=== PATIENT | female | born 1940 | race Caucasian/White ===

== ENCOUNTER 2017-10-24 16:16 | Outpatient (CLI) | payer MEDICARE, MEDICAID | END 2017-10-24 16:17 | disposition critical access hospital (66) | LOC: EMS 16:16 | PROVIDERS: ATTEND Surgery | DX: M54.2 Cervicalgia (principal); R51 Headache; R42 Dizziness and giddiness | CPT/HCPCS: A0425; A0427 ==

== ENCOUNTER 2017-10-24 16:34 | Inpatient (IN) | payer MEDICARE, MEDICAID ==
--- NOTE | 2017-10-24 17:03 | CT Preliminary Report ---
Exam: CT HEAD W/O STROKE PROTOCOL IMPRESSION: Normal head CT. [facility] The call report notification system was initiated by Dr. Leatha Silva at 16:59 hrs on 10/24/17. The above findings were discussed with Dr Lakhani by Dr. Leatha Silva at 17:02 hrs on 10/24/17. SITE ID: [id number]
[2017-10-24 17:13] LABS: BASOPHILS # (AUTO) 0.1 10^3/uL (0.0-0.1); BASOPHILS % (AUTO) 0.5 %; EOSINOPHILS # (AUTO) 0.1 10^3/uL (0.0-0.7); EOSINOPHILS % (AUTO) 0.8 %; HGB - HEMOGLOBIN 10.8 g/dL (12.0-16.0); LYMPHOCYTES # (AUTO) 1.5 10^3/uL (1.5-3.5); LYMPHOCYTES % (AUTO) 13.6 %; MEAN CORPUSCULAR HEMOGLOBIN 29.8 pg (27.0-31.0); MEAN CORPUSCULAR HGB CONC 32.2 g/dL (32.0-36.0); MEAN CORPUSCULAR VOLUME 92.7 fL (81.0-99.0); MEAN PLATELET VOLUME 7.1 fL (7.9-10.8); MONOCYTES # (AUTO) 0.8 10^3/uL (0.0-1.0); NEUTROPHILS # (AUTO) 8.7 10^3/uL (1.5-6.6); NEUTROPHILS % (AUTO) 78.1 %; PLT - PLATELET COUNT 284 10^3/uL (130-450); RED BLOOD COUNT 3.61 10^6/uL (4.20-5.40); RED CELL DISTRIBUTION WIDTH 14.2 % (12.0-15.0); WHITE BLOOD COUNT 11.2 x10^3/uL (4.8-10.8)
[2017-10-24 17:22] LABS: PT - PROTHROMBIN TIME 11.1 secs (9.9-12.6)
[2017-10-24 17:27] LABS: ALBUMIN 3.8 g/dL (3.2-5.5); ALBUMIN/GLOBULIN RATIO 1.3 (1.0-2.2); BILIRUBIN,TOTAL 0.2 mg/dL (0.2-1.0); CALCIUM 9.3 mg/dL (8.5-10.3); TOTAL PROTEIN 6.7 g/dL (6.7-8.2)
--- NOTE | 2017-10-24 17:29 | CT Report ---
EXAM: CT HEAD EXAM DATE: 10/24/2017 04:54 PM. CLINICAL HISTORY: History of prior stroke without residual deficit. Patient presents with right-sided weakness and left neck pain at 1300 today. COMPARISON: None. TECHNIQUE: Multiaxial CT images were obtained from the foramen magnum to the vertex. Reformats: Coron al. IV contrast: None. In accordance with CT protocol optimization, one or more of the following dose reduction techniques w ere utilized for this exam: automated exposure control, adjustment of mA and/or KV based on patient s ize, or use of iterative reconstructive technique. FINDINGS: Parenchyma: No intraparenchymal hemorrhage. No evidence of mass, midline shift, or CT findings of inf arction. Seymour-white differentiation is distinct. Extraaxial Spaces: Normal for age. No subdural or epidural collections identified. Ventricles: Normal in size and position. Sinuses and Orbits: Imaged paranasal sinuses, orbits, and mastoids show no significant abnormality. Bones: No evidence of fracture or calvarial defect. Other: None. IMPRESSION: Normal head CT. [facility] The call report notification system was initiated by Dr. Leatha Silva at 16:59 hrs on 10/24/17. The above findings were discussed with Dr Lakhani by Dr. Leatha Silva at 17:02 hrs on 10/24/17. Referring Provider Line: [phone] SITE ID: [id number]
[2017-10-24] MEDS ORDERED: IOPAMIDOL-300 100 ML VIAL ONE (17:32)
--- NOTE | 2017-10-24 17:48 | ED Physician Documentation ---
PD HPI FOCAL NEURO - Stated complaint Stated Complaint: POSS STROKE - Chief complaint Chief Complaint: Neuro - History obtained from History obtained from: Patient, Family - History of Present Illness Timing - onset: Enter time (1300), Today Timing - duration: Hours Timing - details: Abrupt onset, Still present Severity of deficit: Moderate Weakness: Hand, Leg, Foot, Right Associated symptoms: Neck pain Contributing factors: negative: Anticoagulated Baseline status: positive: A&OX3, ambulatory, indep, Cane Similar symptoms before: Has not had sx before Recently seen: Not recently seen - Additional information Additional information: 77 y/o female was at home this afternoon when she developed acute neck pain in the left side and felt that she could see the artery in her neck distended on the left side and shortly after she developed weakness on the right side. She is having some trouble with walking and the initially her speech was dysarthric according to family. The patient was initially reluctant to call 911 but she was able to call and was transported to the hospital. Review of Systems Constitutional: denies: Fever Eyes: denies: Decreased vision Ears: denies: Ear pain Nose: denies: Congestion Throat: denies: Sore throat Cardiac: denies: Chest pain / pressure, Palpitations Respiratory: denies: Dyspnea, Cough GI: denies: Abdominal Pain, Nausea, Vomiting : denies: Dysuria, Frequency Skin: denies: Rash Musculoskeletal: denies: Neck pain, Back pain, Extremity pain Neurologic: reports: Focal weakness, Difficulty speaking. denies: Generalized weakness, Numbness PD PAST MEDICAL HISTORY - Past Medical History Past Medical History: Yes Cardiovascular: Hypertension, [place] Respiratory: COPD Neuro: CVA Endocrine/Autoimmune: Type 2 diabetes - Past Surgical History Past Surgical History: Yes General: Cholecystectomy, Appendectomy, Bowel surgery Ortho: Hip replacement /UNIT AIDE: Hysterectomy - Present Medications Home Medications: Ambulatory Orders Medication Instructions Recorded Confirmed Alprazolam [Xanax] 0.25 mg PO HS 09/18/13 09/18/13 Aspirin [Aspir 81] 81 mg PO DAILY 09/18/13 09/18/13 Dexlansoprazole [Dexilant] 60 mg PO 09/18/13 09/18/13 HYDROcod/ACETAM 5/325 [Vicodin 1 - 2 ea PO Q6H PRN 09/18/13 09/18/13 5/325] Ibuprofen [Advil] 400 mg PO DAILY 09/18/13 09/18/13 Lisinopril [Zestril] 10 mg PO BID 09/18/13 09/18/13 Metformin HCl [Glumetza] 500 mg PO BID 09/18/13 09/18/13 - Allergies Allergies/Adverse Reactions: Allergies Allergy/AdvReac Type Severity Reaction Status Date / Time Penicillins Allergy Intermediate Rash Verified 10/24/17 17:18 diazepam [From Valium] AdvReac Intermediate "run up Verified 10/24/17 17:18 and down the melara" - Social History Does the pt smoke?: Yes Smoking Status: Current every day smoker Does the pt drink ETOH?: No Does the pt have substance abuse?: No PD ED PE NORMAL - Vitals Vital signs reviewed: Yes (normal ) - General General: Alert and oriented X 3, No acute distress, Well developed/nourished - HEENT HEENT: Atraumatic, PERRL, EOMI - Neck Neck: Supple, no meningeal sign, No bony TTP - Cardiac Cardiac: RRR, No murmur - Respiratory Respiratory: No respiratory distress, Clear bilaterally - Abdomen Abdomen: Soft, Non tender - Back Back: No CVA TTP, No spinal TTP - Derm Derm: Normal color, Warm and dry, No rash - Extremities Extremities: No deformity, No edema - Neuro Neuro: Alert and oriented X 3, No sensory deficit, Normal speech, Other (see stroke scale) Eye Opening: Spontaneous Motor: Obeys Commands Verbal: Oriented GCS Score: 15 - Psych Psych: Normal mood, Normal affect NIHSS - Level of Consciousness Level of consciousness: (0) Alert, Keenly responsive LOC Questions: (0) Answers both Q's correct LOC Commands: (0) Performs both correctly - Gaze Best Gaze: (0) Normal - Visual Visual: (1) Partial hemianopia - Facial Palsy Facial Palsy: (0) Normal, symmetrical movement - Motor Arms (both separate) Motor Arm (right): (1) Drift Motor Arm (left): (0) No drift - Motor Legs (both separate) Motor Leg (right): (2) Some effort against gravity Motor Leg (left): (0) No drift - Limb Ataxia Limb Ataxia: (1) Present in 1 limb - Sensory Sensory: (0) Normal - Best Language Best Language: (0) No aphasia - Dysarthria Dysarthria: (0) Normal - Extinction and Inattention (formally neg Extinction and inattention: (0) No abnormality - Total Score/Results Total Score/Result: 5 Results - Vitals Vitals: Vital Signs - 24 hr 10/24/17 10/24/17 16:32 18:31 Temperature 36.8 C 36.8 C Heart Rate 70 69 Respiratory 18 15 Rate Blood Pressure 121/66 130/65 O2 Saturation 96 Oxygen O2 Source Room air - EKG (time done) 1722 Rate: Rate (enter#) (68) Rhythm: NSR Compare to prior EKG: Changed from prior EKG (SPT 09-18-13 the rate has decreased) Computer interpretation: Agree with computer - Labs Labs: Laboratory Tests 10/24/17 10/24/17 10/24/17 17:03 17:03 17:03 WBC 11.2 H RBC 3.61 L Hgb 10.8 L Hct 33.5 L MCV 92.7 MCH 29.8 MCHC 32.2 RDW 14.2 Plt Count 284 MPV 7.1 L Neut # 8.7 H Lymph # 1.5 [place] # 0.8 Eos # 0.1 Baso # 0.1 Absolute Nucleated RBC 0.00 Nucleated RBC % 0.0 PT 11.1 INR 1.0 Sodium 135 Potassium 3.6 Chloride 106 Carbon Dioxide 19 L Anion Gap 10.0 BUN 42 H Creatinine 2.0 H Estimated GFR (MDRD) 24 L Glucose 121 H Calcium 9.3 Total Bilirubin 0.2 AST 13 ALT 10 Alkaline Phosphatase 97 Troponin I Total Protein 6.7 Albumin 3.8 Globulin 2.9 Albumin/Globulin Ratio 1.3 Lipase 32 10/24/17 17:03 WBC RBC Hgb Hct MCV MCH MCHC RDW Plt Count MPV Neut # Lymph # [place] # Eos # Baso # Absolute Nucleated RBC Nucleated RBC % PT INR Sodium Potassium Chloride Carbon Dioxide Anion Gap BUN Creatinine Estimated GFR (MDRD) Glucose Calcium Total Bilirubin AST ALT Alkaline Phosphatase Troponin I < 0.04 Total Protein Albumin Globulin Albumin/Globulin Ratio Lipase - Rads (name of study) CT neck angiogram Radiology: Prelim report reviewed (Impression: CTA neck 1. Vascular calcifications of the carotid bulbs with no significant high-grade stenosis seen.), EMP read indepedently, See rad report CT head without Radiology: Prelim report reviewed (Impression: Normal head CT.), EMP read indepedently, See rad report CT head angiogram Radiology: Prelim report reviewed (Impression: 1. No large vessel occlusion. 2. There is an infrarenal medially projecting outpouching arising from the supra clinoid right ICA measuring 1.3 x 1.9 mm (series 4, image 110). Finding may represent infundibulum or aneurysm. 3 No other findings to suggest additional definitive aneurysm.), EMP read indepedently, See rad report PD MEDICAL DECISION MAKING - ED course Complexity details: reviewed old records, reviewed results, re-evaluated patient , considered differential, d/w patient, d/w family ED course: 77-year-old female with stroke symptoms involving the left leg, and hand beginning about 1 PM today has had some improvement in her symptoms since being here in the emergency department. Stroke evaluation including CT of the head and CT angiogram of the head and neck are all without specific findings with the exception of the small aneurysm. The aneurysm is reviewed with Dr. Koenig at [facility] neuro[facility]iences and he recommends conservative treatment with the size location and age of the patient. I talked to Dr. Contreras Amin for admission of the patient to the hospital here for poststroke treatment. Departure - Departure Disposition: 66 [facility] DC/Xfer Clinical Impression: Cerebrovascular accident (CVA) Qualifiers: CVA mechanism: unspecified Qualified Code(s): I63.9 - Cerebral infarction, unspecified Condition: Stable
[2017-10-24] MEDS ORDERED: IOPAMIDOL-300 100 ML VIAL IVP ONE ×2 (18:03→19:42)
[2017-10-24] MEDS ORDERED: ACETAMINOPHEN 325 MG TABLET PO STA (18:23)
--- NOTE | 2017-10-24 18:45 | CT Report ---
EXAM: CT ANGIOGRAM HEAD AND NECK. CT SCAN HEAD WITH CONTRAST. EXAM DATE:10/24/2017 05:58 PM. CLINICAL HISTORY:77-year-old with history of prior stroke without residual deficit presenting with ri ght-sided weakness and neck pain COMPARISON:CT head 10/24/2017 at 1651 hrs.. TECHNIQUE: Routine axial helical CTA imaging was performed from the aortic arch through the [place] of [place]. Routine axial CT imaging of the head was performed prior to and following contrast administr ation. Reconstructions: Routine multiplanar 3D MIP reconstructions. IV contrast: 70 cc Isovue-370. NASCET Criteria are used for stenosis measurements. In accordance with CT protocol optimization, one or more of the following dose reduction techniques w ere utilized for this exam: automated exposure control, adjustment of mA and/or KV based on patient s ize, or use of iterative reconstructive technique. CT ANGIOGRAM HEAD AND NECK: After scattered calcifications of the aortic arch. Normal three-vessel takeoff. RIGHT: Common Carotid Artery: Patent without significant stenosis. Carotid Bulb: There is moderate atherosclerotic plaque at the bifurcation and siphon. Stenosis at the bifurcation by NASCET criteria: No significant stenosis. Internal Carotid Artery: There is tortuosity of the cervical ICA. No evidence of dissection. Vascular calcifications the cavernous ICA segments. There is a inferomedially projecting outpouching arising from the supraclinoid right ICA measuring 1.3 x 1.9 mm (series 4, image 110). External Carotid Artery: Unremarkable. Vertebral Artery: Patent without significant stenosis. No evidence of dissection. Anterior Cerebral Artery: Patent without significant stenosis, aneurysm, or vascular malformation. Middle Cerebral Artery: Patent without significant stenosis, aneurysm, or vascular malformation. Posterior Cerebral Artery: Patent without significant stenosis, aneurysm, or vascular malformation. Posterior Communicating Artery: Not definitively seen. No aneurysm. LEFT: Common Carotid Artery: Patent without significant stenosis. Carotid Bulb: There is mild to moderate atherosclerotic plaque at the bifurcation and siphon. Stenosi s at the bifurcation by NASCET criteria: No significant stenosis. Internal Carotid Artery: There is tortuosity of the cervical ICA. No evidence of dissection. Vascular calcifications the cavernous ICA segments. No evidence of aneurysm along the intracranial ICA. External Carotid Artery: Unremarkable. Vertebral Artery: Patent without significant stenosis. No evidence of dissection. Anterior Cerebral Artery: Atretic left A1 segment with normal-appearing left A2 and distal left PHAN b ranches secondary to flow through the anterior communicating artery. Middle Cerebral Artery: Patent without significant stenosis, aneurysm, or vascular malformation. Posterior Cerebral Artery: Patent without significant stenosis, aneurysm, or vascular malformation. Posterior Communicating Artery: Patent. No aneurysm. CENTRAL: Anterior Communicating Artery: Patent. No aneurysm. Basilar Artery: Patent without significant stenosis. No aneurysm. DURAL VENOUS SINUSES AND MAJOR CENTRAL VEINS: Patent. OTHER: The visualized pharynx and larynx appear normal. Major salivary glands appear normal. Right thyroid l obe punctate calcification measuring up to 3 mm (series 2, image 205). No cervical lymphadenopathy or necrotic lymph nodes seen. Soft tissues of the neck appear normal. Right middle lobe triangular shaped pulmonary nodule measuring up to 4 mm (series 2, image 35). Findi ng may be infectious or inflammatory in nature. No acute fracture or traumatic subluxation of the cervical spine. Multilevel degenerative changes. No suspicious osseous lesion. POST-CONTRAST HEAD: Parenchyma: No acute parenchymal hemorrhage, mass, or midline shift. Mild to moderate bilateral areas of white matter hypoattenuation appear chronic. No convincing CT evidence of acute infarct. No abnor mal postcontrast enhancement. Extra-axial Spaces: Normal. No extra-axial fluid collections or hemorrhage. No abnormal enhancement. Ventricles: The ventricles appear age appropriate. No abnormal enhancement. Orbits and Sinuses: Orbits are normal. Paranasal sinuses and mastoid air cells are clear. Extracranial Soft Tissues and Bones: Extracranial soft tissues are unremarkable. No fractures. Other: Vascular calcifications the cavernous ICA segments. IMPRESSION: CT HEAD 1. No acute infarct, hemorrhage, mass, hydrocephalus, or abnormal postcontrast enhancement. CTA NECK 1. Vascular calcifications of the carotid bulbs with no significant high-grade stenosis seen. CTA HEAD 1. No large vessel occlusion. 2. There is a inferomedially projecting outpouching arising from the supraclinoid right ICA measuring 1.3 x 1.9 mm (series 4, image 110). Finding may represent infundibulum or aneurysm. 3. No other findings to suggest additional definitive aneurysm. [facility] Referring Provider Line: [phone] SITE ID: [id number]
[2017-10-24] MEDS ORDERED: PROCHLORPERAZINE 10 MG/2 ML VIAL IVP PRN (19:38)
[2017-10-24] MEDS ORDERED: PROMETHAZINE 25 MG/1 ML VIAL IM PRN (19:38)
[2017-10-24] MEDS ORDERED: ONDANSETRON 4 MG/2 ML VIAL IVP PRN (19:38)
[2017-10-24] MEDS ORDERED: oxyCODONE 5 MG TABLET PO PRN (19:38)
[2017-10-24 20:29] LABS: % IRON SATURATION 9 % (20-50); IRON 33 ug/dL (28-170); TOTAL IRON BINDING CAPACITY 368 ug/dL (250-450); TRANSFERRIN 263 mg/dL (192-382)
[2017-10-24 20:36] LABS: FERRITIN 20.6 ng/mL (11.0-306.8)
[2017-10-24 20:39] LABS: FOLATE 8.77 ng/mL (5.90 - >24.8)
--- NOTE | 2017-10-24 21:23 | XRAY Report ---
EXAM: CHEST RADIOGRAPHY EXAM DATE: 10/24/2017 08:17 PM. CLINICAL HISTORY: Weakness. Leukocytosis. COMPARISON: 09/18/2013. TECHNIQUE: 1 view. FINDINGS: Lungs/Pleura: Mild right base scarring, otherwise no focal opacities evident. No pleural effusion. No pneumothorax. Mediastinum: Within exam limitations, the cardiomediastinal contour is normal. Other: No bony abnormalities noted. IMPRESSION: Mild right base scarring, otherwise unremarkable single view chest. [facility] Referring Provider Line: [phone] SITE ID: [id number]
--- NOTE | 2017-10-24 21:44 | HISTORY & PHYSICAL EXAMINATION ---
Chief Complaint - Chief Complaint Chief Complaint: Right sided weakness History of Present Illness - Admitted From Admitted From:: Emergency department - History Obtained From Records Reviewed: Yes History obtained from: Patient Exam Limitations: None - History of Present Illness HPI Comment/Other: Patient is a very pleasant 77-year-old female with a past medical history significant for CVA, hypertension, diabetes not currently on any medications, coronary artery disease status post stent, hyperlipidemia, colon cancer status post colon resection and history of hip fracture status post repair who presents to the emergency department with a chief complaint of left-sided weakness. The patient states that her symptoms started around 1 PM this afternoon. She states that she lives with her daughter and her daughter just bought a new house so they were cleaning her old house. She states that initially she began having pain in the left side of her neck which has been ongoing for the last few weeks. She states that she complained to her daughter and then sat down on a chair. While she was sitting down on the chair she states that she felt lightheaded and believes she may have passed out. She states that she was not out for very long time but was woken by her daughter. She then returned to her daughter's new home and try to rest. Then later in the afternoon she again experienced pain in her left neck and then noticed she could not lift her right foot. She states that she tried to lift her right foot off the ground but could not get it up. She states that she also tried to lift a Dr. Pepper off the table with her right hand and states that it fell to the floor as she could not keep it held in her hand. She also states that when her granddaughter came over to look at her that she told her that she had a slight left facial droop. The patient also states that she had tingling in her right hand and finally her family called 911 and the patient was brought to the emergency department by ambulance. The patient states that she continues to feel weak on the right side and has headache. She also continues to have the left-sided neck pain. The patient denies any fevers, chills, runny nose, sore throat, nasal congestion , difficulty swallowing, chest pain, shortness of air, cough, repetitions, orthopnea, PND, increased lower extremity swelling, abdominal pain, nausea, vomiting, diarrhea, constipation, urinary urgency, urinary frequency, dysuria, hematuria, polyuria, polydipsia, joint swelling, joint pain, muscle aches, back pain, neck stiffness, recent unintentional weight loss, changes in her appetite , skin changes, skin rash, hair loss, night sweats. On presentation to the emergency department the patient was afebrile and vital signs were within normal limits. The patient's lab work revealed a mild leukocytosis, a mild anemia, a creatinine of 2.0 from a baseline of 1.2 with a mild acidosis. The patient's lactic acid was negative her troponin was negative. The patient continued to have right sided arm and leg weakness. The patient's NIH stroke scale score was 5 according to the emergency room physician. The patient underwent a CT of her head which was normal, CT angiogram of her head and neck which showed no large vessel occlusion however there was a inferomedially projecting outpouching arising from the supraclinoid right ICA measuring 1.3 x 1.9 mm which could represent an aneurysm. The emergency room physician spoke with Dr. Koenig at [facility] who recommended conservative management and recommended the patient be placed in observation for MRI, neuro checks and an echocardiogram. 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 Living arrangement: At home Living Situation: With family Social History Notes: The patient is originally from near the [facility]. She has been living on [facility] for the last 10 years. Her daughter is a respiratory therapist at [employer] and she moved to be closer to her daughter. The patient had 3 daughters 1 of whom has in an unfortunate car accident and the other one has severe congestive heart failure. The patient has been twice and is now . She smoked 1 pack a day for 53 years quit in 2017. She denies any alcohol or drug use. - POLST POLST Status: DNR Meds/Allgy - Home Medications Home Medications: Ambulatory Orders Medication Instructions Recorded Confirmed Alprazolam [Xanax] 0.25 mg PO HS 09/18/13 09/18/13 Aspirin [Aspir 81] 81 mg PO DAILY 09/18/13 09/18/13 Dexlansoprazole [Dexilant] 60 mg PO 09/18/13 09/18/13 HYDROcod/ACETAM 5/325 [Vicodin 1 - 2 ea PO Q6H PRN 09/18/13 09/18/13 5/325] Ibuprofen [Advil] 400 mg PO DAILY 09/18/13 09/18/13 Lisinopril [Zestril] 10 mg PO BID 09/18/13 09/18/13 Metformin HCl [Glumetza] 500 mg PO BID 09/18/13 09/18/13 - Allergies Allergies/Adverse Reactions: Allergies Allergy/AdvReac Type Severity Reaction Status Date / Time Penicillins Allergy Intermediate Rash Verified 10/24/17 17:18 diazepam [From Valium] AdvReac Intermediate "run up Verified 10/24/17 17:18 and down the melara" Review of Systems - Other Findings Other Findings: A comprehensive review of systems was performed the pertinent positives and negatives are stated above in the HPI and the remainder of the review of systems is negative. Exam - Vital Signs Reviewed Vital Signs: Yes Vital Signs: Vital Signs x48h Temp Pulse Pulse Resp BP BP Pulse Ox 10/24/17 20:44 36.6 C 65 20 147/70 H 96 10/24/17 19:45 75 16 140/89 H 96 - Physical Exam General Appearance: positive: No acute distress, Alert Eyes Bilateral: positive: Normal inspection, PERRL, EOMI, No lid inflammation, Conjunctivae nml, No scleral icterus ENT: positive: ENT inspection nml, Pharynx nml, No signs of dehydration. negative: Purulent nasal drainage, Pharyngeal erythema, Oral lesions Neck: positive: Nml inspection, Thyroid nml, No JVD, Trachea midline. negative : Thyromegaly, Lymphadenopathy (R), Lymphadenopathy (L), Stiff neck, Carotid bruit, Tracheal deviation Respiratory: positive: Chest non-tender, No respiratory distress, Breath sounds nml. negative: Wheezes, Rales, Rhonchi Cardiovascular: positive: Regular rate & rhythm, No murmur, No gallop Peripheral Pulses: positive: 2+ Abdomen: positive: Non-tender, No organomegaly, Nml bowel sounds, No distention. negative: Guarding, Rebound, Hepatomegaly Back: positive: Nml inspection. negative: CVA tenderness (R), CVA tenderness (L ) Skin: positive: Color nml, No rash, Warm, Dry. negative: Cyanosis, Diaphoresis , Pallor Extremities: positive: Non-tender, Full ROM, Nml appearance, No pedal edema Neurologic/Psychiatric: positive: Oriented x3, CN's nml (2-12), Sensation nml, Mood/affect nml, Weakness (Right upper extremity 4/5 and right lower extremity 4 /5), Facial droop (Slight left facial droop) Conclusion/Plan - Problem List (1) Right sided weakness Conclusion/Plan: Patient presents with sudden onset of right sided weakness initially with the right leg and then also in the right arm. Patient has persistent right-sided weakness on examination in the emergency department as well as on the medical [place]. There is also some slight left facial droop. This is quite concerning for a cerebrovascular accident. The patient's CT head and CT angiogram were negative for an acute infarct or thrombus. The patient does have risk factors of a previous stroke, hypertension, hyperlipidemia, diabetes and age. 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 The emergency room physician did speak with the neurologist manager environmental affairs at [facility] who recommended conservative management for this finding. The patient will be managed with blood pressure control, aspirin and Lipitor. (3) ROSEMARY (acute kidney injury) Conclusion/Plan: On presentation the patient's creatinine was elevated to 2.0 from a baseline of 1.2. The patient had no significant electrolyte abnormalities she was slightly acidotic. The patient did appear to be dry on examination. Given her elevated BUN appears likely to be prerenal azotemia. Plan: Patient will be given IV fluids We will monitor creatinine Avoid nephrotoxic agents Renal ultrasound Hold lisinopril (4) Diabetes Conclusion/Plan: The patient has a history of diabetes. The patient states that she was previously on medication for diabetes but this was stopped once she lost weight. The patient however still appears to be on metformin and her medication list. At this time we will hold metformin and place patient on a diabetic diet. We will check a hemoglobin A1c if it is elevated we will consider starting the patient on sliding scale insulin. Qualifiers: Diabetes mellitus type: type 2 Diabetes mellitus care home insulin use: without rat exterminator use Diabetes mellitus complication status: with kidney complications Diabetes mellitus complication detail: with chronic kidney disease Chronic kidney disease stage: stage 3 (moderate) Qualified Code(s): E11.22 - Type 2 diabetes mellitus with diabetic chronic kidney disease; N18.3 - Chronic kidney disease, stage 3 (moderate); N18.3 - Chronic kidney disease, stage 3 (moderate) (5) Hypertension Conclusion/Plan: Patient has history of hypertension and is on lisinopril at home. We will hold the patient's lisinopril and allow for permissive hypertension. Qualifiers: Hypertension type: essential hypertension Qualified Code(s): I10 - Essential (primary) hypertension (6) Hyperlipidemia Conclusion/Plan: Patient has history of hyperlipidemia and does not appear to be on a lipid lowering agent at home. Given her presentation with likely CVA the patient will be started on Lipitor 80 mg and we will check her lipid profile. Qualifiers: Hyperlipidemia type: unspecified Qualified Code(s): E78.5 - Hyperlipidemia , unspecified - Lab Results Lab results reviewed: Yes Fish Bones: 10/24/17 17:03 10/24/17 17:03 Other Lab Results: Laboratory Results WBC 6.4 x10^3/uL (4.8-10.8) 10/25/17 04:41 RBC 3.29 10^6/uL (4.20-5.40) L 10/25/17 04:41 Hgb 9.8 g/dL (12.0-16.0) L 10/25/17 04:41 Hct 30.4 % (37.0-47.0) L 10/25/17 04:41 MCV 92.6 fL (81.0-99.0) 10/25/17 04:41 MCH 29.9 pg (27.0-31.0) 10/25/17 04:41 MCHC 32.3 g/dL (32.0-36.0) 10/25/17 04:41 RDW 14.6 % (12.0-15.0) 10/25/17 04:41 Plt Count 248 10^3/uL (130-450) 10/25/17 04:41 MPV 7.5 fL (7.9-10.8) L 10/25/17 04:41 Neut # 3.9 10^3/uL (1.5-6.6) 10/25/17 04:41 Lymph # 1.8 10^3/uL (1.5-3.5) 10/25/17 04:41 Colbert # 0.5 10^3/uL (0.0-1.0) 10/25/17 04:41 Eos # 0.2 10^3/uL (0.0-0.7) 10/25/17 04:41 Baso # 0.0 10^3/uL (0.0-0.1) 10/25/17 04:41 Absolute Nucleated RBC 0.00 x10^3/uL 10/25/17 04:41 Nucleated RBC % 0.0 /100WBC 10/25/17 04:41 PT 11.1 secs (9.9-12.6) 10/24/17 17:03 INR 1.0 (0.8-1.2) 10/24/17 17:03 Sodium 135 mmol/L (135-145) 10/24/17 17:03 Potassium 3.6 mmol/L (3.5-5.0) 10/24/17 17:03 Chloride 106 mmol/L (101-111) 10/24/17 17:03 Carbon Dioxide 19 mmol/L (21-32) L 10/24/17 17:03 Anion Gap 10.0 (6-13) 10/24/17 17:03 BUN 42 mg/dL (6-20) H 10/24/17 17:03 Creatinine 2.0 mg/dL (0.4-1.0) H 10/24/17 17:03 Estimated GFR (MDRD) 24 (>89) L 10/24/17 17:03 Glucose 121 mg/dL (70-100) H 10/24/17 17:03 Lactic Acid 0.5 mmol/L (0.5-2.2) 10/24/17 20:01 Calcium 9.3 mg/dL (8.5-10.3) 10/24/17 17:03 Iron 33 ug/dL (28-170) 10/24/17 17:03 TIBC 368 ug/dL (250-450) 10/24/17 17:03 % Saturation 9 % (20-50) L 10/24/17 17:03 Transferrin 263 mg/dL (192-382) 10/24/17 17:03 Ferritin 20.6 ng/mL (11.0-306.8) 10/24/17 17:03 Total Bilirubin 0.2 mg/dL (0.2-1.0) 10/24/17 17:03 AST 13 IU/L (10-42) 10/24/17 17:03 ALT 10 IU/L (10-60) 10/24/17 17:03 Alkaline Phosphatase 97 IU/L (42-121) 10/24/17 17:03 Troponin I < 0.04 ng/mL (<0.49) 10/24/17 17:03 Total Protein 6.7 g/dL (6.7-8.2) 10/24/17 17:03 Albumin 3.8 g/dL (3.2-5.5) 10/24/17 17:03 Globulin 2.9 g/dL (2.1-4.2) 10/24/17 17:03 Albumin/Globulin Ratio 1.3 (1.0-2.2) 10/24/17 17:03 Lipase 32 U/L (22-51) 10/24/17 17:03 Vitamin B12 310 pg/mL (180-914) 10/24/17 17:03 Folate 8.77 ng/mL (5.90 - >24.8) 10/24/17 17:03 - Diagnostic Imaging Results Diagnostic Imaging Results: positive: Final report reviewed Diagnostic Imaging Results Comments: EXAM: [id number] CT/HEADSP ([id number]) EXAM: CT HEAD EXAM DATE: 10/24/2017 04:54 PM. CLINICAL HISTORY: History of prior stroke without residual deficit. Patient presents with right- sided weakness and left neck pain at 1300 today. COMPARISON: None. TECHNIQUE: Multiaxial CT images were obtained from the foramen magnum to the vertex. Reformats: Coronal. IV contrast: None. In accordance with CT protocol optimization, one or more of the following dose reduction techniques were utilized for this exam: automated exposure control, adjustment of mA and/or KV based on patient size, or use of iterative reconstructive technique. FINDINGS: Parenchyma: No intraparenchymal hemorrhage. No evidence of mass, midline shift, or CT findings of infarction. Seymour-white differentiation is distinct. Extraaxial Spaces: Normal for age. No subdural or epidural collections identified. Ventricles: Normal in size and position. Sinuses and Orbits: Imaged paranasal sinuses, orbits, and mastoids show no significant abnormality. Bones: No evidence of fracture or calvarial defect. Other: None. IMPRESSION: Normal head CT. EXAM: [id number] CT/NECKANG ([id number]) EXAM: CT ANGIOGRAM HEAD AND NECK. CT SCAN HEAD WITH CONTRAST. EXAM DATE:10/24/2017 05:58 PM. CLINICAL HISTORY:77-year-old with history of prior stroke without residual deficit presenting with right-sided weakness and neck pain COMPARISON:CT head 10/24/2017 at 1651 hrs.. TECHNIQUE: Routine axial helical CTA imaging was performed from the aortic arch through the Andreafski of Alfaro. Routine axial CT imaging of the head was performed prior to and following contrast administration. Reconstructions: Routine multiplanar 3D MIP reconstructions. IV contrast: 70 cc Isovue-370. NASCET Criteria are used for stenosis measurements. In accordance with CT protocol optimization, one or more of the following dose reduction techniques were utilized for this exam: automated exposure control, adjustment of mA and/or KV based on patient size, or use of iterative reconstructive technique. CT ANGIOGRAM HEAD AND NECK: After scattered calcifications of the aortic arch. Normal three-vessel takeoff. RIGHT: Common Carotid Artery: Patent without significant stenosis. Carotid Bulb: There is moderate atherosclerotic plaque at the bifurcation and siphon. Stenosis at the bifurcation by NASCET criteria: No significant stenosis. Internal Carotid Artery: There is tortuosity of the cervical ICA. No evidence of dissection. Vascular calcifications the cavernous ICA segments. There is a inferomedially projecting outpouching arising from the supraclinoid right ICA measuring 1.3 x 1.9 mm ( series 4, image 110). External Carotid Artery: Unremarkable. Vertebral Artery: Patent without significant stenosis. No evidence of dissection. Anterior Cerebral Artery: Patent without significant stenosis, aneurysm, or vascular malformation. Middle Cerebral Artery: Patent without significant stenosis, aneurysm, or vascular malformation. Posterior Cerebral Artery: Patent without significant stenosis, aneurysm, or vascular malformation. Posterior Communicating Artery: Not definitively seen. No aneurysm. LEFT: Common Carotid Artery: Patent without significant stenosis. Carotid Bulb: There is mild to moderate atherosclerotic plaque at the bifurcation and siphon. Stenosis at the bifurcation by NASCET criteria: No significant stenosis. Internal Carotid Artery: There is tortuosity of the cervical ICA. No evidence of dissection. Vascular calcifications the cavernous ICA segments. No evidence of aneurysm along the intracranial ICA. External Carotid Artery: Unremarkable. Vertebral Artery: Patent without significant stenosis. No evidence of dissection. Anterior Cerebral Artery: Atretic left A1 segment with normal-appearing left A2 and distal left PHAN branches secondary to flow through the anterior communicating artery. Middle Cerebral Artery: Patent without significant stenosis, aneurysm, or vascular malformation. Posterior Cerebral Artery: Patent without significant stenosis, aneurysm, or vascular malformation. Posterior Communicating Artery: Patent. No aneurysm. CENTRAL: Anterior Communicating Artery: Patent. No aneurysm. Basilar Artery: Patent without significant stenosis. No aneurysm. DURAL VENOUS SINUSES AND MAJOR CENTRAL VEINS: Patent. OTHER: The visualized pharynx and larynx appear normal. Major salivary glands appear normal. Right thyroid lobe punctate calcification measuring up to 3 mm (series 2, image 205). No cervical lymphadenopathy or necrotic lymph nodes seen. Soft tissues of the neck appear normal. Right middle lobe triangular shaped pulmonary nodule measuring up to 4 mm ( series 2, image 35). Finding may be infectious or inflammatory in nature. No acute fracture or traumatic subluxation of the cervical spine. Multilevel degenerative changes. No suspicious osseous lesion. POST-CONTRAST HEAD: Parenchyma: No acute parenchymal hemorrhage, mass, or midline shift. Mild to moderate bilateral areas of white matter hypoattenuation appear chronic. No convincing CT evidence of acute infarct. No abnormal postcontrast enhancement. Extra-axial Spaces: Normal. No extra-axial fluid collections or hemorrhage. No abnormal enhancement. Ventricles: The ventricles appear age appropriate. No abnormal enhancement. Orbits and Sinuses: Orbits are normal. Paranasal sinuses and mastoid air cells are clear. Extracranial Soft Tissues and Bones: Extracranial soft tissues are unremarkable. No fractures. Other: Vascular calcifications the cavernous ICA segments. IMPRESSION: CT HEAD 1. No acute infarct, hemorrhage, mass, hydrocephalus, or abnormal postcontrast enhancement. CTA NECK 1. Vascular calcifications of the carotid bulbs with no significant high-grade stenosis seen. CTA HEAD 1. No large vessel occlusion. 2. There is a inferomedially projecting outpouching arising from the supraclinoid right ICA measuring 1.3 x 1.9 mm (series 4, image 110). Finding may represent infundibulum or aneurysm. 3. No other findings to suggest additional definitive aneurysm. EXAM: [id number] CT/HEADANG ([id number]) EXAM: CT ANGIOGRAM HEAD AND NECK. CT SCAN HEAD WITH CONTRAST. EXAM DATE:10/24/2017 05:58 PM. CLINICAL HISTORY:77-year-old with history of prior stroke without residual deficit presenting with right-sided weakness and neck pain COMPARISON:CT head 10/24/2017 at 1651 hrs.. TECHNIQUE: Routine axial helical CTA imaging was performed from the aortic arch through the Andreafski of [place]faro. Routine axial CT imaging of the head was performed prior to and following contrast administration. Reconstructions: Routine multiplanar 3D MIP reconstructions. IV contrast: 70 cc Isovue-370. NASCET Criteria are used for stenosis measurements. In accordance with CT protocol optimization, one or more of the following dose reduction techniques were utilized for this exam: automated exposure control, adjustment of mA and/or KV based on patient size, or use of iterative reconstructive technique. CT ANGIOGRAM HEAD AND NECK: After scattered calcifications of the aortic arch. Normal three-vessel takeoff. RIGHT: Common Carotid Artery: Patent without significant stenosis. Carotid Bulb: There is moderate atherosclerotic plaque at the bifurcation and siphon. Stenosis at the bifurcation by NASCET criteria: No significant stenosis. Internal Carotid Artery: There is tortuosity of the cervical ICA. No evidence of dissection. Vascular calcifications the cavernous ICA segments. There is a inferomedially projecting outpouching arising from the supraclinoid right ICA measuring 1.3 x 1.9 mm ( series 4, image 110). External Carotid Artery: Unremarkable. Vertebral Artery: Patent without significant stenosis. No evidence of dissection. Anterior Cerebral Artery: Patent without significant stenosis, aneurysm, or vascular malformation. Middle Cerebral Artery: Patent without significant stenosis, aneurysm, or vascular malformation. Posterior Cerebral Artery: Patent without significant stenosis, aneurysm, or vascular malformation. Posterior Communicating Artery: Not definitively seen. No aneurysm. LEFT: Common Carotid Artery: Patent without significant stenosis. Carotid Bulb: There is mild to moderate atherosclerotic plaque at the bifurcation and siphon. Stenosis at the bifurcation by NASCET criteria: No significant stenosis. Internal Carotid Artery: There is tortuosity of the cervical ICA. No evidence of dissection. Vascular calcifications the cavernous ICA segments. No evidence of aneurysm along the intracranial ICA. External Carotid Artery: Unremarkable. Vertebral Artery: Patent without significant stenosis. No evidence of dissection. Anterior Cerebral Artery: Atretic left A1 segment with normal-appearing left A2 and distal left PHAN branches secondary to flow through the anterior communicating artery. Middle Cerebral Artery: Patent without significant stenosis, aneurysm, or vascular malformation. Posterior Cerebral Artery: Patent without significant stenosis, aneurysm, or vascular malformation. Posterior Communicating Artery: Patent. No aneurysm. CENTRAL: Anterior Communicating Artery: Patent. No aneurysm. Basilar Artery: Patent without significant stenosis. No aneurysm. DURAL VENOUS SINUSES AND MAJOR CENTRAL VEINS: Patent. OTHER: The visualized pharynx and larynx appear normal. Major salivary glands appear normal. Right thyroid lobe punctate calcification measuring up to 3 mm (series 2, image 205). No cervical lymphadenopathy or necrotic lymph nodes seen. Soft tissues of the neck appear normal. Right middle lobe triangular shaped pulmonary nodule measuring up to 4 mm ( series 2, image 35). Finding may be infectious or inflammatory in nature. No acute fracture or traumatic subluxation of the cervical spine. Multilevel degenerative changes. No suspicious osseous lesion. POST-CONTRAST HEAD: Parenchyma: No acute parenchymal hemorrhage, mass, or midline shift. Mild to moderate bilateral areas of white matter hypoattenuation appear chronic. No convincing CT evidence of acute infarct. No abnormal postcontrast enhancement. Extra-axial Spaces: Normal. No extra-axial fluid collections or hemorrhage. No abnormal enhancement. Ventricles: The ventricles appear age appropriate. No abnormal enhancement. Orbits and Sinuses: Orbits are normal. Paranasal sinuses and mastoid air cells are clear. Extracranial Soft Tissues and Bones: Extracranial soft tissues are unremarkable. No fractures. Other: Vascular calcifications the cavernous ICA segments. IMPRESSION: CT HEAD 1. No acute infarct, hemorrhage, mass, hydrocephalus, or abnormal postcontrast enhancement. CTA NECK 1. Vascular calcifications of the carotid bulbs with no significant high-grade stenosis seen. CTA HEAD 1. No large vessel occlusion. 2. There is a inferomedially projecting outpouching arising from the supraclinoid right ICA measuring 1.3 x 1.9 mm (series 4, image 110). Finding may represent infundibulum or aneurysm. 3. No other findings to suggest additional definitive aneurysm. EXAM: [id number] [id number] ([id number]) EXAM: CHEST RADIOGRAPHY EXAM DATE: 10/24/2017 08:17 PM. CLINICAL HISTORY: Weakness. Leukocytosis. COMPARISON: 09/18/2013. TECHNIQUE: 1 view. FINDINGS: Lungs/Pleura: Mild right base scarring, otherwise no focal opacities evident. No pleural effusion. No pneumothorax. Mediastinum: Within exam limitations, the cardiomediastinal contour is normal. Other: No bony abnormalities noted. IMPRESSION: Mild right base scarring, otherwise unremarkable single view chest. - EKG Results EKG Interpreted Independently: Yes EKG Findings: Normal sinus rhythm with no ST changes. Core Measures - Anticipated LOS I expect patient to be DC'd or transferred within 96 hours.: Yes - DVT/VTE - Prophylaxis VTE/DVT Device ordered at admit?: Yes
[2017-10-24] MEDS: SODIUM CHLORIDE FLUSH 0.9% 10 ML SYRINGE IVP SCH (21:51)
[2017-10-24] MEDS: SODIUM CHLORIDE 0.9% 1,000 ML IV SCH (21:51)
[2017-10-24] MEDS: ATORVASTATIN 40 MG TABLET PO SCH (21:52)
[2017-10-24] MEDS: ALPRAZolam 0.25 MG TABLET PO SCH (21:52)
[2017-10-24] MEDS: ACETAMINOPHEN 325 MG TABLET PO PRN (21:52)
[2017-10-24] MEDS: INSULIN ASPART 300 UNIT/3 ML PEN SUBQ SCH (21:54)
[2017-10-24] MEDS ORDERED: CYCLOBENZAPRINE 10 MG TABLET PO PRN (22:30)
[2017-10-24] MEDS ORDERED: HALOPERIDOL 5 MG/ML VIAL IVP PRN (22:32)
[2017-10-24] MEDS: MORPHINE 2 MG/ML SYRINGE IVP PRN (22:44)
[2017-10-25] MEDS: MORPHINE 2 MG/ML SYRINGE IVP PRN ×4 (04:51→22:14)
[2017-10-25 05:13] LABS: BASOPHILS % (AUTO) 0.4 %; EOSINOPHILS # (AUTO) 0.2 10^3/uL (0.0-0.7); HGB - HEMOGLOBIN 9.8 g/dL (12.0-16.0); LYMPHOCYTES # (AUTO) 1.8 10^3/uL (1.5-3.5); LYMPHOCYTES % (AUTO) 27.7 %; MEAN CORPUSCULAR HEMOGLOBIN 29.9 pg (27.0-31.0); MEAN CORPUSCULAR HGB CONC 32.3 g/dL (32.0-36.0); MEAN CORPUSCULAR VOLUME 92.6 fL (81.0-99.0); MEAN PLATELET VOLUME 7.5 fL (7.9-10.8); MONOCYTES # (AUTO) 0.5 10^3/uL (0.0-1.0); MONOCYTES % (AUTO) 7.9 %; NEUTROPHILS # (AUTO) 3.9 10^3/uL (1.5-6.6); PLT - PLATELET COUNT 248 10^3/uL (130-450); RED BLOOD COUNT 3.29 10^6/uL (4.20-5.40); RED CELL DISTRIBUTION WIDTH 14.6 % (12.0-15.0); WHITE BLOOD COUNT 6.4 x10^3/uL (4.8-10.8)
[2017-10-25 05:17] LABS: INR 0.9 (0.8-1.2); PT - PROTHROMBIN TIME 10.6 secs (9.9-12.6)
[2017-10-25 05:22] LABS: ALBUMIN 3.1 g/dL (3.2-5.5); ALBUMIN/GLOBULIN RATIO 1.3 (1.0-2.2); ALKALINE PHOSPHATASE 80 IU/L (42-121); ALT ALANINE AMINOTRANSFERASE < 10 IU/L (10-60); AST ASPARTATE AMINOTRANSFERASE 11 IU/L (10-42); BILIRUBIN,TOTAL 0.3 mg/dL (0.2-1.0); BUN - BLOOD UREA NITROGEN 35 mg/dL (6-20); CALCIUM 8.6 mg/dL (8.5-10.3); CARBON DIOXIDE - CO2 20 mmol/L (21-32); CHLORIDE 109 mmol/L (101-111); CREATININE 1.4 mg/dL (0.4-1.0); GFR - MDRD 37 (>89); GLUCOSE 78 mg/dL (70-100); SODIUM 137 mmol/L (135-145); TOTAL PROTEIN 5.5 g/dL (6.7-8.2)
[2017-10-25 05:27] LABS: HB2 TOTAL 10.8 g/dL; HEMOGLOBIN A1C 0.38 g/dL; HEMOGLOBIN A1C % 5.4 % (4.6-6.2)
[2017-10-25 05:30] LABS: CHOL/HDL RATIO 3.9 (<4.4); CHOLESTEROL 114 mg/dL; HDL CHOLESTEROL 29 mg/dL; LDL CHOLESTEROL,CALCULATED 56 mg/dL; LDL/HDL RATIO 1.9 (<4.4); VLDL CHOLESTEROL 29 mg/dL
[2017-10-25 06:19] LABS: BILIRUBIN,URINE NEGATIVE (NEGATIVE); GLUCOSE, URINE (UA) NEGATIVE (NEGATIVE); KETONES,URINE (UA) NEGATIVE (NEGATIVE); LEUKOCYTE ESTERASE, URINE NEGATIVE (NEGATIVE); NITRITE,URINE NEGATIVE (NEGATIVE); OCCULT BLOOD,URINE NEGATIVE (NEGATIVE); PH,URINE 5.5 PH (5.0-7.5); PROTEIN,URINE NEGATIVE (NEGATIVE); UROBILINOGEN,URINE 0.2 (NORMAL) E.U./dL (NORMAL)
[2017-10-25 06:21] LABS: CLARITY,URINE CLEAR (CLEAR)
[2017-10-25 06:25] LABS: CREATININE,URINE 104.3 mg/dL; POTASSIUM,URINE 27.8 mmol/L
[2017-10-25] MEDS: INSULIN ASPART 300 UNIT/3 ML PEN SUBQ SCH ×4 (07:40→20:16)
[2017-10-25] MEDS: SODIUM CHLORIDE 0.9% 1,000 ML IV SCH ×2 (07:44→20:12)
[2017-10-25] MEDS: ACETAMINOPHEN 325 MG TABLET PO PRN ×2 (07:45→22:14)
[2017-10-25] MEDS: SODIUM CHLORIDE FLUSH 0.9% 10 ML SYRINGE IVP SCH ×2 (09:50→15:59)
[2017-10-25] MEDS: ASPIRIN EC 81 MG TABLET PO SCH (09:50)
[2017-10-25] MEDS: FAMOTIDINE 20 MG TABLET PO SCH (09:50)
[2017-10-25] MEDS: POLYETHYLENE GLYCOL 3350 17 GM PACKET PO SCH (09:50)
[2017-10-25] MEDS ORDERED: LORazepam 2 MG/ML VIAL IVP SCH (11:00)
[2017-10-25] MEDS ORDERED: METOCLOPRAMIDE 10 MG TABLET PO PRN (12:48)
[2017-10-25] MEDS ORDERED: HYDROcod/ACETAM 10 MG/325 MG TABLET PO PRN (12:48)
--- NOTE | 2017-10-25 13:51 | Ultrasound Report ---
RENAL ULTRASOUND: 10/25/2017 CLINICAL INDICATION: Renal failure. TECHNIQUE: Real-time scanning was performed with sales representative trainee static images obtained. FINDINGS The right kidney measures 9.7 x 5.6 x 4.2 cm, and the left kidney measures 8.5 x 4.8 x 4.4 cm. No hydronephrosis, focal renal lesion, or perinephric collection is seen. Prevoid, the bladder measures 10.0 x 9.6 x 8.3 cm, yielding a prevoid volume of 426 mL. The bladder wall appears normal. No postvoid residual was present. IMPRESSION: NORMAL RENAL ULTRASOUND. TD: 10/25/2017 12:02
--- NOTE | 2017-10-25 13:58 | MRI Report ---
EXAM: MRI BRAIN WITHOUT CONTRAST EXAM DATE: 10/25/2017 12:41 PM. CLINICAL HISTORY: Left leg weakness. History of colon cancer with previous resection. COMPARISON: CT scan and CT angiogram of the head 10/24/2017. TECHNIQUE: Multiplanar, multisequence T1-weighted and fluid-sensitive MR sequences of the brain were performed. Sequences optimized for routine evaluation. Other: None. IV Contrast: None. FINDINGS: (Study is limited by motion artifact.) Brain Volume: Normal for age. Parenchyma/Dura: No mass, acute infarct or hemorrhage. Moderate confluent periventricular with patchy deep and subcortical white matter T2 and FLAIR bright signal is seen throughout the cerebral hemisph eres. Mild patchy involvement of the brainstem is noted. No cortical signal abnormality. Ventricles/Cisterns: No hydrocephalus. No abnormal extra-axial fluid collection or hemorrhage. Orbits: Symmetric and unremarkable. Sella Turcica: The pituitary gland, cavernous sinuses, suprasellar cistern and optic chiasm are unrem arkable. IAC: Symmetric and unremarkable. Vasculature: Normal signal flow void is seen in the major arterial structures at the skull base. Sinuses: No acute appearing sinus disease. Bones: No focal pathologic appearing marrow signal changes. Other: None. IMPRESSION: (Study is limited by patient motion artifact.) 1. No acute intracranial abnormality. No acute infarct, mass, or hemorrhage. 2. Moderate white matter T2/FLAIR bright signal in the cerebral hemispheres and to a lesser extent br ainstem. Findings are nonspecific but typically secondary to small vessel ischemic change. [facility] Referring Provider Line: [phone] SITE ID: [id number]
--- NOTE | 2017-10-25 15:15 | PROVIDER PROGRESS NOTE ---
Assessment/Plan - Problem List (1) Cerebrovascular accident (CVA) Qualifiers: CVA mechanism: unspecified Qualified Code(s): I63.9 - Cerebral infarction, unspecified Assessment/Plan: Although the patient's CT of the head, brain MRI and CT angiogram were negative for any acute infarction or thrombus, the patient still has right-sided weakness. Her strength has improved from this morning from 2-3 of 5 to 3-4/5. We will continue to monitor and will possibly repeat repeat the MRI of the brain tomorrow. It is however greater than 24 hours since the onset of her symptoms and since they have not complete resolved I will call this a CVA. (2) ROSEMARY (acute kidney injury) Assessment/Plan: The patient's creatinine on admission was 2.0, today, less than 24 hours later, it is 1.4. Continue present care. (3) Diabetes Qualifiers: Diabetes mellitus type: type 2 Diabetes mellitus group home insulin use: without group home use Diabetes mellitus complication status: with kidney complications Diabetes mellitus complication detail: with chronic kidney disease Chronic kidney disease stage: stage 3 (moderate) Qualified Code(s): E11.22 - Type 2 diabetes mellitus with diabetic chronic kidney disease; N18.3 - Chronic kidney disease, stage 3 (moderate); N18.3 - Chronic kidney disease, stage 3 (moderate) Assessment/Plan: The patient is not on any at the hypoglycemic medications at home. We will cover her with an insulin sliding scale while she is admitted to the hospital. (4) Hyperlipidemia Qualifiers: Hyperlipidemia type: unspecified Qualified Code(s): E78.5 - Hyperlipidemia , unspecified (5) Hypertension Qualifiers: Hypertension type: essential hypertension Qualified Code(s): I10 - Essential (primary) hypertension Assessment/Plan: The patient's blood pressure is labile, going from 112/56 to 111/94 just a couple of hours later. We will continue the patient on her home medication regimen. - Current Meds Current Meds: Current Medications Generic Name Dose Route Start Last Admin Trade Name Freq PRN Reason Stop Dose Admin Acetaminophen 650 mg 10/24/17 19:38 10/25/17 07:45 Tylenol PO 650 mg Q4HR PRN Administration Pain 1 to 4 Alprazolam 0.25 mg 10/24/17 21:00 10/24/17 21:52 Xanax PO 0.25 mg HS ANA Administration Aspirin 81 mg 10/25/17 09:00 10/25/17 09:50 Ecotrin PO 81 mg DAILY ANA Administration Atorvastatin Calcium 80 mg 10/24/17 21:00 10/24/17 21:52 Lipitor PO 80 mg QPM ANA Administration Cyclobenzaprine HCl 10 mg 10/24/17 22:30 10/24/17 22:45 Flexeril PO 10 mg TID PRN Administration Spasms Famotidine 20 mg 10/25/17 09:00 10/25/17 09:50 Pepcid PO 20 mg DAILY ANA Administration Haloperidol 1 mg 10/24/17 22:32 10/24/17 22:44 Haldol Inj IVP 10/26/17 12:00 1 mg ONCE PRN Administration Before MRI Sodium Chloride 1,000 mls @ 100 mls/hr 10/24/17 20:00 10/25/17 13:00 Normal Saline 0.9% IV 100 mls/hr .Q10H ANA Infusion Insulin Aspart 1 - 5 unit 10/24/17 21:00 10/25/17 12:45 Novolog SUBQ Not Given 0800,1200,1700,2100 [facility] Protocol Morphine Sulfate 2 mg 10/24/17 22:30 10/25/17 04:51 Morphine IVP 2 mg Q2H PRN Administration PAIN Polyethylene Glycol 17 gm 10/25/17 09:00 10/25/17 09:50 Miralax PO Not Given DAILY [facility] Sodium Chloride 10 ml 10/25/17 01:00 10/25/17 09:50 Normal Saline Flush 0.9% IVP Not Given 0100,0900,1700 [facility] - Lab Result Fish Bone Diagrams: 10/25/17 04:41 10/25/17 04:41 - Diagnostic Imaging Results Diagnostic Imaging Results: Final report reviewed Diagnostic Imaging Results Comments: EXAM: MRI BRAIN WITHOUT CONTRAST EXAM DATE: 10/25/2017 12:41 PM. CLINICAL HISTORY: Left leg weakness. History of colon cancer with previous resection. COMPARISON: CT scan and CT angiogram of the head 10/24/2017. TECHNIQUE: Multiplanar, multisequence T1-weighted and fluid-sensitive MR sequences of the brain were performed. Sequences optimized for routine evaluation. Other: None. IV Contrast: None. FINDINGS: (Study is limited by motion artifact.) Brain Volume: Normal for age. Parenchyma/Dura: No mass, acute infarct or hemorrhage. Moderate confluent periventricular with patchy deep and subcortical white matter T2 and FLAIR bright signal is seen throughout the cerebral hemispheres. Mild patchy involvement of the brainstem is noted. No cortical signal abnormality. Ventricles/Cisterns: No hydrocephalus. No abnormal extra-axial fluid collection or hemorrhage. Orbits: Symmetric and unremarkable. Sella Turcica: The pituitary gland, cavernous sinuses, suprasellar cistern and optic chiasm are unremarkable. IAC: Symmetric and unremarkable. Vasculature: Normal signal flow void is seen in the major arterial structures at the skull base. Sinuses: No acute appearing sinus disease. Bones: No focal pathologic appearing marrow signal changes. Other: None. IMPRESSION: (Study is limited by patient motion artifact.) 1. No acute intracranial abnormality. No acute infarct, mass, or hemorrhage. 2. Moderate white matter T2/FLAIR bright signal in the cerebral hemispheres and to a lesser extent brainstem. Findings are nonspecific but typically secondary to small vessel ischemic change. EXAM: CT HEAD EXAM DATE: 10/24/2017 04:54 PM. CLINICAL HISTORY: History of prior stroke without residual deficit. Patient presents with right- sided weakness and left neck pain at 1300 today. COMPARISON: None. TECHNIQUE: Multiaxial CT images were obtained from the foramen magnum to the vertex. Reformats: Coronal. IV contrast: None. In accordance with CT protocol optimization, one or more of the following dose reduction techniques were utilized for this exam: automated exposure control, adjustment of mA and/or KV based on patient size, or use of iterative reconstructive technique. FINDINGS: Parenchyma: No intraparenchymal hemorrhage. No evidence of mass, midline shift, or CT findings of infarction. Seymour-white differentiation is distinct. Extraaxial Spaces: Normal for age. No subdural or epidural collections identified. Ventricles: Normal in size and position. Sinuses and Orbits: Imaged paranasal sinuses, orbits, and mastoids show no significant abnormality. Bones: No evidence of fracture or calvarial defect. Other: None. IMPRESSION: Normal head CT. EXAM: CT ANGIOGRAM HEAD AND NECK. CT SCAN HEAD WITH CONTRAST. EXAM DATE:10/24/2017 05:58 PM. CLINICAL HISTORY:77-year-old with history of prior stroke without residual deficit presenting with right-sided weakness and neck pain COMPARISON:CT head 10/24/2017 at 1651 hrs.. TECHNIQUE: Routine axial helical CTA imaging was performed from the aortic arch through the [place] of [place]. Routine axial CT imaging of the head was performed prior to and following contrast administration. Reconstructions: Routine multiplanar 3D MIP reconstructions. IV contrast: 70 cc Isovue-370. NASCET Criteria are used for stenosis measurements. In accordance with CT protocol optimization, one or more of the following dose reduction techniques were utilized for this exam: automated exposure control, adjustment of mA and/or KV based on patient size, or use of iterative reconstructive technique. CT ANGIOGRAM HEAD AND NECK: After scattered calcifications of the aortic arch. Normal three-vessel takeoff. RIGHT: Common Carotid Artery: Patent without significant stenosis. Carotid Bulb: There is moderate atherosclerotic plaque at the bifurcation and siphon. Stenosis at the bifurcation by NASCET criteria: No significant stenosis. Internal Carotid Artery: There is tortuosity of the cervical ICA. No evidence of dissection. Vascular calcifications the cavernous ICA segments. There is a inferomedially projecting outpouching arising from the supraclinoid right ICA measuring 1.3 x 1.9 mm ( series 4, image 110). External Carotid Artery: Unremarkable. Vertebral Artery: Patent without significant stenosis. No evidence of dissection. Anterior Cerebral Artery: Patent without significant stenosis, aneurysm, or vascular malformation. Middle Cerebral Artery: Patent without significant stenosis, aneurysm, or vascular malformation. Posterior Cerebral Artery: Patent without significant stenosis, aneurysm, or vascular malformation. Posterior Communicating Artery: Not definitively seen. No aneurysm. LEFT: Common Carotid Artery: Patent without significant stenosis. Carotid Bulb: There is mild to moderate atherosclerotic plaque at the bifurcation and siphon. Stenosis at the bifurcation by NASCET criteria: No significant stenosis. Internal Carotid Artery: There is tortuosity of the cervical ICA. No evidence of dissection. Vascular calcifications the cavernous ICA segments. No evidence of aneurysm along the intracranial ICA. External Carotid Artery: Unremarkable. Vertebral Artery: Patent without significant stenosis. No evidence of dissection. Anterior Cerebral Artery: Atretic left A1 segment with normal-appearing left A2 and distal left PHAN branches secondary to flow through the anterior communicating artery. Middle Cerebral Artery: Patent without significant stenosis, aneurysm, or vascular malformation. Posterior Cerebral Artery: Patent without significant stenosis, aneurysm, or vascular malformation. Posterior Communicating Artery: Patent. No aneurysm. CENTRAL: Anterior Communicating Artery: Patent. No aneurysm. Basilar Artery: Patent without significant stenosis. No aneurysm. DURAL VENOUS SINUSES AND MAJOR CENTRAL VEINS: Patent. OTHER: The visualized pharynx and larynx appear normal. Major salivary glands appear normal. Right thyroid lobe punctate calcification measuring up to 3 mm (series 2, image 205). No cervical lymphadenopathy or necrotic lymph nodes seen. Soft tissues of the neck appear normal. Right middle lobe triangular shaped pulmonary nodule measuring up to 4 mm ( series 2, image 35). Finding may be infectious or inflammatory in nature. No acute fracture or traumatic subluxation of the cervical spine. Multilevel degenerative changes. No suspicious osseous lesion. POST-CONTRAST HEAD: Parenchyma: No acute parenchymal hemorrhage, mass, or midline shift. Mild to moderate bilateral areas of white matter hypoattenuation appear chronic. No convincing CT evidence of acute infarct. No abnormal postcontrast enhancement. Extra-axial Spaces: Normal. No extra-axial fluid collections or hemorrhage. No abnormal enhancement. Ventricles: The ventricles appear age appropriate. No abnormal enhancement. Orbits and Sinuses: Orbits are normal. Paranasal sinuses and mastoid air cells are clear. Extracranial Soft Tissues and Bones: Extracranial soft tissues are unremarkable. No fractures. Other: Vascular calcifications the cavernous ICA segments. IMPRESSION: CT HEAD 1. No acute infarct, hemorrhage, mass, hydrocephalus, or abnormal postcontrast enhancement. CTA NECK 1. Vascular calcifications of the carotid bulbs with no significant high-grade stenosis seen. CTA HEAD 1. No large vessel occlusion. 2. There is a inferomedially projecting outpouching arising from the supraclinoid right ICA measuring 1.3 x 1.9 mm (series 4, image 110). Finding may represent infundibulum or aneurysm. 3. No other findings to suggest additional definitive aneurysm. - Additional Planning My Orders: My Active Orders 10/25/17 12:48 Metoclopramide [Reglan] 10 mg PO ACHS PRN 10/25/17 16:00 Pantoprazole [Protonix] 40 mg PO BIDAC 10/25/17 21:00 Lisinopril [Zestril] 20 mg PO BID 10/26/17 09:00 Escitalopram [Lexapro] 20 mg PO DAILY Metoprolol Succinate [Toprol Xl] 100 mg PO DAILY amLODIPine [Norvasc] 5 mg PO DAILY Subjective - Subjective Patient Reports: Other (The patient's only complaint is nervousness regarding her upcoming MRI. I have ordered her exam. She continues to have the right- sided weakness but this is showing some improvement.) Objective Vital Signs: Vital Signs - 24 hr 10/24/17 10/24/17 10/25/17 19:45 20:44 00:48 Temperature 36.6 C 36.6 C Heart Rate 75 Heart Rate [ 65 61 Brachial] Respiratory 16 20 18 Rate Blood Pressure 140/89 H Blood Pressure 147/70 H 98/47 L [Right Brachial artery] O2 Saturation 96 96 96 10/25/17 10/25/17 10/25/17 05:08 08:13 12:05 Temperature 36.7 C 36.5 C 36.5 C Heart Rate Heart Rate [ 64 65 72 Brachial] Respiratory 18 17 18 Rate Blood Pressure Blood Pressure 108/55 L 112/56 L 111/94 H [Right Brachial artery] O2 Saturation 94 95 98 10/25/17 10/25/17 10/25/17 12:15 12:30 13:02 Temperature Heart Rate Heart Rate [ 71 70 71 Brachial] Respiratory 17 16 17 Rate Blood Pressure Blood Pressure [Right Brachial artery] O2 Saturation 98 97 97 Oxygen O2 Source Room air I&O (Last 24 Hrs): Intake and Output Totals x24h 10/23/17 10/24/17 10/25/17 23:59 23:59 23:59 Intake Total 200 1725.000 Output Total 275 Balance 200 1450.000 General: Alert, Oriented x3, Cooperative HEENT: Atraumatic, PERRLA, EOMI Neck: Supple, No JVD, No thyromegaly Lymphatic: no adenopathy Neuro: Alert, CN 2-12 Grossly Intact, Oriented Times 3 Cardiovascular: Regular rate, Normal S1, Normal S2 Respiratory: Chest non-tender, No respiratory distress, Breath sounds nml Abdomen: Normal bowel sounds, Soft, No tenderness, No hepatospenomegaly Genitourinary: No Bleeding, No Discharge, No Tenderness Rectal: Control Positive Extremities: No clubbing, No cyanosis, No edema Skin: No rashes - Results Results: Laboratory Results WBC 6.4 x10^3/uL (4.8-10.8) 10/25/17 04:41 RBC 3.29 10^6/uL (4.20-5.40) L 10/25/17 04:41 Hgb 9.8 g/dL (12.0-16.0) L 10/25/17 04:41 Hct 30.4 % (37.0-47.0) L 10/25/17 04:41 MCV 92.6 fL (81.0-99.0) 10/25/17 04:41 MCH 29.9 pg (27.0-31.0) 10/25/17 04:41 MCHC 32.3 g/dL (32.0-36.0) 10/25/17 04:41 RDW 14.6 % (12.0-15.0) 10/25/17 04:41 Plt Count 248 10^3/uL (130-450) 10/25/17 04:41 MPV 7.5 fL (7.9-10.8) L 10/25/17 04:41 Neut # 3.9 10^3/uL (1.5-6.6) 10/25/17 04:41 Lymph # 1.8 10^3/uL (1.5-3.5) 10/25/17 04:41 Pettis # 0.5 10^3/uL (0.0-1.0) 10/25/17 04:41 Eos # 0.2 10^3/uL (0.0-0.7) 10/25/17 04:41 Baso # 0.0 10^3/uL (0.0-0.1) 10/25/17 04:41 Absolute Nucleated RBC 0.00 x10^3/uL 10/25/17 04:41 Nucleated RBC % 0.0 /100WBC 10/25/17 04:41 PT 10.6 secs (9.9-12.6) 10/25/17 04:41 INR 0.9 (0.8-1.2) 10/25/17 04:41 Sodium 137 mmol/L (135-145) 10/25/17 04:41 Potassium 3.3 mmol/L (3.5-5.0) L 10/25/17 04:41 Chloride 109 mmol/L (101-111) 10/25/17 04:41 Carbon Dioxide 20 mmol/L (21-32) L 10/25/17 04:41 Anion Gap 8.0 (6-13) 10/25/17 04:41 BUN 35 mg/dL (6-20) H 10/25/17 04:41 Creatinine 1.4 mg/dL (0.4-1.0) H 10/25/17 04:41 Estimated GFR (MDRD) 37 (>89) L 10/25/17 04:41 Glucose 78 mg/dL (70-100) 10/25/17 04:41 Glycated Hemoglobin 5.4 % (4.6-6.2) 10/25/17 04:41 Estim Average Glucose 108 (70-100) H 10/25/17 04:41 Lactic Acid 0.5 mmol/L (0.5-2.2) 10/24/17 20:01 Calcium 8.6 mg/dL (8.5-10.3) 10/25/17 04:41 Iron 33 ug/dL (28-170) 10/24/17 17:03 TIBC 368 ug/dL (250-450) 10/24/17 17:03 % Saturation 9 % (20-50) L 10/24/17 17:03 Transferrin 263 mg/dL (192-382) 10/24/17 17:03 Ferritin 20.6 ng/mL (11.0-306.8) 10/24/17 17:03 Total Bilirubin 0.3 mg/dL (0.2-1.0) 10/25/17 04:41 AST 11 IU/L (10-42) 10/25/17 04:41 ALT < 10 IU/L (10-60) L 10/25/17 04:41 Alkaline Phosphatase 80 IU/L (42-121) 10/25/17 04:41 Troponin I < 0.04 ng/mL (<0.49) 10/24/17 17:03 Total Protein 5.5 g/dL (6.7-8.2) L 10/25/17 04:41 Albumin 3.1 g/dL (3.2-5.5) L 10/25/17 04:41 Globulin 2.4 g/dL (2.1-4.2) 10/25/17 04:41 Albumin/Globulin Ratio 1.3 (1.0-2.2) 10/25/17 04:41 Triglycerides 146 mg/dL (-149) 10/25/17 05:08 Cholesterol 114 mg/dL (-199) 10/25/17 05:08 LDL Cholesterol, Calc 56 mg/dL (-129) 10/25/17 05:08 VLDL Cholesterol 29 mg/dL 10/25/17 05:08 HDL Cholesterol 29 mg/dL (60-) L 10/25/17 05:08 LDL/HDL Ratio 1.9 (<4.4) 10/25/17 05:08 Cholesterol/HDL Ratio 3.9 (<4.4) 10/25/17 05:08 Lipase 32 U/L (22-51) 10/24/17 17:03 Vitamin B12 310 pg/mL (180-914) 10/24/17 17:03 Folate 8.77 ng/mL (5.90 - >24.8) 10/24/17 17:03 Urine Color YELLOW 10/24/17 06:15 Urine Clarity CLEAR (CLEAR) 10/24/17 06:15 Urine pH 5.5 PH (5.0-7.5) 10/24/17 06:15 Ur Specific Theresa 1.015 (1.002-1.030) 10/24/17 06:15 Urine Protein NEGATIVE mg/dL (NEGATIVE) 10/24/17 06:15 Urine Glucose (UA) NEGATIVE mg/dL (NEGATIVE) 10/24/17 06:15 Urine Ketones NEGATIVE mg/dL (NEGATIVE) 10/24/17 06:15 Urine Occult Blood NEGATIVE (NEGATIVE) 10/24/17 06:15 Urine Nitrite NEGATIVE (NEGATIVE) 10/24/17 06:15 Urine Bilirubin NEGATIVE (NEGATIVE) 10/24/17 06:15 Urine Urobilinogen 0.2 (NORMAL) E.U./dL (NORMAL) 10/24/17 06:15 Ur Leukocyte Esterase NEGATIVE (NEGATIVE) 10/24/17 06:15 Ur Microscopic Review NOT INDICATED 10/24/17 06:15 Urine Culture Comments NOT INDICATED 10/24/17 06:15 Urine Creatinine 104.3 mg/dL 10/24/17 06:15 Urine Sodium 54.0 mmol/L 10/24/17 06:15 Urine Potassium 27.8 mmol/L 10/24/17 06:15
[2017-10-25] MEDS: PANTOPRAZOLE 40 MG TABLET PO SCH (15:59)
[2017-10-25] MEDS: SODIUM CHLORIDE FLUSH 0.9% 10 ML SYRINGE IVP PRN (19:11)
[2017-10-25] MEDS: ATORVASTATIN 40 MG TABLET PO SCH (20:12)
[2017-10-25] MEDS: LISINOPRIL 20 MG TABLET PO SCH (20:12)
[2017-10-25] MEDS: ALPRAZolam 0.25 MG TABLET PO SCH (20:12)
[2017-10-25] MEDS: oxyCODONE 5 MG TABLET PO PRN (22:14)
[2017-10-26] MEDS: SODIUM CHLORIDE FLUSH 0.9% 10 ML SYRINGE IVP SCH ×2 (00:15→07:43)
[2017-10-26] MEDS: MORPHINE 2 MG/ML SYRINGE IVP PRN ×4 (00:15→12:04)
[2017-10-26] MEDS: oxyCODONE 5 MG TABLET PO PRN ×2 (02:15→10:44)
[2017-10-26] MEDS: SODIUM CHLORIDE FLUSH 0.9% 10 ML SYRINGE IVP PRN ×3 (03:36→12:05)
[2017-10-26] MEDS: ACETAMINOPHEN 325 MG TABLET PO PRN ×2 (03:36→10:44)
[2017-10-26 05:04] LABS: BASOPHILS % (AUTO) 0.3 %; EOSINOPHILS # (AUTO) 0.1 10^3/uL (0.0-0.7); EOSINOPHILS % (AUTO) 2.2 %; HGB - HEMOGLOBIN 9.5 g/dL (12.0-16.0); LYMPHOCYTES # (AUTO) 0.7 10^3/uL (1.5-3.5); LYMPHOCYTES % (AUTO) 11.5 %; MEAN PLATELET VOLUME 7.3 fL (7.9-10.8); MONOCYTES # (AUTO) 0.4 10^3/uL (0.0-1.0); NEUTROPHILS # (AUTO) 5.1 10^3/uL (1.5-6.6); PLT - PLATELET COUNT 239 10^3/uL (130-450); RED BLOOD COUNT 3.16 10^6/uL (4.20-5.40); RED CELL DISTRIBUTION WIDTH 14.3 % (12.0-15.0); WHITE BLOOD COUNT 6.4 x10^3/uL (4.8-10.8)
[2017-10-26 05:12] LABS: ALBUMIN 3.1 g/dL (3.2-5.5); ALBUMIN/GLOBULIN RATIO 1.3 (1.0-2.2); ALKALINE PHOSPHATASE 77 IU/L (42-121); ALT ALANINE AMINOTRANSFERASE < 10 IU/L (10-60); AST ASPARTATE AMINOTRANSFERASE 13 IU/L (10-42); BILIRUBIN,TOTAL 0.2 mg/dL (0.2-1.0); BUN - BLOOD UREA NITROGEN 24 mg/dL (6-20); CALCIUM 8.6 mg/dL (8.5-10.3); CARBON DIOXIDE - CO2 21 mmol/L (21-32); CHLORIDE 112 mmol/L (101-111); CREATININE 0.9 mg/dL (0.4-1.0); GFR - MDRD 61 (>89); GLUCOSE 90 mg/dL (70-100); SODIUM 139 mmol/L (135-145); TOTAL PROTEIN 5.5 g/dL (6.7-8.2)
[2017-10-26] MEDS: SODIUM CHLORIDE 0.9% 1,000 ML IV SCH (05:50)
[2017-10-26] MEDS: PANTOPRAZOLE 40 MG TABLET PO SCH (06:30)
[2017-10-26] MEDS: INSULIN ASPART 300 UNIT/3 ML PEN SUBQ SCH (07:42)
[2017-10-26] MEDS ORDERED: METOPROLOL SUCCINATE 50 MG TABLET PO SCH (09:00)
[2017-10-26] MEDS ORDERED: amLODIPine 5 MG TABLET PO SCH (09:00)
[2017-10-26] MEDS ORDERED: ESCITALOPRAM 10 MG TABLET PO SCH (09:00)
[2017-10-26] MEDS: LISINOPRIL 20 MG TABLET PO SCH (09:31)
[2017-10-26] MEDS: FAMOTIDINE 20 MG TABLET PO SCH (09:32)
[2017-10-26] MEDS: ASPIRIN EC 81 MG TABLET PO SCH (09:32)
[2017-10-26] MEDS: POLYETHYLENE GLYCOL 3350 17 GM PACKET PO SCH (09:34)
--- NOTE | 2017-10-26 10:59 | Discharge Plan ---
Discharge Plan Disposition: 01 Home, Self Care Condition: Stable Diet: Cardiac Activity Restrictions: Activity as Tolerated Shower Restrictions: No Driving Restrictions: No Weight Bearing: Partial Weight Follow-Up Care: Home Health - PT No Smoking: If you smoke, Please STOP! Call for help. Follow-up with: Daniella Melton MD [Primary Care Provider] -
[2017-10-26 13:09] VITALS: BP 126/59
--- NOTE | 2017-10-26 17:47 | DISCHARGE SUMMARY ---
Discharge Summary Admit Date: 10/24/17 Discharge Date: 10/26/17 Discharging Provider: Clare Tyson DO Primary Care Provider: Daniella Melton Code Status: Do Not Attempt Resuscitation Condition at Discharge: Stable Discharge Disposition: 01 Home, Self Care - DIAGNOSES Admission Diagnoses: 1. Right-sided weakness 2. Aneurysm of right internal carotid artery 3. Acute kidney injury 4. Diabetes 5. Hypertension 6. Hyperlipidemia Discharge Diagnoses with Status of Each Condition: 1. Right-sided weakness- Still present, almost [address] of the brain, CTA of the head and neck, and brain MRI have failed to show any acute injury. The patient will follow up with her primary care physician and with a neurologist on discharge. 2. Aneurysm of right internal carotid artery- This was an incidental finding during the imaging studies. It does not appear to be dangerous and the neurologist from [facility] suggested it could be treated medically. 3. Acute kidney injury- Resolved, the patient's creatinine today is 0.9 4. Diabetes- Well-managed. The patient will resume her home anti- Hyperglycemic medication regimen. 5. Hypertension - Well-managed, continue present care. 6. Hyperlipidemia- Patient has history of hyperlipidemia and does not appear to be on a lipid lowering agent at home. Given her presentation with likely CVA the patient will be started on Lipitor 80 mg and we will check her lipid profile. - HPI History of Present Illness: From Dr. Amin's history and physical: Patient is a very pleasant 77-year-old female with a past medical history significant for CVA, hypertension, diabetes not currently on any medications, coronary artery disease status post stent, hyperlipidemia, colon cancer status post colon resection and history of hip fracture status post repair who presents to the emergency department with a chief complaint of left-sided weakness. The patient states that her symptoms started around 1 PM this afternoon. She states that she lives with her daughter and her daughter just bought a new house so they were cleaning her old house. She states that initially she began having pain in the left side of her neck which has been ongoing for the last few weeks. She states that she complained to her daughter and then sat down on a chair. While she was sitting down on the chair she states that she felt lightheaded and believes she may have passed out. She states that she was not out for very long time but was woken by her daughter. She then returned to her daughter's new home and try to rest. Then later in the afternoon she again experienced pain in her left neck and then noticed she could not lift her right foot. She states that she tried to lift her right foot off the ground but could not get it up. She states that she also tried to lift a Dr. Pepper off the table with her right hand and states that it fell to the floor as she could not keep it held in her hand. She also states that when her granddaughter came over to look at her that she told her that she had a slight left facial droop. The patient also states that she had tingling in her right hand and finally her family called 911 and the patient was brought to the emergency department by ambulance. The patient states that she continues to feel weak on the right side and has headache. She also continues to have the left-sided neck pain. The patient denies any fevers, chills, runny nose, sore throat, nasal congestion , difficulty swallowing, chest pain, shortness of air, cough, repetitions, orthopnea, PND, increased lower extremity swelling, abdominal pain, nausea, vomiting, diarrhea, constipation, urinary urgency, urinary frequency, dysuria, hematuria, polyuria, polydipsia, joint swelling, joint pain, muscle aches, back pain, neck stiffness, recent unintentional weight loss, changes in her appetite , skin changes, skin rash, hair loss, night sweats. On presentation to the emergency department the patient was afebrile and vital signs were within normal limits. The patient's lab work revealed a mild leukocytosis, a mild anemia, a creatinine of 2.0 from a baseline of 1.2 with a mild acidosis. The patient's lactic acid was negative her troponin was negative. The patient continued to have right sided arm and leg weakness. The patient's NIH stroke scale score was 5 according to the emergency room physician. The patient underwent a CT of her head which was normal, CT angiogram of her head and neck which showed no large vessel occlusion however there was a inferomedially projecting outpouching arising from the supraclinoid right ICA measuring 1.3 x 1.9 mm which could represent an aneurysm. The emergency room physician spoke with Dr. Koenig at [facility] who recommended conservative management and recommended the patient be placed in observation for MRI, neuro checks and an echocardiogram. - HOSPITAL COURSE Hospital Course: Patient was admitted to hospital and CT of her brain and CT angiogram were performed which were negative for any type of acute embolic/ischemic event. The following morning an MRI of her brain was done which again failed to show any type of acute event. Patient continued to have right-sided weakness however evaluation from physical therapy found her able to use a walker without any difficulty and as she has typically used a cane to ambulate this is not a significant decline. She is discharged home with instructions to follow-up with primary care physician and neurology in 1 week. - ALLERGIES Allergies/Adverse Reactions: Allergies Allergy/AdvReac Type Severity Reaction Status Date / Time Penicillins Allergy Intermediate Rash Verified 10/24/17 17:18 diazepam [From Valium] AdvReac Intermediate "run up Verified 10/24/17 17:18 and down the melara" - MEDICATIONS Home Medications: Ambulatory Orders Medication Instructions Recorded Confirmed Alprazolam [Xanax] 0.25 mg PO TID PRN 09/18/13 10/25/17 Dexlansoprazole [Dexilant] 60 mg PO QDAC 09/18/13 10/25/17 Escitalopram Oxalate [Lexapro] 20 mg PO DAILY 10/25/17 10/25/17 HYDROcodone/ACET 10/325 [[place] 10 1 tab PO Q6H PRN 10/25/17 10/25/17 mg/325 mg] Lisinopril 20 mg PO BID 10/25/17 10/25/17 Metoclopramide [Reglan] 10 mg PO ACHS PRN 10/25/17 10/25/17 Metoprolol Succinate [Toprol Xl] 100 mg PO DAILY 10/25/17 10/25/17 amLODIPine [Norvasc] 5 mg PO DAILY 10/25/17 10/25/17 Atorvastatin [Lipitor] 80 mg PO QPM tablet 10/26/17 Cyclobenzaprine [Flexeril] 10 mg PO TID PRN tablet 10/26/17 Famotidine [Pepcid] 20 mg PO DAILY tablet 10/26/17 Insulin Aspart [NovoLOG] 1 - 5 unit SUBQ 10/26/17 0800,1200,1700,2100 pen Polyethylene Glycol 3350 [Miralax] 17 gm PO DAILY packet 10/26/17 - PHYSICAL EXAM AT DISCHARGE General Appearance: positive: No acute distress, Alert Eyes Bilateral: positive: Normal inspection, PERRL, EOMI, No lid inflammation, Conjunctivae nml, No scleral icterus ENT: positive: ENT inspection nml, Pharynx nml, No signs of dehydration Neck: positive: Nml inspection, Thyroid nml, No JVD, Trachea midline. negative : Thyromegaly Respiratory: positive: Chest non-tender, No respiratory distress, Breath sounds nml. negative: Wheezes, Rales, Rhonchi Cardiovascular: positive: Regular rate & rhythm, No murmur, No gallop Peripheral Pulses: positive: 1+ Abdomen: positive: Non-tender, No organomegaly, Nml bowel sounds, No distention. negative: Guarding, Rebound Back: positive: Nml inspection. negative: CVA tenderness (R), CVA tenderness (L ) Skin: positive: Color nml, No rash, Warm, Dry. negative: Cyanosis Extremities: positive: Nml appearance, No pedal edema. negative: Non-tender, Joint swelling Neurologic/Psychiatric: positive: Oriented x3, CN's nml (2-12), Sensation nml, Mood/affect nml. negative: Motor nml (RUE strength 3-4/5, RLE strength 4-5/5) - LABS Result Diagrams: 10/26/17 04:45 10/26/17 04:45 - DIAGNOSTIC IMAGING Diagnostic Imaging Results: Final report reviewed Diagnostic Imaging Results Comments: EXAM: MRI BRAIN WITHOUT CONTRAST EXAM DATE: 10/25/2017 12:41 PM. CLINICAL HISTORY: Left leg weakness. History of colon cancer with previous resection. COMPARISON: CT scan and CT angiogram of the head 10/24/2017. TECHNIQUE: Multiplanar, multisequence T1-weighted and fluid-sensitive MR sequences of the brain were performed. Sequences optimized for routine evaluation. Other: None. IV Contrast: None. FINDINGS: (Study is limited by motion artifact.) Brain Volume: Normal for age. Parenchyma/Dura: No mass, acute infarct or hemorrhage. Moderate confluent periventricular with patchy deep and subcortical white matter T2 and FLAIR bright signal is seen throughout the cerebral hemispheres. Mild patchy involvement of the brainstem is noted. No cortical signal abnormality. Ventricles/Cisterns: No hydrocephalus. No abnormal extra-axial fluid collection or hemorrhage. Orbits: Symmetric and unremarkable. S[place]: The pituitary gland, cavernous sinuses, suprasellar cistern and optic chiasm are unremarkable. IAC: Symmetric and unremarkable. Vasculature: Normal signal flow void is seen in the major arterial structures at the skull base. Sinuses: No acute appearing sinus disease. Bones: No focal pathologic appearing marrow signal changes. Other: None. IMPRESSION: (Study is limited by patient motion artifact.) 1. No acute intracranial abnormality. No acute infarct, mass, or hemorrhage. 2. Moderate white matter T2/FLAIR bright signal in the cerebral hemispheres and to a lesser extent brainstem. Findings are nonspecific but typically secondary to small vessel ischemic change. EXAM: CT HEAD EXAM DATE: 10/24/2017 04:54 PM. CLINICAL HISTORY: History of prior stroke without residual deficit. Patient presents with right- sided weakness and left neck pain at 1300 today. COMPARISON: None. TECHNIQUE: Multiaxial CT images were obtained from the foramen magnum to the vertex. Reformats: Coronal. IV contrast: None. In accordance with CT protocol optimization, one or more of the following dose reduction techniques were utilized for this exam: automated exposure control, adjustment of mA and/or KV based on patient size, or use of iterative reconstructive technique. FINDINGS: Parenchyma: No intraparenchymal hemorrhage. No evidence of mass, midline shift, or CT findings of infarction. Seymour-white differentiation is distinct. Extraaxial Spaces: Normal for age. No subdural or epidural collections identified. Ventricles: Normal in size and position. Sinuses and Orbits: Imaged paranasal sinuses, orbits, and mastoids show no significant abnormality. Bones: No evidence of fracture or calvarial defect. Other: None. IMPRESSION: Normal head CT. EXAM: CT ANGIOGRAM HEAD AND NECK. CT SCAN HEAD WITH CONTRAST. EXAM DATE:10/24/2017 05:58 PM. CLINICAL HISTORY:77-year-old with history of prior stroke without residual deficit presenting with right-sided weakness and neck pain COMPARISON:CT head 10/24/2017 at 1651 hrs.. TECHNIQUE: Routine axial helical CTA imaging was performed from the aortic arch through the [place] of [place]. Routine axial CT imaging of the head was performed prior to and following contrast administration. Reconstructions: Routine multiplanar 3D MIP reconstructions. IV contrast: 70 cc Isovue-370. NASCET Criteria are used for stenosis measurements. In accordance with CT protocol optimization, one or more of the following dose reduction techniques were utilized for this exam: automated exposure control, adjustment of mA and/or KV based on patient size, or use of iterative reconstructive technique. CT ANGIOGRAM HEAD AND NECK: After scattered calcifications of the aortic arch. Normal three-vessel takeoff. RIGHT: Common Carotid Artery: Patent without significant stenosis. Carotid Bulb: There is moderate atherosclerotic plaque at the bifurcation and siphon. Stenosis at the bifurcation by NASCET criteria: No significant stenosis. Internal Carotid Artery: There is tortuosity of the cervical ICA. No evidence of dissection. Vascular calcifications the cavernous ICA segments. There is a inferomedially projecting outpouching arising from the supraclinoid right ICA measuring 1.3 x 1.9 mm ( series 4, image 110). External Carotid Artery: Unremarkable. Vertebral Artery: Patent without significant stenosis. No evidence of dissection. Anterior Cerebral Artery: Patent without significant stenosis, aneurysm, or vascular malformation. Middle Cerebral Artery: Patent without significant stenosis, aneurysm, or vascular malformation. Posterior Cerebral Artery: Patent without significant stenosis, aneurysm, or vascular malformation. Posterior Communicating Artery: Not definitively seen. No aneurysm. LEFT: Common Carotid Artery: Patent without significant stenosis. Carotid Bulb: There is mild to moderate atherosclerotic plaque at the bifurcation and siphon. Stenosis at the bifurcation by NASCET criteria: No significant stenosis. Internal Carotid Artery: There is tortuosity of the cervical ICA. No evidence of dissection. Vascular calcifications the cavernous ICA segments. No evidence of aneurysm along the intracranial ICA. External Carotid Artery: Unremarkable. Vertebral Artery: Patent without significant stenosis. No evidence of dissection. Anterior Cerebral Artery: Atretic left A1 segment with normal-appearing left A2 and distal left PHAN branches secondary to flow through the anterior communicating artery. Middle Cerebral Artery: Patent without significant stenosis, aneurysm, or vascular malformation. Posterior Cerebral Artery: Patent without significant stenosis, aneurysm, or vascular malformation. Posterior Communicating Artery: Patent. No aneurysm. CENTRAL: Anterior Communicating Artery: Patent. No aneurysm. Basilar Artery: Patent without significant stenosis. No aneurysm. DURAL VENOUS SINUSES AND MAJOR CENTRAL VEINS: Patent. OTHER: The visualized pharynx and larynx appear normal. Major salivary glands appear normal. Right thyroid lobe punctate calcification measuring up to 3 mm (series 2, image 205). No cervical lymphadenopathy or necrotic lymph nodes seen. Soft tissues of the neck appear normal. Right middle lobe triangular shaped pulmonary nodule measuring up to 4 mm ( series 2, image 35). Finding may be infectious or inflammatory in nature. No acute fracture or traumatic subluxation of the cervical spine. Multilevel degenerative changes. No suspicious osseous lesion. POST-CONTRAST HEAD: Parenchyma: No acute parenchymal hemorrhage, mass, or midline shift. Mild to moderate bilateral areas of white matter hypoattenuation appear chronic. No convincing CT evidence of acute infarct. No abnormal postcontrast enhancement. Extra-axial Spaces: Normal. No extra-axial fluid collections or hemorrhage. No abnormal enhancement. Ventricles: The ventricles appear age appropriate. No abnormal enhancement. Orbits and Sinuses: Orbits are normal. Paranasal sinuses and mastoid air cells are clear. Extracranial Soft Tissues and Bones: Extracranial soft tissues are unremarkable. No fractures. Other: Vascular calcifications the cavernous ICA segments. IMPRESSION: CT HEAD 1. No acute infarct, hemorrhage, mass, hydrocephalus, or abnormal postcontrast enhancement. CTA NECK 1. Vascular calcifications of the carotid bulbs with no significant high-grade stenosis seen. CTA HEAD 1. No large vessel occlusion. 2. There is a inferomedially projecting outpouching arising from the supraclinoid right ICA measuring 1.3 x 1.9 mm (series 4, image 110). Finding may represent infundibulum or aneurysm. 3. No other findings to suggest additional definitive aneurysm. - FOLLOW UP Follow Up: The patient will follow up with her primary care provider and urology next week. - TIME SPENT Time Spent in Discharge (Minutes): 35
== END 2017-10-26 14:39 | disposition home health service (06) | DRG 65 ==
LOC: EDBD → EDUNIT# → ED 16:34 → OBS 19:41 → OBSVTOIN 10-25 16:13 → MS3 10-25 18:45
PROVIDERS: ADMIT Internal Medicine; ATTEND Hospitalist
DX: I63.9 Cerebral infarction, unspecified (principal); G81.91 Hemiplegia, unspecified affecting right dominant side; H53.47 Heteronymous bilateral field defects; N17.9 Acute kidney failure, unspecified; E87.2 Acidosis; R29.810 Facial weakness; R29.705 NIHSS score 5; I67.1 Cerebral aneurysm, nonruptured; E11.22 Type 2 diabetes mellitus with diabetic chronic kidney disease; N18.3 Chronic kidney disease, stage 3 (moderate); I10 Essential (primary) hypertension; J44.9 Chronic obstructive pulmonary disease, unspecified; I25.2 Old myocardial infarction; E78.5 Hyperlipidemia, unspecified; E11.9 Type 2 diabetes mellitus without complications; I25.10 Atherosclerotic heart disease of native coronary artery without angina pectoris; Z79.82 Long term (current) use of aspirin; Z66 Do not resuscitate; Z87.891 Personal history of nicotine dependence; Z95.5 Presence of coronary angioplasty implant and graft; Z86.73 Personal history of transient ischemic attack (TIA), and cerebral infarction without residual deficits; Z85.038 Personal history of other malignant neoplasm of large intestine; Z90.49 Acquired absence of other specified parts of digestive tract
CPT/HCPCS: 36415; 70450; 70496; 70498; 70551; 71045; 76770; 80053; 80061; 81001; 81003; 82570; 82607; 82728; 82746; 83036; 83540; 83605; 83690; 83721; 84133; 84156; 84300; 84466; 84484; 85025; 85610; 87086; 93005; 93306; 96361; 96374; 96375; 96376; 99284; 99285

== ENCOUNTER 2018-01-26 14:28 | Outpatient (CLI) | payer MEDICARE, MEDICAID | END 2018-01-26 14:29 | disposition critical access hospital (66) | LOC: EMS 14:28 | PROVIDERS: ATTEND Surgery | DX: R51 Headache (principal); R53.1 Weakness; R47.81 Slurred speech | CPT/HCPCS: A0425; A0429; A0999 ==

== ENCOUNTER 2018-01-26 14:48 | Inpatient (IN) | payer MEDICARE, MEDICAID ==
[2018-01-26] MEDS ORDERED: SODIUM CHLORIDE 0.9% 1,000 ML IV ONE (15:57)
--- NOTE | 2018-01-26 16:03 | ED Physician Documentation ---
History of Present Illness - Stated complaint Stated Complaint: POSS STROKE - History obtained from History obtained from: Patient - History of Present Illness Timing: Today - Additonal information Additional information: 77-year-old female is had a recent CVA about 3 months ago has developed some fatigue low-grade fever and cough. She was up late last night and slept in this morning and when her grandson went to wake her up she had a difficult time pulling the bed covers off with her right arm and she had slurring of her speech. Her symptoms now have resolved. She continues to have some weakness in the right side which is similar to what she has had previously with her CVA. She states she has not seen her primary care doctor in follow-up since her admission here 3 months ago. Her cough has been present for some time and her cough is worse over the past week. Review of Systems Constitutional: reports: Fever, Myalgias, Fatigue Eyes: denies: Decreased vision Ears: denies: Ear pain Nose: denies: Rhinorrhea / runny nose, Congestion Throat: denies: Sore throat Cardiac: denies: Chest pain / pressure, Palpitations Respiratory: reports: Dyspnea, Cough GI: denies: Abdominal Pain, Nausea, Vomiting : denies: Dysuria, Frequency Skin: denies: Rash Musculoskeletal: denies: Neck pain, Back pain, Extremity pain Neurologic: reports: Focal weakness, Numbness, Difficulty speaking, Headache, Head injury. denies: Generalized weakness, Confused, LOC Psychiatric: denies: Depressed PD PAST MEDICAL HISTORY - Past Medical History Cardiovascular: Hypertension, High cholesterol, Coronary artery disease, [place] Respiratory: COPD Endocrine/Autoimmune: Type 2 diabetes GI: GERD, Chronic diarrhea, Other (Colon cancer status post resection) : Incontinence HEENT: None Psych: Depression Musculoskeletal: Rheumatoid arthritis, Osteoporosis Derm: None - Past Surgical History Past Surgical History: Yes General: Cholecystectomy, Appendectomy, Bowel surgery Ortho: Hip replacement /RESAW FEEDER: Hysterectomy Cardiovascular: Coronary stent - Present Medications Home Medications: Ambulatory Orders Medication Instructions Recorded Confirmed Alprazolam [Xanax] 0.25 mg PO TID PRN 09/18/13 10/25/17 Dexlansoprazole [Dexilant] 60 mg PO QDAC 09/18/13 10/25/17 Escitalopram Oxalate [Lexapro] 20 mg PO DAILY 10/25/17 10/25/17 HYDROcodone/ACET 10/325 [[place] 10 1 tab PO Q6H PRN 10/25/17 10/25/17 mg/325 mg] Lisinopril 20 mg PO BID 10/25/17 10/25/17 Metoclopramide [Reglan] 10 mg PO ACHS PRN 10/25/17 10/25/17 Metoprolol Succinate [Toprol Xl] 100 mg PO DAILY 10/25/17 10/25/17 amLODIPine [Norvasc] 5 mg PO DAILY 10/25/17 10/25/17 Atorvastatin [Lipitor] 80 mg PO QPM tablet 10/26/17 Cyclobenzaprine [Flexeril] 10 mg PO TID PRN tablet 10/26/17 Famotidine [Pepcid] 20 mg PO DAILY tablet 10/26/17 Insulin Aspart [NovoLOG] 1 - 5 unit SUBQ 10/26/17 0800,1200,1700,2100 pen Polyethylene Glycol 3350 [Miralax] 17 gm PO DAILY packet 10/26/17 - Allergies Allergies/Adverse Reactions: Allergies Allergy/AdvReac Type Severity Reaction Status Date / Time Penicillins Allergy Intermediate Rash Verified 10/24/17 17:18 diazepam [From Valium] AdvReac Intermediate "run up Verified 10/24/17 17:18 and down the melara" - Social History Does the pt smoke?: Yes Smoking Status: Former smoker Does the pt drink ETOH?: No Does the pt have substance abuse?: No - POLST POLST Status: DNR PD ED PE NORMAL - Vitals Vital signs reviewed: Yes - General General: Alert and oriented X 3, No acute distress, Well developed/nourished - HEENT HEENT: Atraumatic, PERRL, EOMI - Neck Neck: Supple, no meningeal sign, No bony TTP - Cardiac Cardiac: RRR, No murmur - Respiratory Respiratory: No respiratory distress, Other (rhonchi in the right base) - Abdomen Abdomen: Soft, Non tender - Back Back: No CVA TTP, No spinal TTP - Derm Derm: Normal color, Warm and dry, No rash - Extremities Extremities: No deformity, No edema - Neuro Neuro: Alert and oriented X 3, cardiac exercise specialist 2-12 intact, No sensory deficit, Normal speech, Other (There is weakness to the right fur finisher . ) Eye Opening: Spontaneous Motor: Obeys Commands Verbal: Oriented GCS Score: 15 - Psych Psych: Normal mood, Normal affect Results - Vitals Vitals: Oxygen O2 Source Room air - EKG (time done) 1639 Rate: Rate (enter#) (78) Rhythm: LAE Ischemia: Normal ST segments Compare to prior EKG: Unchanged from prior EKG (10-25-17) Computer interpretation: Agree with computer - Labs Labs: Laboratory Tests 01/26/18 01/26/18 01/26/18 16:08 16:08 16:08 WBC 13.6 H RBC 3.30 L Hgb 10.2 L Hct 30.6 L MCV 92.5 MCH 30.9 MCHC 33.4 RDW 14.6 Plt Count 286 MPV 7.3 L Neut # (Auto) 12.3 H Lymph # (Auto) 0.5 L [place] # (Auto) 0.7 Eos # (Auto) 0.0 Baso # (Auto) 0.1 Absolute Nucleated RBC 0.00 Nucleated RBC % 0.0 Sodium 136 Potassium 3.8 Chloride 108 Carbon Dioxide 19 L Anion Gap 9.0 BUN 26 H Creatinine 1.4 H Estimated GFR (MDRD) 37 L Glucose 88 Lactic Acid Calcium 8.7 Total Bilirubin 0.4 AST 16 ALT 14 Alkaline Phosphatase 102 Troponin I < 0.04 Total Protein 5.6 L Albumin 2.8 L Globulin 2.8 Albumin/Globulin Ratio 1.0 Lipase 16 L 01/26/18 16:08 WBC RBC Hgb Hct MCV MCH MCHC RDW Plt Count MPV Neut # (Auto) Lymph # (Auto) [place] # (Auto) Eos # (Auto) Baso # (Auto) Absolute Nucleated RBC Nucleated RBC % Sodium Potassium Chloride Carbon Dioxide Anion Gap BUN Creatinine Estimated GFR (MDRD) Glucose Lactic Acid 0.7 Calcium Total Bilirubin AST ALT Alkaline Phosphatase Troponin I Total Protein Albumin Globulin Albumin/Globulin Ratio Lipase - Rads (name of study) 2 veiw chest Radiology: Prelim report reviewed (Impression: Opacities throughout the right lung suspicious for pneumonia.), EMP read indepedently, See rad report CT head without Radiology: Prelim report reviewed (Impression: No acute intracranial abnormality.), EMP read indepedently, See rad report Procedures - IVC sono (time) 1550 Bedside IVC sono: IVC measures (cm) (0.93), IVC collapsed c insp (cm) (complete) , Dehydration (est 2 liter deficit) PD MEDICAL DECISION MAKING - ED course Complexity details: reviewed old records, reviewed results, re-evaluated patient , considered differential, d/w patient, d/w family ED course: 77-year-old female with weakness and dizziness as well as cough and fever has not increasing her stroke symptoms today seem improved on arrival to the emergency department. She is found to be significantly dehydrated on interrogation of the inferior vena cava and saline is begun. She has rhonchi in the right base of her lung. Looks like pneumonia on CXR and she is administered IV rocephin as well . - Sepsis Event Vital Signs: Oxygen O2 Source Room air Departure - Departure Disposition: 66 [facility] DC/Xfer Clinical Impression: Right sided weakness, Dehydration Pneumonia Qualifiers: Pneumonia type: due to unspecified organism Laterality: right Lung location: lower lobe of lung Qualified Code(s): J18.1 - Lobar pneumonia, unspecified organism
[2018-01-26 16:12] LABS: EOSINOPHILS % (AUTO) 0.1 %; LYMPHOCYTES # (AUTO) 0.5 10^3/uL (1.5-3.5); MONOCYTES # (AUTO) 0.7 10^3/uL (0.0-1.0); WHITE BLOOD COUNT 13.6 x10^3/uL (4.8-10.8)
[2018-01-26 16:19] LABS: BASOPHILS # (AUTO) 0.1 10^3/uL (0.0-0.1); BASOPHILS % (AUTO) 0.4 %; HGB - HEMOGLOBIN 10.2 g/dL (12.0-16.0); LYMPHOCYTES % (AUTO) 3.6 %; MEAN CORPUSCULAR HEMOGLOBIN 30.9 pg (27.0-31.0); MEAN CORPUSCULAR HGB CONC 33.4 g/dL (32.0-36.0); MEAN CORPUSCULAR VOLUME 92.5 fL (81.0-99.0); MEAN PLATELET VOLUME 7.3 fL (7.9-10.8); MONOCYTES % (AUTO) 5.4 %; NEUTROPHILS # (AUTO) 12.3 10^3/uL (1.5-6.6); NEUTROPHILS % (AUTO) 90.5 %; PLT - PLATELET COUNT 286 10^3/uL (130-450); RED CELL DISTRIBUTION WIDTH 14.6 % (12.0-15.0)
[2018-01-26] MEDS ORDERED: cefTRIAXone 1 GM in SODIUM CHLORIDE 0.9% MINIBAG 100 ML IV STA (16:22)
[2018-01-26 16:26] LABS: ALBUMIN 2.8 g/dL (3.2-5.5); BILIRUBIN,TOTAL 0.4 mg/dL (0.2-1.0); CALCIUM 8.7 mg/dL (8.5-10.3); CREATININE 1.4 mg/dL (0.4-1.0); TOTAL PROTEIN 5.6 g/dL (6.7-8.2)
--- NOTE | 2018-01-26 16:33 | XRAY Report ---
Procedure Date: 01/26/2018 Accession Number: [id number] / [id number] Procedure: XR - Chest 2 View X-Ray CPT Code: 88533 FULL RESULT: EXAM: CHEST RADIOGRAPHY EXAM DATE: 01/26/2018 04:25 PM. CLINICAL HISTORY: None provided, right lung rhonchi. COMPARISON: None. TECHNIQUE: 2 views. FINDINGS: Lungs/Pleura: Patchy opacities throughout the right upper and lower lobes. Left lung is clear. There may be a trace right pleural effusion. No left pleural effusion. No pneumothorax. Normal volumes. Mediastinum: Prominent cardiomediastinal silhouette. Other: None. IMPRESSION: Opacities throughout the right lung suspicious for pneumonia. RADIA
--- NOTE | 2018-01-26 16:40 | CT Report ---
Procedure Date: 01/26/2018 Accession Number: [id number] / [id number] Procedure: CT - Head W/O CPT Code: FULL RESULT: EXAM: CT HEAD EXAM DATE: 01/26/2018 04:15 PM. CLINICAL HISTORY: Right sided weakness head injury headache. COMPARISON: 10/24/2017. TECHNIQUE: Multiaxial CT images were obtained from the foramen magnum to the vertex. Reformats: Coronal. IV contrast: None. In accordance with CT protocol optimization, one or more of the following dose reduction techniques were utilized for this exam: automated exposure control, adjustment of mA and/or KV based on patient size, or use of iterative reconstructive technique. FINDINGS: Parenchyma: No intraparenchymal hemorrhage. No evidence of mass, midline shift, or CT findings of infarction. Seymour-white differentiation is distinct. Extraaxial Spaces: Normal for age. No subdural or epidural collections identified. Ventricles: Normal in size and position. Sinuses and Orbits: Imaged paranasal sinuses, orbits, and mastoids show no significant abnormality. Bones: No evidence of fracture or calvarial defect. Other: None. IMPRESSION: No acute intracranial abnormality. RADIA
[2018-01-26] MEDS ORDERED: ONDANSETRON 4 MG/2 ML VIAL IVP STA (16:49)
[2018-01-26] MEDS ORDERED: HYDROmorphone 1 MG/ML CARPUJECT IVP STA (16:49)
[2018-01-26] MEDS ORDERED: ONDANSETRON 4 MG/2 ML VIAL IVP PRN (17:59)
[2018-01-26] MEDS ORDERED: SODIUM CHLORIDE FLUSH 0.9% 10 ML SYRINGE IVP PRN (17:59)
[2018-01-26] MEDS ORDERED: ACETAMINOPHEN 325 MG TABLET PO PRN (17:59)
[2018-01-26] MEDS ORDERED: cefTRIAXone 1 GM in SODIUM CHLORIDE 0.9% MINIBAG 100 ML IV SCH (18:00)
--- NOTE | 2018-01-26 18:12 | HISTORY & PHYSICAL EXAMINATION ---
Chief Complaint - Chief Complaint Chief Complaint: cough, and weakness History of Present Illness - Admitted From Admitted From:: ER - History Obtained From History obtained from: pt - History of Present Illness HPI Comment/Other: Ms. Pérez is a 77-year-old female with a past medical history significant for CVA, aneurysm of right internal carotid artery, hypertension, diabetes not currently on any medications, coronary artery disease status post stent, hyperlipidemia, colon cancer status post colon resection and history of hip fracture status post repair who presents to the emergency department with a chief complaint of fatigue low-grade fever and cough. Pt has many complaints. She state she had a difficult time pulling off her bed covers in the last night with her right arm. she continue to have slow and slurring speech since she has stroke 3 months ago. She report she had difficult to walk straightly and had balance issue, but she can not clarify what time she started to have. She continues to have some weakness in the right side which was similar to what she has had previously with her CVA on three months. Per Dr. Tyson's discharge summary, CT of the brain, CTA of the head and neck, and brain MRI have failed to show any acute injury. Today CT of head could not reveals acute findings. Pt also report she has bee cough for couple of months, and she took Lisinopril as her BP medication. But she report her cough became worse over the past week. She also report she had low degree fever for couple of days in the pas week. She also report she did not see her primary care doctor in follow-up since she was discharged from [facility] 3 months ago. CXR reveals opacities throughout the right lung suspicious for pneumonia. Pt has elevated WBC at 13.6. History - Past Medical History Cardiovascular: reports: Hypertension, High cholesterol, Coronary artery disease , [place] Respiratory: reports: COPD Neuro: reports: CVA, TIA Endocrine/Autoimmune: reports: Type 2 diabetes GI: reports: GERD, Chronic diarrhea, Other (Colon cancer status post resection) : reports: Incontinence HEENT: reports: None Psych: reports: Depression Musculoskeletal: reports: Rheumatoid arthritis, Osteoporosis Derm: reports: None - Past Surgical History General: reports: Cholecystectomy, Appendectomy, Bowel surgery Ortho: reports: Hip replacement /SETTER OFF: reports: Hysterectomy Cardiovascular: reports: Coronary stent - Family & Social History Family History: Mother: , Diabetes, Type 2, Father: , Cancer ( Father had stomach cancer and 2 brothers had mesothelioma), Brother: CAD, Cancer Family History Comment/Other: pt is living with her grandson in [place]. 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 Her Mother had a brain aneurysm. Her two brother was from cancer , one sister from stroke. She had 3 children. Living arrangement: At home Living Situation: With family Social History Notes: The patient is originally from near the [facility]. She has been living on [facility] for the last 10 years. Her daughter is a respiratory therapist at [employer] and she moved to be closer to her daughter. The patient had 3 daughters 1 of whom has in an unfortunate car accident and the other one has severe congestive heart failure. The patient has been twice and is now . She smoked 1 pack a day for 53 years quit in 2017. She denies any alcohol or drug use. - Substance History Use: Uses substance without health or social issues: NONE Abuse: Recurrent use of substance despite neg consequences: NONE - POLST Patient has POLST: No POLST Status: Full Code Meds/Allgy - Home Medications Home Medications: Ambulatory Orders Medication Instructions Recorded Confirmed Alprazolam [Xanax] 0.25 mg PO BID 09/18/13 01/26/18 Dexlansoprazole [Dexilant] 60 mg PO QDAC 09/18/13 01/26/18 HYDROcodone/ACET 10/325 [[place] 10 1 tab PO Q6H PRN 10/25/17 01/26/18 mg/325 mg] Lisinopril 20 mg PO BID 10/25/17 01/26/18 Metoclopramide [Reglan] 10 mg PO ACHS PRN 10/25/17 01/26/18 Metoprolol Succinate [Toprol Xl] 100 mg PO DAILY 10/25/17 01/26/18 amLODIPine [Norvasc] 5 mg PO DAILY 10/25/17 01/26/18 Atorvastatin [Lipitor] 80 mg PO QPM tablet 10/26/17 01/26/18 Cyanocobalamin (Vitamin B-12) 1,000 mcg IM Q3D 01/26/18 01/26/18 [Cyanocobalamin Injection] Hydralazine HCl 25 mg PO TID 01/26/18 01/26/18 Ibuprofen 200 mg PO Q6H PRN 01/26/18 01/26/18 Oxymetazoline HCl [Nasal [place]] 1 spray MOHINI PRN PRN 01/26/18 01/26/18 diphenhydrAMINE HCl 25 mg PO Q6H PRN 01/26/18 01/26/18 [Diphenhydramine HCl] - Allergies Allergies/Adverse Reactions: Allergies Allergy/AdvReac Type Severity Reaction Status Date / Time Penicillins Allergy Intermediate Rash Verified 01/26/18 17:15 diazepam [From Valium] AdvReac Intermediate "run up Verified 01/26/18 17:15 and down the melara" Review of Systems - Constitutional Constitutional: reports: Fever, Weakness. denies: Fatigue, Chills, Malaise, Poor appetite, Diaphoresis, Night sweats - Eyes Eyes: denies: Pain, Irritation, Amaurosis, Blurred vision, Spots in vision, Field loss, Vision loss, Dipolpia - Ears, Nose & Throat Ears, Nose & Throat: denies: Ear pain, Hearing loss, Hearing aids, Vertigo, Nasal pain, Nasal discharge, Nosebleeds, Nasal obstruction, Postnasal drainage, Sore throat, Mouth lesions, Bleeding gums, Dental decay - Cardiovascular Cariovascular: denies: Irregular heart rate, Palpitations, Chest pain, Edema, Lightheadedness, Syncope, Exertional dyspnea, Decr. exercise tolerance - Respiratory Respiratory: reports: Cough, Sputum production, SOB with exertion. denies: Wheezing, Snoring, Hemoptysis, Orthopnea, SOB at rest - Gastrointestinal Gastrointestinal: denies: Abdominal pain, Abdominal distention, Constipation, Diarrhea, Change in bowel habits, Rectal bleeding, Black stools, Bloody stools, Nausea, Vomiting, Bile emesis, Selvin blood emesis, Coffee grounds emesis, Reflux /heartburn, Bloating, Poor appetite - Genitourinary Genitourinary: denies: Dysuria, Frequency, Urgency, Hematuria, Incontinence, Flank pain, Nocturia, Urethral discharge - Musculoskeletal Musculoskeletal: denies: Muscle pain, Back pain, Muscle aches, Stiffness, Limited range of motion, Muscle weakness, Gout - Integumentary Integumentary: denies: Rash, Pruritis, Lesions, Dryness, Lumps, Acne, Pigment changes, Nail changes - Neurological Neurological: reports: Pre-existing deficit, Abnormal gait. denies: General weakness, Focal weakness, Headache, Dizziness, Numbness, Memory problems, Seizures, Incoordination, Slurred speech - Psychiatric Psychiatric: denies: Depression, Anxiety, Suicidal, Delusions, Hallucinations, Homicidal - Endocrine Endocrine: denies: Polyuria, Polydypsia, Polyphagia, Intolerance to cold - Hematologic/Lymphatic Hematologic/Lymphatic: denies: Anemia, Bruising, Petechiae, Blood clots, Lymphadenopathy, Bleeding tendencies Exam - Vital Signs Reviewed Vital Signs: Yes Vital Signs: Vital Signs x48h Temp Pulse Resp BP Pulse Ox 01/26/18 17:05 77 14 104/59 L 8 L 01/26/18 16:50 36.5 C 80 18 136/70 H 92 - Physical Exam General Appearance: positive: No acute distress, Alert. negative: Lethargic Eyes Bilateral: positive: Normal inspection, PERRL, No lid inflammation, Conjunctivae nml ENT: positive: ENT inspection nml, Pharynx nml, No signs of dehydration. negative: Purulent nasal drainage, Pharyngeal erythema, Oral lesions Neck: positive: Nml inspection, Thyroid nml, No JVD, Trachea midline. negative : Thyromegaly, Lymphadenopathy (R), Lymphadenopathy (L), Stiff neck, Carotid bruit, Swelling/bruising, Tracheal deviation Respiratory: positive: Chest non-tender, No respiratory distress. negative: Wheezes, Rales, Rhonchi Cardiovascular: positive: Regular rate & rhythm, No murmur, No gallop. negative : Irregularly irregular, Extrasystoles, Tachycardia, Bradycardia, JVD present, Systolic murmur, Diastolic murmur Peripheral Pulses: positive: 2+ Abdomen: positive: Non-tender, No organomegaly, Nml bowel sounds, No distention. negative: Tenderness, Guarding, Rebound Back: positive: Nml inspection. negative: CVA tenderness (R), CVA tenderness (L ) Skin: positive: Color nml, No rash, Warm, Dry. negative: Cyanosis, Diaphoresis , Pallor Extremities: positive: Non-tender, Full ROM, Nml appearance. negative: Calf tenderness, Joint swelling, Shine's sign/cords Neurologic/Psychiatric: positive: Oriented x3, Sensation nml, Mood/affect nml, Weakness. negative: Motor nml, Sensory loss, Facial droop, Slurred/abnml speech , Depressed mood/affect Conclusion/Plan - Problem List (1) Pneumonia Conclusion/Plan: pt report fever at home, cough, CXR indicate pneumonia, and elevated WBC. Pt report she had aspiration problem, and hx of aspiration pneumonia. treatment for aspiration pneumonia Rocephin Flagyl sputum culture, follow up blood culture, follow up (2) Right sided weakness Conclusion/Plan: pt has hx of right side weakness on October,, but interestly, MRI at that time did not indicate pt has acute stroke. No blood thinner in pt's home medication list, also at the same time pt has right Carotid aneurysm. It seems her right side weakness from her previous. PT/OT evaluation and treatment fall precaution, continue to support (3) Aneurysm of right internal carotid artery Conclusion/Plan: CTA from 10/2017 reveals right Aneurysm of right internal carotid artery BP control closely monitor (4) Acute kidney injury Conclusion/Plan: creatinine is 1.4 from previous 1. it seems pt has some dehydration hydration with IVF of NS lab monitor (5) HTN (hypertension) Conclusion/Plan: BP is stable, continue home BP meds vital monitor (6) DVT prophylaxis Conclusion/Plan: SCD and Lovenox (7) Full code status Conclusion/Plan: pt request full code - Lab Results Fish Bones: 01/27/18 05:25 01/27/18 05:25 Core Measures - Anticipated LOS I expect patient to be DC'd or transferred within 96 hours.: Yes - DVT/VTE - Prophylaxis VTE/DVT Device ordered at admit?: Yes VTE/DVT Prophylaxis med ordered at admit?: Yes
[2018-01-26 18:34] LABS: HB2 TOTAL 10.9 g/dL; HEMOGLOBIN A1C 0.38 g/dL; HEMOGLOBIN A1C % 5.3 % (4.6-6.2)
[2018-01-26] MEDS ORDERED: AZITHROMYCIN INJ 500 MG in SODIUM CHLORIDE 0.9% 250 ML IV SCH (19:00)
[2018-01-26] MEDS: SODIUM CHLORIDE 0.9% 1,000 ML IV SCH (19:03)
[2018-01-26] MEDS: CYANOCOBALAMIN 1,000 MCG/ML VIAL IM SCH (19:51)
[2018-01-26] MEDS: ALPRAZolam 0.25 MG TABLET PO SCH (21:31)
[2018-01-26] MEDS: hydrALAZINE 25 MG TABLET PO SCH (21:31)
[2018-01-26] MEDS: ATORVASTATIN 40 MG TABLET PO SCH (21:31)
[2018-01-26] MEDS: INSULIN ASPART 300 UNIT/3 ML PEN SUBQ SCH (21:34)
[2018-01-26] MEDS: HYDROcod/ACETAM 10 MG/325 MG TABLET PO PRN (22:44)
[2018-01-27 04:11] LABS: BILIRUBIN,URINE NEGATIVE (NEGATIVE); GLUCOSE, URINE (UA) NEGATIVE (NEGATIVE); KETONES,URINE (UA) NEGATIVE (NEGATIVE); LEUKOCYTE ESTERASE, URINE NEGATIVE (NEGATIVE); NITRITE,URINE NEGATIVE (NEGATIVE); OCCULT BLOOD,URINE NEGATIVE (NEGATIVE); PROTEIN,URINE NEGATIVE (NEGATIVE); UROBILINOGEN,URINE 0.2 (NORMAL) E.U./dL (NORMAL)
[2018-01-27 04:12] LABS: CLARITY,URINE CLEAR (CLEAR)
[2018-01-27] MEDS: SODIUM CHLORIDE 0.9% 1,000 ML IV SCH ×2 (04:20→17:14)
[2018-01-27 05:40] LABS: BASOPHILS % (AUTO) 0.2 %; EOSINOPHILS # (AUTO) 0.2 10^3/uL (0.0-0.7); EOSINOPHILS % (AUTO) 1.5 %; HGB - HEMOGLOBIN 8.9 g/dL (12.0-16.0); LYMPHOCYTES # (AUTO) 1.2 10^3/uL (1.5-3.5); LYMPHOCYTES % (AUTO) 8.4 %; MEAN CORPUSCULAR HEMOGLOBIN 29.7 pg (27.0-31.0); MEAN CORPUSCULAR HGB CONC 31.5 g/dL (32.0-36.0); MEAN CORPUSCULAR VOLUME 94.1 fL (81.0-99.0); MEAN PLATELET VOLUME 7.3 fL (7.9-10.8); MONOCYTES # (AUTO) 0.9 10^3/uL (0.0-1.0); MONOCYTES % (AUTO) 6.3 %; NEUTROPHILS # (AUTO) 12.2 10^3/uL (1.5-6.6); NEUTROPHILS % (AUTO) 83.6 %; PLT - PLATELET COUNT 267 10^3/uL (130-450); RED BLOOD COUNT 2.99 10^6/uL (4.20-5.40); RED CELL DISTRIBUTION WIDTH 14.6 % (12.0-15.0); WHITE BLOOD COUNT 14.6 x10^3/uL (4.8-10.8)
[2018-01-27 05:51] LABS: ALBUMIN 2.2 g/dL (3.2-5.5); ALBUMIN/GLOBULIN RATIO 0.8 (1.0-2.2); BILIRUBIN,TOTAL 0.4 mg/dL (0.2-1.0); CALCIUM 8.3 mg/dL (8.5-10.3); MAGNESIUM 1.4 mg/dL (1.7-2.8); TOTAL PROTEIN 4.8 g/dL (6.7-8.2)
[2018-01-27] MEDS: SODIUM CHLORIDE FLUSH 0.9% 10 ML SYRINGE IVP SCH ×3 (06:33→17:14)
[2018-01-27] MEDS: hydrALAZINE 25 MG TABLET PO SCH ×3 (06:49→21:37)
[2018-01-27] MEDS: HYDROcod/ACETAM 10 MG/325 MG TABLET PO PRN ×3 (06:53→21:37)
[2018-01-27] MEDS ORDERED: MAGNESIUM SULFATE 1 GM in SODIUM CHLORIDE 0.9% 50 ML IV ONE ×2 (07:38→08:00)
[2018-01-27] MEDS: INSULIN ASPART 300 UNIT/3 ML PEN SUBQ SCH ×4 (08:26→21:36)
[2018-01-27] MEDS ORDERED: cefTRIAXone 1 GM VIAL IVP SCH ×2 (09:00→10:39)
[2018-01-27] MEDS: amLODIPine 5 MG TABLET PO SCH (09:11)
[2018-01-27] MEDS: METOPROLOL SUCCINATE 50 MG TABLET PO SCH (09:11)
[2018-01-27] MEDS: FAMOTIDINE 20 MG TABLET PO SCH (09:11)
[2018-01-27] MEDS: ALPRAZolam 0.25 MG TABLET PO SCH ×2 (09:11→21:37)
[2018-01-27] MEDS: POLYETHYLENE GLYCOL 3350 17 GM PACKET PO SCH (09:13)
[2018-01-27] MEDS: ENOXAPARIN 40 MG/0.4 ML SYRINGE SUBQ SCH (09:13)
[2018-01-27] MEDS: metroNIDAZOLE 500 MG/100 ML 250 MG/50 ML BAG IV SCH ×2 (11:28→19:33)
[2018-01-27] MEDS: cefTRIAXone 1 GM in SODIUM CHLORIDE 0.9% MINIBAG 100 ML IV SCH (12:49)
[2018-01-27 15:32] LABS: % IRON SATURATION 3 % (20-50); IRON 7 ug/dL (28-170); TOTAL IRON BINDING CAPACITY 237 ug/dL (250-450); TRANSFERRIN 169 mg/dL (192-382)
[2018-01-27 15:41] LABS: MEAN RETIC VALUE 104.1; RED BLOOD COUNT 3.15 10^6/uL (4.20-5.40)
[2018-01-27 15:49] LABS: FERRITIN 55.9 ng/mL (11.0-306.8)
[2018-01-27] MEDS ORDERED: cefTRIAXone 1 GM in SODIUM CHLORIDE 0.9% MINIBAG 100 ML IV SCH (17:00)
[2018-01-27] MEDS ORDERED: HYDROmorphone 0.5 MG/0.5 ML SYRINGE IVP SCH (17:00)
--- NOTE | 2018-01-27 17:32 | PROVIDER PROGRESS NOTE ---
Subjective - Prog Note Date Prog Note Date: 01/27/18 - Subjective Pt reports feeling: Improved Subjective: pt report she has hx of aspiration pneumonia, and inpt in [facility] for the problem. consult with [facility] for evaluation and treatment. Pt felt better breath, and reduced cough as well. no fever, chill, CP. Current Medications - Current Medications Current Medications: Active Medications Acetaminophen (Tylenol) 650 mg PO Q4HR PRN PRN Reason: Pain 1 to 4 Last Admin: 01/26/18 21:38 Dose: 650 mg Hydrocodone Bitart/Acetaminophen ([place] 10 Mg/325 Mg) 1 tab PO Q4H PRN PRN Reason: PAIN Alprazolam (Xanax) 0.25 mg PO BID [facility] Last Admin: 01/27/18 09:11 Dose: 0.25 mg Amlodipine Besylate (Norvasc) 5 mg PO DAILY [facility] Last Admin: 01/27/18 09:11 Dose: 5 mg Atorvastatin Calcium (Lipitor) 80 mg PO QPM [facility] Last Admin: 01/26/18 21:31 Dose: 80 mg Cyanocobalamin (Vitamin B-12) 1,000 mcg IM Q3D [facility] Last Admin: 01/26/18 19:51 Dose: 1,000 mcg Enoxaparin Sodium (Lovenox) 40 mg SUBQ DAILY [facility] Last Admin: 01/27/18 09:13 Dose: 40 mg Famotidine (Pepcid) 20 mg PO DAILY [facility] Last Admin: 01/27/18 09:11 Dose: 20 mg Hydralazine HCl (Apresoline) 25 mg PO TID [facility] Last Admin: 01/27/18 14:03 Dose: 25 mg Hydromorphone HCl (Dilaudid Inj Syringe) 0.5 mg IVP ONCE [facility] Stop: 01/27/18 18:00 Last Admin: 01/27/18 17:14 Dose: 0.5 mg Sodium Chloride (Normal Saline 0.9%) 1,000 mls @ 85 mls/hr IV .[id number] [facility] Last Admin: 01/27/18 17:14 Dose: 85 mls/hr Metronidazole (Flagyl 500 Mg/100 Ml) 250 mg in 50 mls @ 100 mls/hr IV Q8H [facility] Last Infusion: 01/27/18 12:28 Dose: Infused Ceftriaxone Sodium 1 gm/ (Sodium Chloride) 100 mls @ 200 mls/hr IV Q24H [facility] Last Infusion: 01/27/18 13:23 Dose: Infused Insulin Aspart (Novolog) 1 - 5 unit SUBQ 0800,1200,1700,2100 [facility] PRN Reason: Protocol Last Admin: 01/27/18 16:39 Dose: Not Given Lisinopril (Zestril) 20 mg PO BID [facility] Metoprolol Succinate (Toprol Xl) 100 mg PO DAILY [facility] Last Admin: 01/27/18 09:11 Dose: 100 mg Ondansetron HCl (Zofran Inj) 4 mg IVP Q6HR PRN PRN Reason: Nausea / Vomiting Oxymetazoline HCl (Afrin) 1 sprays MOHINI Q12H PRN PRN Reason: CONGESTION Polyethylene Glycol (Miralax) 17 gm PO DAILY [facility] Last Admin: 01/27/18 09:13 Dose: Not Given Sodium Chloride (Normal Saline Flush 0.9%) 10 ml IVP PRN PRN PRN Reason: NEEDED PER PROVIDER ORDERS Sodium Chloride (Normal Saline Flush 0.9%) 10 ml IVP 0100,0900,1700 [facility] Last Admin: 01/27/18 17:14 Dose: 10 ml Alprazolam [Xanax] 0.25 mg PO BID 09/18/13 Dexlansoprazole [Dexilant] 60 mg PO QDAC 09/18/13 HYDROcodone/ACET 10/325 [[place] 10 mg/325 mg] 1 tab PO Q6H PRN 10/25/17 Lisinopril 20 mg PO BID 10/25/17 Metoclopramide [Reglan] 10 mg PO ACHS PRN 10/25/17 Metoprolol Succinate [Toprol Xl] 100 mg PO DAILY 10/25/17 amLODIPine [Norvasc] 5 mg PO DAILY 10/25/17 Cyanocobalamin (Vitamin B-12) [Cyanocobalamin Injection] 1,000 mcg IM Q3D Hydralazine HCl 25 mg PO TID 01/26/18 Ibuprofen 200 mg PO Q6H PRN 01/26/18 Oxymetazoline HCl [Nasal Elfrida] 1 spray MOHINI PRN PRN 01/26/18 diphenhydrAMINE HCl [Diphenhydramine HCl] 25 mg PO Q6H PRN 01/26/18 Objective - Vital Signs/Intake & Output Reviewed Vital Signs: Yes Vital Signs: Vital Signs x48h Temp Pulse Pulse Resp BP BP Pulse Ox 01/27/18 15:39 37.4 C 83 20 155/71 H 95 01/27/18 14:30 86 135/68 H 01/27/18 12:42 37.1 C 80 20 148/69 H 97 Intake & Output: Intake & Output 01/24/18 01/25/18 01/26/18 01/27/18 23:59 23:59 23:59 23:59 Intake Total 9174.327 7452.5 Output Total 400 2525 Balance 614.167 555.5 - Objective General Appearance: positive: No acute distress, Alert. negative: Lethargic Eyes Bilateral: positive: Normal inspection, PERRL, No lid inflammation, Conjunctivae nml ENT: positive: ENT inspection nml, Pharynx nml, No signs of dehydration. negative: Purulent nasal drainage, Pharyngeal erythema, Oral lesions Neck: positive: Nml inspection, Thyroid nml, No JVD, Trachea midline. negative : Thyromegaly, Lymphadenopathy (R), Lymphadenopathy (L), Stiff neck, Carotid bruit, Swelling/bruising, Tracheal deviation Respiratory: positive: Chest non-tender, No respiratory distress. negative: Wheezes, Rales, Rhonchi Cardiovascular: positive: Regular rate & rhythm, No murmur, No gallop. negative : Irregularly irregular, Extrasystoles, Tachycardia, Bradycardia, JVD present, Systolic murmur, Diastolic murmur Peripheral Pulses: 2+ Radial (R), 2+ Radial (L), 2+ Dorsalis pedis (R), 2+ Dorsalis pedis (L) Abdomen: positive: Non-tender, No organomegaly, Nml bowel sounds, No distention. negative: Tenderness, Guarding, Rebound Back: positive: Nml inspection. negative: CVA tenderness (R), CVA tenderness (L ) Skin: positive: Color nml, No rash, Warm, Dry. negative: Cyanosis, Diaphoresis , Pallor Extremities: positive: Non-tender, Nml appearance. negative: Calf tenderness, Joint swelling, Shine's sign/cords Neurologic/Psychiatric: positive: Oriented x3, Sensation nml. negative: Weakness, Sensory loss, Facial droop, Slurred/abnml speech, Depressed mood/ affect - Lab Results Fish Bones: 01/27/18 05:25 01/27/18 05:25 Other Labs: Lab Results x24hrs 01/27/18 01/27/18 01/27/18 Range/Units 16:30 15:07 15:07 WBC (4.8-10.8) x10^3/uL RBC (4.20-5.40) 10^6/uL Hgb (12.0-16.0) g/dL Hct (37.0-47.0) % MCV (81.0-99.0) fL MCH (27.0-31.0) pg MCHC (32.0-36.0) g/dL RDW (12.0-15.0) % Plt Count (130-450) 10^3/uL MPV (7.9-10.8) fL Reticulocyte % (Auto) (0.5-2.3) % Neut # (Auto) (1.5-6.6) 10^3/uL Lymph # (Auto) (1.5-3.5) 10^3/uL Frio # (Auto) (0.0-1.0) 10^3/uL Eos # (Auto) (0.0-0.7) 10^3/uL Baso # (Auto) (0.0-0.1) 10^3/uL Absolute Nucleated RBC x10^3/uL Nucleated RBC % /100WBC Absolute Retic (0.020-0.110) 10^6/uL Sodium (135-145) mmol/L Potassium (3.5-5.0) mmol/L Chloride (101-111) mmol/L Carbon Dioxide (21-32) mmol/L Anion Gap (6-13) BUN (6-20) mg/dL Creatinine (0.4-1.0) mg/dL Estimated GFR (MDRD) (>89) Glucose (70-100) mg/dL POC Whole Bld Glucose 108 H (70 - 100) mg/dL Calcium (8.5-10.3) mg/dL Magnesium (1.7-2.8) mg/dL Iron (28-170) ug/dL TIBC (250-450) ug/dL % Saturation (20-50) % Transferrin (192-382) mg/dL Ferritin 55.9 (11.0-306.8) ng/mL Total Bilirubin (0.2-1.0) mg/dL AST (10-42) IU/L ALT (10-60) IU/L Alkaline Phosphatase (42-121) IU/L Lactate Dehydrogenase 97 (91-225) IU/L Total Protein (6.7-8.2) g/dL Albumin (3.2-5.5) g/dL Globulin (2.1-4.2) g/dL Albumin/Globulin Ratio (1.0-2.2) Vitamin B12 5379 H (180-914) pg/mL Urine Color Urine Clarity (CLEAR) Urine pH (5.0-7.5) PH Ur Specific [place] (1.002-1.030) Urine Protein (NEGATIVE) mg/dL Urine Glucose (UA) (NEGATIVE) mg/dL Urine Ketones (NEGATIVE) mg/dL Urine Occult Blood (NEGATIVE) Urine Nitrite (NEGATIVE) Urine Bilirubin (NEGATIVE) Urine Urobilinogen (NORMAL) E.U./dL Ur Leukocyte Esterase (NEGATIVE) Ur Microscopic Review Urine Culture Comments 01/27/18 01/27/18 01/27/18 Range/Units 15:07 15:07 11:08 WBC (4.8-10.8) x10^3/uL RBC 3.15 L (4.20-5.40) 10^6/uL Hgb (12.0-16.0) g/dL Hct (37.0-47.0) % MCV (81.0-99.0) fL MCH (27.0-31.0) pg MCHC (32.0-36.0) g/dL RDW (12.0-15.0) % Plt Count (130-450) 10^3/uL MPV (7.9-10.8) fL Reticulocyte % (Auto) 0.97 (0.5-2.3) % Neut # (Auto) (1.5-6.6) 10^3/uL Lymph # (Auto) (1.5-3.5) 10^3/uL Frio # (Auto) (0.0-1.0) 10^3/uL Eos # (Auto) (0.0-0.7) 10^3/uL Baso # (Auto) (0.0-0.1) 10^3/uL Absolute Nucleated RBC x10^3/uL Nucleated RBC % /100WBC Absolute Retic 0.031 (0.020-0.110) 10^6/uL Sodium (135-145) mmol/L Potassium (3.5-5.0) mmol/L Chloride (101-111) mmol/L Carbon Dioxide (21-32) mmol/L Anion Gap (6-13) BUN (6-20) mg/dL Creatinine (0.4-1.0) mg/dL Estimated GFR (MDRD) (>89) Glucose (70-100) mg/dL POC Whole Bld Glucose 103 H (70 - 100) mg/dL Calcium (8.5-10.3) mg/dL Magnesium (1.7-2.8) mg/dL Iron 7 L (28-170) ug/dL TIBC 237 L (250-450) ug/dL % Saturation 3 L (20-50) % Transferrin 169 L (192-382) mg/dL Ferritin (11.0-306.8) ng/mL Total Bilirubin (0.2-1.0) mg/dL AST (10-42) IU/L ALT (10-60) IU/L Alkaline Phosphatase (42-121) IU/L Lactate Dehydrogenase (91-225) IU/L Total Protein (6.7-8.2) g/dL Albumin (3.2-5.5) g/dL Globulin (2.1-4.2) g/dL Albumin/Globulin Ratio (1.0-2.2) Vitamin B12 (180-914) pg/mL Urine Color Urine Clarity (CLEAR) Urine pH (5.0-7.5) PH Ur Specific [place] (1.002-1.030) Urine Protein (NEGATIVE) mg/dL Urine Glucose (UA) (NEGATIVE) mg/dL Urine Ketones (NEGATIVE) mg/dL Urine Occult Blood (NEGATIVE) Urine Nitrite (NEGATIVE) Urine Bilirubin (NEGATIVE) Urine Urobilinogen (NORMAL) E.U./dL Ur Leukocyte Esterase (NEGATIVE) Ur Microscopic Review Urine Culture Comments 01/27/18 01/27/18 01/27/18 Range/Units 07:17 05:25 05:25 WBC 14.6 H (4.8-10.8) x10^3/uL RBC 2.99 L (4.20-5.40) 10^6/uL Hgb 8.9 L (12.0-16.0) g/dL Hct 28.2 L (37.0-47.0) % MCV 94.1 (81.0-99.0) fL MCH 29.7 (27.0-31.0) pg MCHC 31.5 L (32.0-36.0) g/dL RDW 14.6 (12.0-15.0) % Plt Count 267 (130-450) 10^3/uL MPV 7.3 L (7.9-10.8) fL Reticulocyte % (Auto) (0.5-2.3) % Neut # (Auto) 12.2 H (1.5-6.6) 10^3/uL Lymph # (Auto) 1.2 L (1.5-3.5) 10^3/uL Frio # (Auto) 0.9 (0.0-1.0) 10^3/uL Eos # (Auto) 0.2 (0.0-0.7) 10^3/uL Baso # (Auto) 0.0 (0.0-0.1) 10^3/uL Absolute Nucleated RBC 0.00 x10^3/uL Nucleated RBC % 0.0 /100WBC Absolute Retic (0.020-0.110) 10^6/uL Sodium 137 (135-145) mmol/L Potassium 3.7 (3.5-5.0) mmol/L Chloride 114 H (101-111) mmol/L Carbon Dioxide 19 L (21-32) mmol/L Anion Gap 4.0 L (6-13) BUN 28 H (6-20) mg/dL Creatinine 1.0 (0.4-1.0) mg/dL Estimated GFR (MDRD) 54 L (>89) Glucose 79 (70-100) mg/dL POC Whole Bld Glucose 76 (70 - 100) mg/dL Calcium 8.3 L (8.5-10.3) mg/dL Magnesium 1.4 L (1.7-2.8) mg/dL Iron (28-170) ug/dL TIBC (250-450) ug/dL % Saturation (20-50) % Transferrin (192-382) mg/dL Ferritin (11.0-306.8) ng/mL Total Bilirubin 0.4 (0.2-1.0) mg/dL AST 12 (10-42) IU/L ALT 11 (10-60) IU/L Alkaline Phosphatase 88 (42-121) IU/L Lactate Dehydrogenase (91-225) IU/L Total Protein 4.8 L (6.7-8.2) g/dL Albumin 2.2 L (3.2-5.5) g/dL Globulin 2.6 (2.1-4.2) g/dL Albumin/Globulin Ratio 0.8 L (1.0-2.2) Vitamin B12 (180-914) pg/mL Urine Color Urine Clarity (CLEAR) Urine pH (5.0-7.5) PH Ur Specific [place] (1.002-1.030) Urine Protein (NEGATIVE) mg/dL Urine Glucose (UA) (NEGATIVE) mg/dL Urine Ketones (NEGATIVE) mg/dL Urine Occult Blood (NEGATIVE) Urine Nitrite (NEGATIVE) Urine Bilirubin (NEGATIVE) Urine Urobilinogen (NORMAL) E.U./dL Ur Leukocyte Esterase (NEGATIVE) Ur Microscopic Review Urine Culture Comments 01/27/18 01/26/18 Range/Units 04:00 20:34 WBC (4.8-10.8) x10^3/uL RBC (4.20-5.40) 10^6/uL Hgb (12.0-16.0) g/dL Hct (37.0-47.0) % MCV (81.0-99.0) fL MCH (27.0-31.0) pg MCHC (32.0-36.0) g/dL RDW (12.0-15.0) % Plt Count (130-450) 10^3/uL MPV (7.9-10.8) fL Reticulocyte % (Auto) (0.5-2.3) % Neut # (Auto) (1.5-6.6) 10^3/uL Lymph # (Auto) (1.5-3.5) 10^3/uL Frio # (Auto) (0.0-1.0) 10^3/uL Eos # (Auto) (0.0-0.7) 10^3/uL Baso # (Auto) (0.0-0.1) 10^3/uL Absolute Nucleated RBC x10^3/uL Nucleated RBC % /100WBC Absolute Retic (0.020-0.110) 10^6/uL Sodium (135-145) mmol/L Potassium (3.5-5.0) mmol/L Chloride (101-111) mmol/L Carbon Dioxide (21-32) mmol/L Anion Gap (6-13) BUN (6-20) mg/dL Creatinine (0.4-1.0) mg/dL Estimated GFR (MDRD) (>89) Glucose (70-100) mg/dL POC Whole Bld Glucose 121 H (70 - 100) mg/dL Calcium (8.5-10.3) mg/dL Magnesium (1.7-2.8) mg/dL Iron (28-170) ug/dL TIBC (250-450) ug/dL % Saturation (20-50) % Transferrin (192-382) mg/dL Ferritin (11.0-306.8) ng/mL Total Bilirubin (0.2-1.0) mg/dL AST (10-42) IU/L ALT (10-60) IU/L Alkaline Phosphatase (42-121) IU/L Lactate Dehydrogenase (91-225) IU/L Total Protein (6.7-8.2) g/dL Albumin (3.2-5.5) g/dL Globulin (2.1-4.2) g/dL Albumin/Globulin Ratio (1.0-2.2) Vitamin B12 (180-914) pg/mL Urine Color YELLOW Urine Clarity CLEAR (CLEAR) Urine pH 6.0 (5.0-7.5) PH Ur Specific [place] <=1.005 (1.002-1.030) Urine Protein NEGATIVE (NEGATIVE) mg/dL Urine Glucose (UA) NEGATIVE (NEGATIVE) mg/dL Urine Ketones NEGATIVE (NEGATIVE) mg/dL Urine Occult Blood NEGATIVE (NEGATIVE) Urine Nitrite NEGATIVE (NEGATIVE) Urine Bilirubin NEGATIVE (NEGATIVE) Urine Urobilinogen 0.2 (NORMAL) (NORMAL) E.U./dL Ur Leukocyte Esterase NEGATIVE (NEGATIVE) Ur Microscopic Review NOT INDICATED Urine Culture Comments NOT INDICATED ABX Reporting Has patient been on IV antibiotics over the past 48 hours?: Yes Assessment/Plan - Problem List (1) Pneumonia Impression: (1) Pneumonia Conclusion/Plan: 01/27 95% sats on room air, pt feel breath is better. but WBC is slight up pt seems aspiration pneumonia, switch to Rocephin and Flagyl. pt report fever at home, cough, CXR indicate pneumonia, and elevated WBC. Pt report she had aspiration problem, and hx of aspiration pneumonia. treatment for aspiration pneumonia Rocephin Flagyl sputum culture, follow up blood culture, follow up (2) Right sided weakness Conclusion/Plan: 01/27, continue PT/OT pt has hx of right side weakness on October,, but interestly, MRI at that time did not indicate pt has acute stroke. No blood thinner in pt's home medication list, also at the same time pt has right Carotid aneurysm. It seems her right side weakness from her previous. 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 it seems pt has some dehydration hydration with IVF of NS lab monitor (5) HTN (hypertension) Conclusion/Plan: BP is stable, continue home BP meds vital monitor
[2018-01-27] MEDS: ATORVASTATIN 40 MG TABLET PO SCH (21:37)
[2018-01-27] MEDS: LISINOPRIL 20 MG TABLET PO SCH (21:37)
[2018-01-27] MEDS: OXYMETAZOLINE NASAL SPRAY NAS PRN (22:49)
[2018-01-28] MEDS: SODIUM CHLORIDE FLUSH 0.9% 10 ML SYRINGE IVP SCH ×3 (01:09→19:13)
[2018-01-28] MEDS: HYDROcod/ACETAM 10 MG/325 MG TABLET PO PRN ×3 (01:52→16:06)
[2018-01-28] MEDS ORDERED: diphenhydrAMINE 25 MG CAPSULE PO PRN (01:56)
[2018-01-28] MEDS: metroNIDAZOLE 500 MG/100 ML 250 MG/50 ML BAG IV SCH ×3 (03:00→19:15)
[2018-01-28 05:28] LABS: LYMPHOCYTES # (AUTO) 1.1 10^3/uL (1.5-3.5); MONOCYTES # (AUTO) 0.7 10^3/uL (0.0-1.0)
[2018-01-28 05:43] LABS: ALBUMIN 2.3 g/dL (3.2-5.5); ALKALINE PHOSPHATASE 86 IU/L (42-121); ALT ALANINE AMINOTRANSFERASE < 10 IU/L (10-60); AST ASPARTATE AMINOTRANSFERASE 10 IU/L (10-42); BASOPHILS % (AUTO) 0.2 %; BILIRUBIN,TOTAL 0.3 mg/dL (0.2-1.0); BUN - BLOOD UREA NITROGEN 16 mg/dL (6-20); CALCIUM 8.7 mg/dL (8.5-10.3); CARBON DIOXIDE - CO2 21 mmol/L (21-32); CHLORIDE 113 mmol/L (101-111); CREATININE 0.9 mg/dL (0.4-1.0); EOSINOPHILS # (AUTO) 0.2 10^3/uL (0.0-0.7); EOSINOPHILS % (AUTO) 1.4 %; GFR - MDRD 61 (>89); GLUCOSE 134 mg/dL (70-100); HGB - HEMOGLOBIN 8.3 g/dL (12.0-16.0); LYMPHOCYTES % (AUTO) 9.4 %; MEAN CORPUSCULAR HEMOGLOBIN 29.6 pg (27.0-31.0); MEAN CORPUSCULAR HGB CONC 32.3 g/dL (32.0-36.0); MEAN CORPUSCULAR VOLUME 91.8 fL (81.0-99.0); MEAN PLATELET VOLUME 7.5 fL (7.9-10.8); MONOCYTES % (AUTO) 6.1 %; NEUTROPHILS # (AUTO) 9.3 10^3/uL (1.5-6.6); NEUTROPHILS % (AUTO) 82.9 %; PLT - PLATELET COUNT 299 10^3/uL (130-450); RED CELL DISTRIBUTION WIDTH 14.7 % (12.0-15.0); SODIUM 139 mmol/L (135-145); TOTAL PROTEIN 4.7 g/dL (6.7-8.2); WHITE BLOOD COUNT 11.2 x10^3/uL (4.8-10.8)
[2018-01-28] MEDS: IPRATROPIUM/ALBUTEROL 3 ML NEB INH PRN (05:53)
[2018-01-28] MEDS: SODIUM CHLORIDE 0.9% 1,000 ML IV SCH (06:00)
[2018-01-28] MEDS: hydrALAZINE 25 MG TABLET PO SCH ×3 (06:00→21:00)
[2018-01-28] MEDS ORDERED: FERRIC GLUCONATE 62.5 MG/5 ML VIAL IVP ONE (07:45)
[2018-01-28] MEDS ORDERED: FERRIC GLUCONATE 125 MG in SODIUM CHLORIDE 0.9% 100ML 100 ML IV ONE (09:00)
[2018-01-28] MEDS: FAMOTIDINE 20 MG TABLET PO SCH (09:24)
[2018-01-28] MEDS: METOPROLOL SUCCINATE 50 MG TABLET PO SCH (09:24)
[2018-01-28] MEDS: ALPRAZolam 0.25 MG TABLET PO SCH ×2 (09:24→21:00)
[2018-01-28] MEDS: guaiFENesin 600 MG TABLET PO SCH ×2 (09:24→21:00)
[2018-01-28] MEDS: LISINOPRIL 20 MG TABLET PO SCH (09:25)
[2018-01-28] MEDS: amLODIPine 5 MG TABLET PO SCH (09:25)
[2018-01-28] MEDS: POLYETHYLENE GLYCOL 3350 17 GM PACKET PO SCH (09:26)
[2018-01-28] MEDS: ENOXAPARIN 40 MG/0.4 ML SYRINGE SUBQ SCH (09:29)
[2018-01-28] MEDS: OXYMETAZOLINE NASAL SPRAY NAS PRN (10:30)
[2018-01-28] MEDS ORDERED: HYDROmorphone 2 MG/ML VIAL IVP SCH (11:00)
[2018-01-28] MEDS: cefTRIAXone 1 GM in SODIUM CHLORIDE 0.9% MINIBAG 100 ML IV SCH (12:31)
--- NOTE | 2018-01-28 13:39 | PROVIDER PROGRESS NOTE ---
Subjective - Subjective Pt reports feeling: Improved Subjective: pt report she feel breath better but still has some cough. No fever, chill, chest pain. Current Medications - Current Medications Current Medications: Active Medications Acetaminophen (Tylenol) 650 mg PO Q4HR PRN PRN Reason: Pain 1 to 4 Last Admin: 01/26/18 21:38 Dose: 650 mg Hydrocodone Bitart/Acetaminophen ([place] 10 Mg/325 Mg) 1 tab PO Q4H PRN PRN Reason: PAIN Last Admin: 01/28/18 09:24 Dose: 1 tab Albuterol/Ipratropium (Duoneb) 3 ml INH Q4HR PRN PRN Reason: Wheezing Last Admin: 01/28/18 05:53 Dose: 3 ml Alprazolam (Xanax) 0.25 mg PO BID [facility] Last Admin: 01/28/18 09:24 Dose: 0.25 mg Amlodipine Besylate (Norvasc) 5 mg PO DAILY [facility] Last Admin: 01/28/18 09:25 Dose: 5 mg Atorvastatin Calcium (Lipitor) 80 mg PO QPM ANA Last Admin: 01/27/18 21:37 Dose: 80 mg Cyanocobalamin (Vitamin B-12) 1,000 mcg IM Q3D [facility] Last Admin: 01/26/18 19:51 Dose: 1,000 mcg Diphenhydramine HCl (Benadryl) 25 mg PO Q6HR PRN PRN Reason: Allergy Symptoms Last Admin: 01/28/18 03:00 Dose: 25 mg Enoxaparin Sodium (Lovenox) 40 mg SUBQ DAILY [facility] Last Admin: 01/28/18 09:29 Dose: 40 mg Famotidine (Pepcid) 20 mg PO DAILY ANA Last Admin: 01/28/18 09:24 Dose: 20 mg Guaifenesin (Mucinex) 600 mg PO BID [facility] Last Admin: 01/28/18 09:24 Dose: 600 mg Hydralazine HCl (Apresoline) 25 mg PO TID ANA Last Admin: 01/28/18 06:00 Dose: 25 mg Metronidazole (Flagyl 500 Mg/100 Ml) 250 mg in 50 mls @ 100 mls/hr IV Q8H [facility] Last Infusion: 01/28/18 12:30 Dose: Infused Ceftriaxone Sodium 1 gm/ (Sodium Chloride) 100 mls @ 200 mls/hr IV Q24H [facility] Last Admin: 01/28/18 12:31 Dose: 200 mls/hr Lisinopril (Zestril) 20 mg PO BID [facility] Last Admin: 01/28/18 09:25 Dose: 20 mg Metoprolol Succinate (Toprol Xl) 100 mg PO DAILY [facility] Last Admin: 01/28/18 09:24 Dose: 100 mg Ondansetron HCl (Zofran Inj) 4 mg IVP Q6HR PRN PRN Reason: Nausea / Vomiting Oxymetazoline HCl (Afrin) 1 sprays MOHINI Q12H PRN PRN Reason: CONGESTION Last Admin: 01/28/18 10:30 Dose: 1 spr Polyethylene Glycol (Miralax) 17 gm PO DAILY [facility] Last Admin: 01/28/18 09:26 Dose: Not Given Sodium Chloride (Normal Saline Flush 0.9%) 10 ml IVP PRN PRN PRN Reason: NEEDED PER PROVIDER ORDERS Sodium Chloride (Normal Saline Flush 0.9%) 10 ml IVP 0100,0900,1700 [facility] Last Admin: 01/28/18 11:09 Dose: 10 ml Alprazolam [Xanax] 0.25 mg PO BID 09/18/13 Dexlansoprazole [Dexilant] 60 mg PO QDAC 09/18/13 HYDROcodone/ACET 10/325 [[place] 10 mg/325 mg] 1 tab PO Q6H PRN 10/25/17 Lisinopril 20 mg PO BID 10/25/17 Metoclopramide [Reglan] 10 mg PO ACHS PRN 10/25/17 Metoprolol Succinate [Toprol Xl] 100 mg PO DAILY 10/25/17 amLODIPine [Norvasc] 5 mg PO DAILY 10/25/17 Cyanocobalamin (Vitamin B-12) [Cyanocobalamin Injection] 1,000 mcg IM Q3D Hydralazine HCl 25 mg PO TID 01/26/18 Ibuprofen 200 mg PO Q6H PRN 01/26/18 Oxymetazoline HCl [Nasal [place]] 1 spray MOHINI PRN PRN 01/26/18 diphenhydrAMINE HCl [Diphenhydramine HCl] 25 mg PO Q6H PRN 01/26/18 Objective - Vital Signs/Intake & Output Reviewed Vital Signs: Yes Vital Signs: Vital Signs x48h Temp Pulse Pulse Resp BP Pulse Ox 01/28/18 09:17 37.3 C 01/28/18 08:00 37.5 C 83 18 145/58 H 96 01/28/18 05:55 73 12 Intake & Output: Intake & Output 01/25/18 01/26/18 01/27/18 01/28/18 23:59 23:59 23:59 23:59 Intake Total 1454.556 8155.5 2180.000 Output Total 400 3225 1800 Balance 614.167 205.5 380 - Objective General Appearance: positive: No acute distress, Alert. negative: Lethargic Eyes Bilateral: positive: Normal inspection, PERRL, No lid inflammation, Conjunctivae nml ENT: positive: ENT inspection nml, Pharynx nml, No signs of dehydration. negative: Purulent nasal drainage, Pharyngeal erythema, Oral lesions Neck: positive: Nml inspection, Thyroid nml, No JVD, Trachea midline. negative : Thyromegaly, Lymphadenopathy (R), Lymphadenopathy (L), Stiff neck, Carotid bruit, Swelling/bruising, Tracheal deviation Respiratory: positive: Chest non-tender, No respiratory distress, Wheezes, Rales , Other (reduced lung sound bilaterally) Cardiovascular: positive: Regular rate & rhythm, No murmur, No gallop. negative : Irregularly irregular, Extrasystoles, Tachycardia, Bradycardia, JVD present, Systolic murmur, Diastolic murmur Peripheral Pulses: 2+ Radial (R), 2+ Radial (L), 2+ Dorsalis pedis (R), 2+ Dorsalis pedis (L) Abdomen: positive: Non-tender, No organomegaly, Nml bowel sounds, No distention. negative: Tenderness, Guarding, Rebound Back: positive: Nml inspection. negative: CVA tenderness (R), CVA tenderness (L ) Skin: positive: Color nml, No rash, Warm, Dry. negative: Cyanosis, Diaphoresis , Pallor Extremities: positive: Non-tender, Full ROM, Nml appearance. negative: Calf tenderness, Joint swelling, Shine's sign/cords Neurologic/Psychiatric: positive: Oriented x3, Motor nml, Sensation nml, Mood/ affect nml. negative: Weakness, Sensory loss, Facial droop, Slurred/abnml speech, Depressed mood/affect - Lab Results Fish Bones: 01/28/18 05:15 01/28/18 05:15 Other Labs: Lab Results x24hrs 01/28/18 01/28/18 01/28/18 Range/Units 07:46 05:15 05:15 WBC 11.2 H (4.8-10.8) x10^3/uL RBC 2.80 L (4.20-5.40) 10^6/uL Hgb 8.3 L (12.0-16.0) g/dL Hct 25.7 L (37.0-47.0) % MCV 91.8 (81.0-99.0) fL MCH 29.6 (27.0-31.0) pg MCHC 32.3 (32.0-36.0) g/dL RDW 14.7 (12.0-15.0) % Plt Count 299 (130-450) 10^3/uL MPV 7.5 L (7.9-10.8) fL Reticulocyte % (Auto) (0.5-2.3) % Neut # (Auto) 9.3 H (1.5-6.6) 10^3/uL Lymph # (Auto) 1.1 L (1.5-3.5) 10^3/uL [place] # (Auto) 0.7 (0.0-1.0) 10^3/uL Eos # (Auto) 0.2 (0.0-0.7) 10^3/uL Baso # (Auto) 0.0 (0.0-0.1) 10^3/uL Absolute Nucleated RBC 0.00 x10^3/uL Nucleated RBC % 0.0 /100WBC Absolute Retic (0.020-0.110) 10^6/uL Sodium 139 (135-145) mmol/L Potassium 4.0 (3.5-5.0) mmol/L Chloride 113 H (101-111) mmol/L Carbon Dioxide 21 (21-32) mmol/L Anion Gap 5.0 L (6-13) BUN 16 (6-20) mg/dL Creatinine 0.9 (0.4-1.0) mg/dL Estimated GFR (MDRD) 61 L (>89) Glucose 134 H (70-100) mg/dL POC Whole Bld Glucose 126 H (70 - 100) mg/dL Calcium 8.7 (8.5-10.3) mg/dL Iron (28-170) ug/dL TIBC (250-450) ug/dL % Saturation (20-50) % Transferrin (192-382) mg/dL Ferritin (11.0-306.8) ng/mL Total Bilirubin 0.3 (0.2-1.0) mg/dL AST 10 (10-42) IU/L ALT < 10 L (10-60) IU/L Alkaline Phosphatase 86 (42-121) IU/L Lactate Dehydrogenase (91-225) IU/L Total Protein 4.7 L (6.7-8.2) g/dL Albumin 2.3 L (3.2-5.5) g/dL Globulin 2.4 (2.1-4.2) g/dL Albumin/Globulin Ratio 1.0 (1.0-2.2) Vitamin B12 (180-914) pg/mL 01/27/18 01/27/18 01/27/18 Range/Units 16:30 15:07 15:07 WBC (4.8-10.8) x10^3/uL RBC (4.20-5.40) 10^6/uL Hgb (12.0-16.0) g/dL Hct (37.0-47.0) % MCV (81.0-99.0) fL MCH (27.0-31.0) pg MCHC (32.0-36.0) g/dL RDW (12.0-15.0) % Plt Count (130-450) 10^3/uL MPV (7.9-10.8) fL Reticulocyte % (Auto) (0.5-2.3) % Neut # (Auto) (1.5-6.6) 10^3/uL Lymph # (Auto) (1.5-3.5) 10^3/uL [place] # (Auto) (0.0-1.0) 10^3/uL Eos # (Auto) (0.0-0.7) 10^3/uL Baso # (Auto) (0.0-0.1) 10^3/uL Absolute Nucleated RBC x10^3/uL Nucleated RBC % /100WBC Absolute Retic (0.020-0.110) 10^6/uL Sodium (135-145) mmol/L Potassium (3.5-5.0) mmol/L Chloride (101-111) mmol/L Carbon Dioxide (21-32) mmol/L Anion Gap (6-13) BUN (6-20) mg/dL Creatinine (0.4-1.0) mg/dL Estimated GFR (MDRD) (>89) Glucose (70-100) mg/dL POC Whole Bld Glucose 108 H (70 - 100) mg/dL Calcium (8.5-10.3) mg/dL Iron (28-170) ug/dL TIBC (250-450) ug/dL % Saturation (20-50) % Transferrin (192-382) mg/dL Ferritin 55.9 (11.0-306.8) ng/mL Total Bilirubin (0.2-1.0) mg/dL AST (10-42) IU/L ALT (10-60) IU/L Alkaline Phosphatase (42-121) IU/L Lactate Dehydrogenase 97 (91-225) IU/L Total Protein (6.7-8.2) g/dL Albumin (3.2-5.5) g/dL Globulin (2.1-4.2) g/dL Albumin/Globulin Ratio (1.0-2.2) Vitamin B12 5379 H (180-914) pg/mL 01/27/18 01/27/18 Range/Units 15:07 15:07 WBC (4.8-10.8) x10^3/uL RBC 3.15 L (4.20-5.40) 10^6/uL Hgb (12.0-16.0) g/dL Hct (37.0-47.0) % MCV (81.0-99.0) fL MCH (27.0-31.0) pg MCHC (32.0-36.0) g/dL RDW (12.0-15.0) % Plt Count (130-450) 10^3/uL MPV (7.9-10.8) fL Reticulocyte % (Auto) 0.97 (0.5-2.3) % Neut # (Auto) (1.5-6.6) 10^3/uL Lymph # (Auto) (1.5-3.5) 10^3/uL [place] # (Auto) (0.0-1.0) 10^3/uL Eos # (Auto) (0.0-0.7) 10^3/uL Baso # (Auto) (0.0-0.1) 10^3/uL Absolute Nucleated RBC x10^3/uL Nucleated RBC % /100WBC Absolute Retic 0.031 (0.020-0.110) 10^6/uL Sodium (135-145) mmol/L Potassium (3.5-5.0) mmol/L Chloride (101-111) mmol/L Carbon Dioxide (21-32) mmol/L Anion Gap (6-13) BUN (6-20) mg/dL Creatinine (0.4-1.0) mg/dL Estimated GFR (MDRD) (>89) Glucose (70-100) mg/dL POC Whole Bld Glucose (70 - 100) mg/dL Calcium (8.5-10.3) mg/dL Iron 7 L (28-170) ug/dL TIBC 237 L (250-450) ug/dL % Saturation 3 L (20-50) % Transferrin 169 L (192-382) mg/dL Ferritin (11.0-306.8) ng/mL Total Bilirubin (0.2-1.0) mg/dL AST (10-42) IU/L ALT (10-60) IU/L Alkaline Phosphatase (42-121) IU/L Lactate Dehydrogenase (91-225) IU/L Total Protein (6.7-8.2) g/dL Albumin (3.2-5.5) g/dL Globulin (2.1-4.2) g/dL Albumin/Globulin Ratio (1.0-2.2) Vitamin B12 (180-914) pg/mL ABX Reporting Has patient been on IV antibiotics over the past 48 hours?: Yes Assessment/Plan - Problem List (1) Pneumonia Impression: Conclusion/Plan: 01/28 WBC is going down to 11. 96% sats on room air, continue with antibiotics plan to d/c tomorrow 01/27 95% sats on room air, pt feel breath is better. but WBC is slight up pt seems aspiration pneumonia, switch to Rocephin and Flagyl. pt report fever at home, cough, CXR indicate pneumonia, and elevated WBC. Pt report she had aspiration problem, and hx of aspiration pneumonia. treatment for aspiration pneumonia Rocephin Flagyl sputum culture, follow up blood culture, follow up (2) Right sided weakness Conclusion/Plan: 01/27, continue PT/OT pt has hx of right side weakness on October,, but interestly, MRI at that time did not indicate pt has acute stroke. No blood thinner in pt's home medication list, also at the same time pt has right Carotid aneurysm. It seems her right side weakness from her previous. 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 it seems pt has some dehydration hydration with IVF of NS lab monitor (5) HTN (hypertension) Conclusion/Plan: BP is stable, continue home BP meds vital monitor (6) Cough Pt has Lisinopril, switch to Losartan
[2018-01-28] MEDS: LOSARTAN 50 MG TABLET PO SCH (14:44)
[2018-01-28] MEDS: ATORVASTATIN 40 MG TABLET PO SCH (21:00)
[2018-01-29] MEDS: HYDROcod/ACETAM 10 MG/325 MG TABLET PO PRN ×3 (00:48→20:46)
[2018-01-29] MEDS: metroNIDAZOLE 500 MG/100 ML 250 MG/50 ML BAG IV SCH ×3 (03:12→19:14)
[2018-01-29] MEDS: SODIUM CHLORIDE FLUSH 0.9% 10 ML SYRINGE IVP SCH ×3 (03:12→19:13)
[2018-01-29] MEDS ORDERED: HYDROcod/ACETAM 10 MG/325 MG TABLET PO ONE (03:45)
[2018-01-29 05:38] LABS: BASOPHILS % (AUTO) 0.6 %; EOSINOPHILS # (AUTO) 0.1 10^3/uL (0.0-0.7); EOSINOPHILS % (AUTO) 1.5 %; HGB - HEMOGLOBIN 9.5 g/dL (12.0-16.0); LYMPHOCYTES % (AUTO) 11.7 %; MEAN CORPUSCULAR HEMOGLOBIN 30.8 pg (27.0-31.0); MEAN CORPUSCULAR HGB CONC 34.2 g/dL (32.0-36.0); MEAN CORPUSCULAR VOLUME 90.1 fL (81.0-99.0); MEAN PLATELET VOLUME 7.1 fL (7.9-10.8); MONOCYTES # (AUTO) 0.5 10^3/uL (0.0-1.0); MONOCYTES % (AUTO) 5.6 %; NEUTROPHILS # (AUTO) 7.2 10^3/uL (1.5-6.6); NEUTROPHILS % (AUTO) 80.6 %; PLT - PLATELET COUNT 338 10^3/uL (130-450); RED BLOOD COUNT 3.08 10^6/uL (4.20-5.40); RED CELL DISTRIBUTION WIDTH 14.7 % (12.0-15.0); WHITE BLOOD COUNT 8.9 x10^3/uL (4.8-10.8)
[2018-01-29 05:43] LABS: ALBUMIN 2.4 g/dL (3.2-5.5); ALBUMIN/GLOBULIN RATIO 0.8 (1.0-2.2); ALKALINE PHOSPHATASE 82 IU/L (42-121); ALT ALANINE AMINOTRANSFERASE < 10 IU/L (10-60); AST ASPARTATE AMINOTRANSFERASE 10 IU/L (10-42); BILIRUBIN,TOTAL 0.5 mg/dL (0.2-1.0); BUN - BLOOD UREA NITROGEN 11 mg/dL (6-20); CALCIUM 8.8 mg/dL (8.5-10.3); CARBON DIOXIDE - CO2 23 mmol/L (21-32); CHLORIDE 106 mmol/L (101-111); CREATININE 0.7 mg/dL (0.4-1.0); GFR - MDRD 82 (>89); GLUCOSE 102 mg/dL (70-100); SODIUM 139 mmol/L (135-145); TOTAL PROTEIN 5.3 g/dL (6.7-8.2)
[2018-01-29] MEDS: hydrALAZINE 25 MG TABLET PO SCH ×3 (06:15→20:53)
[2018-01-29] MEDS ORDERED: POTASSIUM CHLORIDE 20 MEQ TABLET PO SCH (07:23)
[2018-01-29] MEDS: guaiFENesin 600 MG TABLET PO SCH ×2 (08:18→20:46)
[2018-01-29] MEDS: METOPROLOL SUCCINATE 50 MG TABLET PO SCH (08:18)
[2018-01-29] MEDS: amLODIPine 5 MG TABLET PO SCH (08:19)
[2018-01-29] MEDS: FAMOTIDINE 20 MG TABLET PO SCH (08:19)
[2018-01-29] MEDS: ALPRAZolam 0.25 MG TABLET PO SCH ×2 (08:19→20:46)
[2018-01-29] MEDS: POLYETHYLENE GLYCOL 3350 17 GM PACKET PO SCH (08:20)
[2018-01-29] MEDS: LOSARTAN 50 MG TABLET PO SCH (08:21)
[2018-01-29] MEDS: ENOXAPARIN 40 MG/0.4 ML SYRINGE SUBQ SCH (08:22)
[2018-01-29] MEDS ORDERED: HYDROmorphone 2 MG/ML VIAL IVP SCH (09:31)
[2018-01-29] MEDS ORDERED: cloNIDine 0.1 MG TABLET PO PRN (11:04)
[2018-01-29] MEDS: cefTRIAXone 1 GM in SODIUM CHLORIDE 0.9% MINIBAG 100 ML IV SCH (11:52)
--- NOTE | 2018-01-29 13:37 | PROVIDER PROGRESS NOTE ---
Subjective - Prog Note Date Prog Note Date: 01/29/18 - Subjective Pt reports feeling: No change Subjective: pt report she feel fine but still has cough. lung sound is still not clear, but no fever, chill, CP Current Medications - Current Medications Current Medications: Active Medications Acetaminophen (Tylenol) 650 mg PO Q4HR PRN PRN Reason: Pain 1 to 4 Last Admin: 01/26/18 21:38 Dose: 650 mg Hydrocodone Bitart/Acetaminophen ([place] 10 Mg/325 Mg) 1 tab PO Q4H PRN PRN Reason: PAIN Last Admin: 01/29/18 00:48 Dose: 1 tab Albuterol/Ipratropium (Duoneb) 3 ml INH Q4HR PRN PRN Reason: Wheezing Last Admin: 01/28/18 05:53 Dose: 3 ml Alprazolam (Xanax) 0.25 mg PO BID [facility] Last Admin: 01/29/18 08:19 Dose: 0.25 mg Amlodipine Besylate (Norvasc) 5 mg PO DAILY [facility] Last Admin: 01/29/18 08:19 Dose: 5 mg Atorvastatin Calcium (Lipitor) 80 mg PO QPM [facility] Last Admin: 01/28/18 21:00 Dose: 80 mg Clonidine HCl (Catapres) 0.1 mg PO BID PRN PRN Reason: Hypertensive Emergency Cyanocobalamin (Vitamin B-12) 1,000 mcg IM Q3D [facility] Last Admin: 01/26/18 19:51 Dose: 1,000 mcg Diphenhydramine HCl (Benadryl) 25 mg PO Q6HR PRN PRN Reason: Allergy Symptoms Last Admin: 01/28/18 03:00 Dose: 25 mg Enoxaparin Sodium (Lovenox) 40 mg SUBQ DAILY [facility] Last Admin: 01/29/18 08:22 Dose: 40 mg Famotidine (Pepcid) 20 mg PO DAILY [facility] Last Admin: 01/29/18 08:19 Dose: 20 mg Guaifenesin (Mucinex) 600 mg PO BID [facility] Last Admin: 01/29/18 08:18 Dose: 600 mg Hydralazine HCl (Apresoline) 25 mg PO TID [facility] Last Admin: 01/29/18 13:28 Dose: 25 mg Metronidazole (Flagyl 500 Mg/100 Ml) 250 mg in 50 mls @ 100 mls/hr IV Q8H [facility] Last Infusion: 01/29/18 11:16 Dose: Infused Ceftriaxone Sodium 1 gm/ (Sodium Chloride) 100 mls @ 200 mls/hr IV Q24H [facility] Last Infusion: 01/29/18 13:10 Dose: Infused Losartan Potassium (Cozaar) 50 mg PO DAILY [facility] Last Admin: 01/29/18 08:21 Dose: 50 mg Metoprolol Succinate (Toprol Xl) 100 mg PO DAILY [facility] Last Admin: 01/29/18 08:18 Dose: 100 mg Ondansetron HCl (Zofran Inj) 4 mg IVP Q6HR PRN PRN Reason: Nausea / Vomiting Oxymetazoline HCl (Afrin) 1 sprays MOHINI Q12H PRN PRN Reason: CONGESTION Last Admin: 01/28/18 10:30 Dose: 1 spr Polyethylene Glycol (Miralax) 17 gm PO DAILY [facility] Last Admin: 01/29/18 08:20 Dose: Not Given Sodium Chloride (Normal Saline Flush 0.9%) 10 ml IVP PRN PRN PRN Reason: NEEDED PER PROVIDER ORDERS Sodium Chloride (Normal Saline Flush 0.9%) 10 ml IVP 0100,0900,1700 [facility] Last Admin: 01/29/18 08:20 Dose: 10 ml Alprazolam [Xanax] 0.25 mg PO BID 09/18/13 Dexlansoprazole [Dexilant] 60 mg PO QDAC 09/18/13 HYDROcodone/ACET 10/325 [[place] 10 mg/325 mg] 1 tab PO Q6H PRN 10/25/17 Lisinopril 20 mg PO BID 10/25/17 Metoclopramide [Reglan] 10 mg PO ACHS PRN 10/25/17 Metoprolol Succinate [Toprol Xl] 100 mg PO DAILY 10/25/17 amLODIPine [Norvasc] 5 mg PO DAILY 10/25/17 Cyanocobalamin (Vitamin B-12) [Cyanocobalamin Injection] 1,000 mcg IM Q3D Hydralazine HCl 25 mg PO TID 01/26/18 Ibuprofen 200 mg PO Q6H PRN 01/26/18 Oxymetazoline HCl [Nasal [place]] 1 spray MOHINI PRN PRN 01/26/18 diphenhydrAMINE HCl [Diphenhydramine HCl] 25 mg PO Q6H PRN 01/26/18 Objective - Vital Signs/Intake & Output Reviewed Vital Signs: Yes Vital Signs: Vital Signs x48h Temp Pulse Resp BP Pulse Ox 01/29/18 13:28 74 150/59 H 01/29/18 08:00 37.2 C 81 16 131/61 H 94 Intake & Output: Intake & Output 01/26/18 01/27/18 01/28/18 01/29/18 23:59 23:59 23:59 23:59 Intake Total 7303.130 5711.5 3030.000 550 Output Total 400 3225 3300 1750 Balance 614.167 205.5 -270 -1200 - Objective General Appearance: positive: No acute distress, Alert. negative: Lethargic Eyes Bilateral: positive: PERRL, No lid inflammation, Conjunctivae nml ENT: positive: ENT inspection nml, Pharynx nml, No signs of dehydration, Purulent nasal drainage, Pharyngeal erythema, Oral lesions Neck: positive: Nml inspection, Thyroid nml, No JVD, Trachea midline. negative : Thyromegaly, Lymphadenopathy (R), Lymphadenopathy (L), Stiff neck, Carotid bruit, Swelling/bruising, Tracheal deviation Respiratory: positive: Chest non-tender, No respiratory distress, Other ( crackles at basilar of lung). negative: Wheezes, Rales, Rhonchi Cardiovascular: positive: Regular rate & rhythm, No murmur, No gallop. negative : Irregularly irregular, Extrasystoles, Tachycardia, Bradycardia, JVD present, Systolic murmur, Diastolic murmur Peripheral Pulses: 2+ Radial (R), 2+ Radial (L), 2+ Dorsalis pedis (R), 2+ Dorsalis pedis (L) Abdomen: positive: Non-tender, No organomegaly, Nml bowel sounds, No distention. negative: Tenderness, Guarding, Rebound Back: positive: Nml inspection. negative: CVA tenderness (R), CVA tenderness (L ) Skin: positive: Color nml, No rash, Warm, Dry. negative: Cyanosis, Diaphoresis , Pallor - Lab Results Fish Bones: 01/29/18 05:05 01/29/18 05:05 Other Labs: Lab Results x24hrs 01/29/18 01/29/18 Range/Units 05:05 05:05 WBC 8.9 (4.8-10.8) x10^3/uL RBC 3.08 L (4.20-5.40) 10^6/uL Hgb 9.5 L (12.0-16.0) g/dL Hct 27.7 L (37.0-47.0) % MCV 90.1 (81.0-99.0) fL MCH 30.8 (27.0-31.0) pg MCHC 34.2 (32.0-36.0) g/dL RDW 14.7 (12.0-15.0) % Plt Count 338 (130-450) 10^3/uL MPV 7.1 L (7.9-10.8) fL Neut # (Auto) 7.2 H (1.5-6.6) 10^3/uL Lymph # (Auto) 1.0 L (1.5-3.5) 10^3/uL [place] # (Auto) 0.5 (0.0-1.0) 10^3/uL Eos # (Auto) 0.1 (0.0-0.7) 10^3/uL Baso # (Auto) 0.0 (0.0-0.1) 10^3/uL Absolute Nucleated RBC 0.00 x10^3/uL Nucleated RBC % 0.0 /100WBC Sodium 139 (135-145) mmol/L Potassium 3.2 L (3.5-5.0) mmol/L Chloride 106 (101-111) mmol/L Carbon Dioxide 23 (21-32) mmol/L Anion Gap 10.0 (6-13) BUN 11 (6-20) mg/dL Creatinine 0.7 (0.4-1.0) mg/dL Estimated GFR (MDRD) 82 L (>89) Glucose 102 H (70-100) mg/dL Calcium 8.8 (8.5-10.3) mg/dL Total Bilirubin 0.5 (0.2-1.0) mg/dL AST 10 (10-42) IU/L ALT < 10 L (10-60) IU/L Alkaline Phosphatase 82 (42-121) IU/L Total Protein 5.3 L (6.7-8.2) g/dL Albumin 2.4 L (3.2-5.5) g/dL Globulin 2.9 (2.1-4.2) g/dL Albumin/Globulin Ratio 0.8 L (1.0-2.2) ABX Reporting Has patient been on IV antibiotics over the past 48 hours?: Yes Assessment/Plan - Problem List (1) Pneumonia Impression: Conclusion/Plan: 01/29 pt present some wet cough, some SOB, order CXR WBC became normal sputum culture reveals positive Ecoli, sensitivity to Rocephin, continue antibiotics, plan d/c tomorrow 01/28 WBC is going down to 11. 96% sats on room air, continue with antibiotics 01/27 95% sats on room air, pt feel breath is better. but WBC is slight up pt seems aspiration pneumonia, switch to Rocephin and Flagyl. pt report fever at home, cough, CXR indicate pneumonia, and elevated WBC. Pt report she had aspiration problem, and hx of aspiration pneumonia. treatment for aspiration pneumonia Rocephin Flagyl sputum culture, follow up blood culture, follow up (2) Right sided weakness Conclusion/Plan: 01/27, continue PT/OT pt has hx of right side weakness on October,, but interestly, MRI at that time did not indicate pt has acute stroke. No blood thinner in pt's home medication list, also at the same time pt has right Carotid aneurysm. It seems her right side weakness from her previous. 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 it seems pt has some dehydration hydration with IVF of NS lab monitor (5) HTN (hypertension) Conclusion/Plan: BP is stable, continue home BP meds vital monitor (6) Cough Pt has Lisinopril, switch to Losartan
[2018-01-29] MEDS: IPRATROPIUM/ALBUTEROL 3 ML NEB INH PRN (14:41)
--- NOTE | 2018-01-29 17:44 | XRAY Report ---
Procedure Date: 01/29/2018 Accession Number: [id number] / [id number] Procedure: XR - Chest 1 View X-Ray CPT Code: 99596 FULL RESULT: EXAM: CHEST RADIOGRAPHY EXAM DATE: 01/29/2018 04:07 PM. CLINICAL HISTORY: Cough, SOB. COMPARISON: CHEST 2 VIEW 01/26/2018. TECHNIQUE: 1 view. FINDINGS: Lungs/Pleura: There is increased opacity within the right chest. This is stable. The left lung remains clear. There is right costophrenic sulcus opacity which may represent effusion. There is no pneumothorax. Mediastinum: Normal heart size. There is thoracic aortic tortuosity. Other: None. IMPRESSION: 1. Normal heart size. There is thoracic aortic tortuosity. 2. There is patchy opacity within the right chest. There is right costophrenic sulcus blunting which may represent effusion. These findings are stable. 3. No pneumothorax. RADIA
[2018-01-29] MEDS ORDERED: SODIUM CHLORIDE 0.9% 1,000 ML IV PRN (18:00)
[2018-01-29] MEDS: ATORVASTATIN 40 MG TABLET PO SCH (20:46)
[2018-01-29] MEDS: CYANOCOBALAMIN 1,000 MCG/ML VIAL IM SCH (20:47)
[2018-01-30] MEDS: OXYMETAZOLINE NASAL SPRAY NAS PRN (00:01)
[2018-01-30] MEDS ORDERED: ALPRAZolam 0.25 MG TABLET PO ONE (01:43)
[2018-01-30] MEDS ORDERED: HYDROcod/ACETAM 10 MG/325 MG TABLET PO ONE (01:43)
[2018-01-30] MEDS: SODIUM CHLORIDE FLUSH 0.9% 10 ML SYRINGE IVP SCH ×2 (01:54→08:50)
[2018-01-30] MEDS: HYDROcod/ACETAM 10 MG/325 MG TABLET PO PRN ×2 (01:59→06:14)
[2018-01-30] MEDS: metroNIDAZOLE 500 MG/100 ML 250 MG/50 ML BAG IV SCH ×2 (02:42→11:28)
[2018-01-30] MEDS ORDERED: SODIUM CHLORIDE 0.9% 500 ML IV PRN (05:01)
[2018-01-30 05:46] LABS: BASOPHILS % (AUTO) 0.5 %; EOSINOPHILS # (AUTO) 0.1 10^3/uL (0.0-0.7); EOSINOPHILS % (AUTO) 1.9 %; HGB - HEMOGLOBIN 9.9 g/dL (12.0-16.0); LYMPHOCYTES # (AUTO) 1.3 10^3/uL (1.5-3.5); LYMPHOCYTES % (AUTO) 19.6 %; MEAN CORPUSCULAR HEMOGLOBIN 30.4 pg (27.0-31.0); MEAN CORPUSCULAR HGB CONC 33.5 g/dL (32.0-36.0); MEAN PLATELET VOLUME 7.1 fL (7.9-10.8); MONOCYTES # (AUTO) 0.6 10^3/uL (0.0-1.0); MONOCYTES % (AUTO) 9.3 %; NEUTROPHILS # (AUTO) 4.6 10^3/uL (1.5-6.6); NEUTROPHILS % (AUTO) 68.7 %; PLT - PLATELET COUNT 366 10^3/uL (130-450); RED BLOOD COUNT 3.25 10^6/uL (4.20-5.40); RED CELL DISTRIBUTION WIDTH 14.3 % (12.0-15.0); WHITE BLOOD COUNT 6.7 x10^3/uL (4.8-10.8)
[2018-01-30 06:03] LABS: ALBUMIN 2.5 g/dL (3.2-5.5); ALBUMIN/GLOBULIN RATIO 0.8 (1.0-2.2); BILIRUBIN,TOTAL 0.4 mg/dL (0.2-1.0); CALCIUM 8.6 mg/dL (8.5-10.3); CREATININE 0.3 mg/dL (0.4-1.0); TOTAL PROTEIN 5.5 g/dL (6.7-8.2)
[2018-01-30] MEDS: hydrALAZINE 25 MG TABLET PO SCH ×2 (06:14→13:26)
[2018-01-30] MEDS ORDERED: POTASSIUM CHLORIDE 20 MEQ TABLET PO ONE (07:21)
[2018-01-30] MEDS: METOPROLOL SUCCINATE 50 MG TABLET PO SCH (08:49)
[2018-01-30] MEDS: ALPRAZolam 0.25 MG TABLET PO SCH (08:49)
[2018-01-30] MEDS: POLYETHYLENE GLYCOL 3350 17 GM PACKET PO SCH (08:49)
[2018-01-30] MEDS: amLODIPine 5 MG TABLET PO SCH (08:49)
[2018-01-30] MEDS: FAMOTIDINE 20 MG TABLET PO SCH (08:49)
[2018-01-30] MEDS: ENOXAPARIN 40 MG/0.4 ML SYRINGE SUBQ SCH (08:49)
[2018-01-30] MEDS: LOSARTAN 50 MG TABLET PO SCH (08:49)
[2018-01-30] MEDS: guaiFENesin 600 MG TABLET PO SCH (08:51)
--- NOTE | 2018-01-30 11:31 | Discharge Plan ---
Discharge Plan Disposition: Home, Self Care Condition: Poor Prescriptions: Levofloxacin [Levaquin] 500 mg PO DAILY #5 tablet Losartan [Cozaar] 50 mg PO DAILY #10 tablet Diet: Regular Activity Restrictions: Activity as Tolerated Shower Restrictions: No (fall precaution) Instruction Topics: Directive [facility], Power of [employer] Agent Role, Agent Choosing, Aspiration Tx Ch, Pneumonia, Levofloxacin tablets, Losartan tablets Additional Instructions or Follow Up instructions: You may follow up your PCP in one week. Should your symptoms return or worsen, you may present ER or call 911 for help. No Smoking: If you smoke, Please STOP! Call for help. Follow-up with: Daniella Melton MD [Primary Care Provider] -
--- NOTE | 2018-01-30 11:37 | DISCHARGE SUMMARY ---
Discharge Summary Discharge Date: 01/30/18 Discharging Provider: GALLEGOS Primary Care Provider: Daniella Gillespie Condition at Discharge: Poor Discharge Disposition: 01 Home, Self Care Discharge Facility Name: home - DIAGNOSES Admission Diagnoses: (1) Pneumonia (2) Right sided weakness (3) Aneurysm of right internal carotid artery (4) Acute kidney injury (5) HTN (hypertension) Discharge Diagnoses with Status of Each Condition: (1) Pneumonia WBC is down to normal, O2 sats 94% on room air. no fever, chill. Cough is significantly reduced. Levaquin is prescribed for continuing antibiotic course. (2) Right sided weakness Improved. pt is evaluated and treated by PT/OT, recommend d/c pt to previous setting. (3) Aneurysm of right internal carotid artery stable, follow up PCP to continue monitor (4) Acute kidney injury resolved (5) HTN (hypertension) stable, continue PCP management (6) Cough Pt has Lisinopril, switch to Losartan. Cough is significantly reduced I discussed with pt about 01/30/18 CXR. There is thoracic aortic tortuosity but it did not show in 01/26/18 CXR and did not show 10/24/17 CXR as well. pt is asymptomatic, no pain, no SOB. Pt decline to have CT of chest, and state she has been monitored by her PCP Dr. Daniella Melton every three months. - HPI History of Present Illness: Ms. Pérez is a 77-year-old female with a past medical history significant for CVA, aneurysm of right internal carotid artery, hypertension, diabetes not currently on any medications, coronary artery disease status post stent, hyperlipidemia, colon cancer status post colon resection and history of hip fracture status post repair who presents to the emergency department with a chief complaint of fatigue low-grade fever and cough. Pt has many complaints. She state she had a difficult time pulling off her bed covers in the last night with her right arm. she continue to have slow and slurring speech since she has stroke 3 months ago. She report she had difficult to walk straightly and had balance issue, but she can not clarify what time she started to have. She continues to have some weakness in the right side which was similar to what she has had previously with her CVA on three months. Per Dr. Tyson's discharge summary, CT of the brain, CTA of the head and neck, and brain MRI have failed to show any acute injury. Today CT of head could not reveals acute findings. Pt also report she has bee cough for couple of months, and she took Lisinopril as her BP medication. But she report her cough became worse over the past week. She also report she had low degree fever for couple of days in the pas week. She also report she did not see her primary care doctor in follow-up since she was discharged from [facility] 3 months ago. CXR reveals opacities throughout the right lung suspicious for pneumonia. Pt has elevated WBC at 13.6. - ALLERGIES Allergies/Adverse Reactions: Allergies Allergy/AdvReac Type Severity Reaction Status Date / Time Penicillins Allergy Intermediate Rash Verified 01/26/18 17:15 diazepam [From Valium] AdvReac Intermediate "run up Verified 01/26/18 17:15 and down the melara" - MEDICATIONS Home Medications: Ambulatory Orders Medication Instructions Recorded Confirmed Alprazolam [Xanax] 0.25 mg PO BID 09/18/13 01/26/18 Dexlansoprazole [Dexilant] 60 mg PO QDAC 09/18/13 01/26/18 HYDROcodone/ACET 10/325 [[place] 10 1 tab PO Q6H PRN 10/25/17 01/26/18 mg/325 mg] Metoclopramide [Reglan] 10 mg PO ACHS PRN 10/25/17 01/26/18 Metoprolol Succinate [Toprol Xl] 100 mg PO DAILY 10/25/17 01/26/18 amLODIPine [Norvasc] 5 mg PO DAILY 10/25/17 01/26/18 Atorvastatin [Lipitor] 80 mg PO QPM tablet 10/26/17 01/26/18 Cyanocobalamin (Vitamin B-12) 1,000 mcg IM Q3D 01/26/18 01/26/18 [Cyanocobalamin Injection] Hydralazine HCl 25 mg PO TID 01/26/18 01/26/18 Ibuprofen 200 mg PO Q6H PRN 01/26/18 01/26/18 Oxymetazoline HCl [Nasal [place]] 1 spray MOHINI PRN PRN 01/26/18 01/26/18 diphenhydrAMINE HCl 25 mg PO Q6H PRN 01/26/18 01/26/18 [Diphenhydramine HCl] Levofloxacin [Levaquin] 500 mg PO DAILY #5 tablet 01/30/18 Losartan [Cozaar] 50 mg PO DAILY #10 tablet 01/30/18 - PHYSICAL EXAM AT DISCHARGE General Appearance: positive: No acute distress, Alert. negative: Lethargic Eyes Bilateral: positive: Normal inspection, PERRL, No lid inflammation, Conjunctivae nml ENT: positive: ENT inspection nml, Pharynx nml, No signs of dehydration. negative: Purulent nasal drainage, Pharyngeal erythema, Oral lesions Neck: positive: Nml inspection, Thyroid nml, No JVD, Trachea midline. negative : Thyromegaly, Lymphadenopathy (R), Lymphadenopathy (L), Stiff neck, Carotid bruit, Swelling/bruising, Tracheal deviation Respiratory: positive: Chest non-tender, No respiratory distress. negative: Wheezes, Rales, Rhonchi Cardiovascular: positive: Regular rate & rhythm, No murmur, No gallop. negative : Irregularly irregular, Extrasystoles, Tachycardia, Bradycardia, JVD present, Systolic murmur, Diastolic murmur Peripheral Pulses: positive: 2+ Abdomen: positive: Non-tender, No organomegaly, Nml bowel sounds, No distention. negative: Tenderness, Guarding, Rebound Back: positive: Nml inspection. negative: CVA tenderness (R), CVA tenderness (L ) Skin: positive: Color nml, No rash, Warm, Dry. negative: Cyanosis, Diaphoresis , Pallor Extremities: positive: Non-tender, Full ROM, Nml appearance. negative: Calf tenderness, Joint swelling, Shine's sign/cords Neurologic/Psychiatric: positive: Oriented x3, Sensation nml, Mood/affect nml. negative: Weakness, Sensory loss, Facial droop, Slurred/abnml speech, Depressed mood/affect - LABS Result Diagrams: 01/30/18 05:21 01/30/18 05:21 - FOLLOW UP Follow Up: You may follow up your PCP in one week. Should your symptoms return or worsen, you may present ER or call 911 for help. - TIME SPENT Time Spent in Discharge (Minutes): 50
[2018-01-30] MEDS ORDERED: HYDROmorphone 0.5 MG/0.5 ML SYRINGE IVP ONE (12:00)
[2018-01-30] MEDS: cefTRIAXone 1 GM in SODIUM CHLORIDE 0.9% MINIBAG 100 ML IV SCH (12:00)
[2018-01-30] MEDS ORDERED: HYDROmorphone 2 MG TABLET PO ONE (12:00)
[2018-01-30 15:33] VITALS: BP 133/83
== END 2018-01-30 16:30 | disposition home or self-care (01) | DRG 178 ==
LOC: EDUNIT# → ED 14:48 → MS2 17:59
PROVIDERS: ADMIT Nurse Practitioner Gerontology; ATTEND Nurse Practitioner Gerontology
DX: J18.1 Lobar pneumonia, unspecified organism (principal); J15.5 Pneumonia due to Escherichia coli; E86.0 Dehydration; I69.351 Hemiplegia and hemiparesis following cerebral infarction affecting right dominant side; N17.9 Acute kidney failure, unspecified; J44.0 Chronic obstructive pulmonary disease with (acute) lower respiratory infection; I69.328 Other speech and language deficits following cerebral infarction; Z79.4 Long term (current) use of insulin; R47.81 Slurred speech; I10 Essential (primary) hypertension; I67.1 Cerebral aneurysm, nonruptured; I77.1 Stricture of artery; R05 Cough; T46.4X5A Adverse effect of angiotensin-converting-enzyme inhibitors, initial encounter; E11.9 Type 2 diabetes mellitus without complications; K21.9 Gastro-esophageal reflux disease without esophagitis; I25.10 Atherosclerotic heart disease of native coronary artery without angina pectoris; E78.5 Hyperlipidemia, unspecified; F32.9 Major depressive disorder, single episode, unspecified; I25.2 Old myocardial infarction; Z85.038 Personal history of other malignant neoplasm of large intestine; Z95.5 Presence of coronary angioplasty implant and graft; Z79.899 Other long term (current) drug therapy; Z87.891 Personal history of nicotine dependence
CPT/HCPCS: 36415; 70450; 71045; 71046; 80053; 81001; 81003; 82270; 82607; 82728; 83036; 83540; 83605; 83615; 83690; 83735; 84466; 84484; 85025; 85044; 87040; 87070; 87077; 87086; 87181; 87205; 93005; 94640; 96365; 96375; 99284

== ENCOUNTER 2019-01-25 14:55 | Outpatient (CLI) | payer MEDICARE, MEDICAID ==
[2019-01-26 17:10] VITALS: BP 107/36
== END 2019-01-25 14:56 | disposition critical access hospital (66) ==
LOC: EMS 14:55
PROVIDERS: ATTEND Surgery
DX: R53.1 Weakness (principal); R47.81 Slurred speech; R63.0 Anorexia; R63.4 Abnormal weight loss
CPT/HCPCS: A0425; A0427

== ENCOUNTER 2019-01-25 15:18 | Observation (INO) | payer MEDICARE, MEDICAID ==
[2019-01-25 15:47] LABS: BASOPHILS % (AUTO) 0.1 %; EOSINOPHILS % (AUTO) 0.3 %; HGB - HEMOGLOBIN 8.8 g/dL (12.0-16.0); LYMPHOCYTES # (AUTO) 0.7 10^3/uL (1.5-3.5); LYMPHOCYTES % (AUTO) 4.3 %; MEAN CORPUSCULAR HEMOGLOBIN 29.2 pg (27.0-31.0); MEAN CORPUSCULAR HGB CONC 29.7 g/dL (32.0-36.0); MEAN CORPUSCULAR VOLUME 98.3 fL (81.0-99.0); MEAN PLATELET VOLUME 9.3 fL (7.9-10.8); MONOCYTES # (AUTO) 0.7 10^3/uL (0.0-1.0); MONOCYTES % (AUTO) 4.1 %; NEUTROPHILS # (AUTO) 14.5 10^3/uL (1.5-6.6); NEUTROPHILS % (AUTO) 90.8 %; PLT - PLATELET COUNT 218 10^3/uL (130-450); RED BLOOD COUNT 3.01 10^6/uL (4.20-5.40); RED CELL DISTRIBUTION WIDTH 14.6 % (12.0-15.0)
[2019-01-25 15:57] LABS: ALBUMIN 3.1 g/dL (3.2-5.5); ALBUMIN/GLOBULIN RATIO 1.1 (1.0-2.2); BILIRUBIN,TOTAL 0.4 mg/dL (0.2-1.0); CALCIUM 8.8 mg/dL (8.5-10.3); CREATININE 1.3 mg/dL (0.4-1.0); TOTAL PROTEIN 5.8 g/dL (6.7-8.2)
[2019-01-25 16:02] LABS: BILIRUBIN,URINE NEGATIVE (NEGATIVE); GLUCOSE, URINE (UA) NEGATIVE (NEGATIVE); KETONES,URINE (UA) TRACE mg/dL (NEGATIVE); LEUKOCYTE ESTERASE, URINE TRACE (NEGATIVE); NITRITE,URINE NEGATIVE (NEGATIVE); OCCULT BLOOD,URINE NEGATIVE (NEGATIVE); PROTEIN,URINE NEGATIVE (NEGATIVE); UROBILINOGEN,URINE 0.2 (NORMAL) E.U./dL (NORMAL)
[2019-01-25 16:06] LABS: CLARITY,URINE CLEAR (CLEAR)
[2019-01-25 16:21] LABS: BACTERIA,URINE None Seen /HPF (None Seen); CASTS, URINE 0-2 Hyaline Casts /LPF; RBC,URINE None Seen /HPF (0-5); SQUAMOUS EPITHELIAL CELL,UR MOD Squamous (<= Few)
[2019-01-25] MEDS ORDERED: SODIUM CHLORIDE 0.9% 1,000 ML IV ONE (17:01)
[2019-01-25] MEDS ORDERED: ACETAMINOPHEN 1,000 MG/100 ML 100 ML IV STA (17:05)
--- NOTE | 2019-01-25 17:06 | ED Physician Documentation ---
PD HPI HEADACHE - Stated complaint Stated Complaint: HEADACHE - Chief complaint Chief Complaint: General - History obtained from History obtained from: Patient - History of Present Illness Timing - onset: How many weeks ago (2) Timing - onset during: Rest Timing - duration: Weeks (2) Timing - details: Gradual onset, Still present Location: Back, Left Quality: Throbbing Associated symptoms: Nausea, Weakness. No: Fever, Stiff neck Improved by: Rest, Quiet Similar symptoms before: Has not had sx before Recently seen: Not recently seen - Additional information Additional information: 78-year-old female with a history of prior right-sided CVA and pneumonia has developed weakness over the past 2 weeks and today she was weak enough she could not sit up in bed unassisted. She has come to the emergency department now for evaluation. She denies any fever she denies any cough. She has had a decreased oral intake and feels dehydrated. She has a headache on the left side of her head and she has a known carotid aneurysm. Review of Systems Constitutional: reports: Myalgias, Fatigue, Sweats. denies: Fever Eyes: denies: Decreased vision Ears: denies: Ear pain Nose: denies: Rhinorrhea / runny nose, Congestion Throat: denies: Sore throat Cardiac: denies: Chest pain / pressure, Palpitations Respiratory: denies: Dyspnea, Cough GI: reports: Abdominal Pain, Nausea, Vomiting, Constipation : denies: Dysuria, Frequency Skin: denies: Rash Musculoskeletal: reports: Neck pain. denies: Back pain, Extremity pain Neurologic: reports: Generalized weakness, Headache. 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 Cardiovascular: Coronary stent - Present Medications Home Medications: Ambulatory Orders Medication Instructions Recorded Confirmed Alprazolam [Xanax] 0.25 mg PO BID 09/18/13 01/26/18 Dexlansoprazole [Dexilant] 60 mg PO BID 09/18/13 01/25/19 HYDROcodone/ACET 10/325 [[place] 10 1 tab PO Q6H PRN 10/25/17 01/25/19 mg/325 mg] Metoclopramide [Reglan] 10 mg PO ACHS PRN 10/25/17 01/25/19 Metoprolol Succinate [Toprol Xl] 100 mg PO DAILY 10/25/17 01/25/19 amLODIPine [Norvasc] 5 mg PO DAILY 10/25/17 01/25/19 Atorvastatin [Lipitor] 80 mg PO QPM tablet 10/26/17 01/25/19 Cyanocobalamin (Vitamin B-12) 1,000 mcg IM ONCE 01/26/18 01/25/19 [Cyanocobalamin Injection] Hydralazine HCl 25 mg PO TID 01/26/18 01/25/19 Ibuprofen 200 mg PO Q6H PRN 01/26/18 01/25/19 Oxymetazoline HCl [Nasal [place]] 1 spray MOHINI PRN PRN 01/26/18 01/26/18 diphenhydrAMINE HCl 25 mg PO Q6H PRN 01/26/18 01/26/18 [Diphenhydramine HCl] Levofloxacin [Levaquin] 500 mg PO DAILY #5 tablet 01/30/18 Losartan [Cozaar] 50 mg PO DAILY #10 tablet 01/30/18 Acetaminophen 325 mg PO Q6HR PRN 01/25/19 01/25/19 Aspirin 325 mg PO DAILY 01/25/19 01/25/19 Butalbital/Aspirin/Caffeine 1 - 2 tab ORAL PRN PRN 01/25/19 01/25/19 [Fiorinal 50-325-40 mg Capsule] Chlorthalidone 25 mg ORAL DAILY 01/25/19 01/25/19 Escitalopram Oxalate [Lexapro] 20 mg PO DAILY 01/25/19 01/25/19 Fluticasone Propionate [Flovent 1 puffs IN BID 01/25/19 01/25/19 Hfa] Ipratropium/Albuterol [Duoneb] 3 ml IN QID 01/25/19 01/25/19 Lisinopril 20 mg PO BID 01/25/19 01/25/19 Nitroglycerin [Nitrostat] 1 tab SL PRN PRN 01/25/19 01/25/19 Ondansetron Odt [Zofran Odt] 4 mg PO Q8HR PRN 01/25/19 01/25/19 Polyethylene Glycol 3350 [Miralax] 17 gm PO DAILY PRN 01/25/19 01/25/19 Tiotropium [place] [Spiriva] 1 puffs INH DAILY 01/25/19 01/25/19 - Allergies Allergies/Adverse Reactions: Allergies Allergy/AdvReac Type Severity Reaction Status Date / Time Penicillins Allergy Intermediate Rash Verified 01/26/18 17:15 influenza virus vacc Allergy Rash Verified 01/25/19 16:09 trivalent, split [From Fluzone] diazepam [From Valium] AdvReac Intermediate "run up Verified 01/26/18 17:15 and down the melara" - Social History Does the pt smoke?: Yes Smoking Status: Current every day smoker Does the pt drink ETOH?: No Does the pt have substance abuse?: No - Immunizations Immunizations are current?: Yes - POLST Patient has POLST: No POLST Status: Full Code PD ED PE NORMAL - Vitals Vital signs reviewed: Yes (normal ) - General General: Alert and oriented X 3, Well developed/nourished - HEENT HEENT: Atraumatic, PERRL, EOMI - Neck Neck: Supple, no meningeal sign, No bony TTP, No JVD - Cardiac Cardiac: RRR, No murmur - Respiratory Respiratory: No respiratory distress, Other (rhonchi in the right base) - Abdomen Abdomen: Soft, Non tender - Back Back: No CVA TTP, No spinal TTP - Derm Derm: Normal color, Warm and dry, No rash - Extremities Extremities: No deformity, No edema - Neuro Neuro: Alert and oriented X 3, 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, No motor deficit, No sensory deficit, Normal speech Eye Opening: Spontaneous Motor: Obeys Commands Verbal: Oriented GCS Score: 15 - Psych Psych: Normal mood, Normal affect Results - Vitals Vitals: Vital Signs - 24 hr 01/25/19 01/25/19 01/25/19 15:21 15:34 16:57 Temperature 37.4 C 37.4 C Heart Rate 86 83 77 Respiratory 18 16 12 Rate Blood Pressure 117/61 106/56 L 99/61 O2 Saturation 95 96 94 01/25/19 01/25/19 01/25/19 17:31 17:32 17:33 Temperature Heart Rate 83 76 79 Respiratory Rate Blood Pressure 106/56 L 83/49 L 115/56 L O2 Saturation 96 93 97 01/25/19 18:21 Temperature Heart Rate 84 Respiratory 12 Rate Blood Pressure 122/103 H O2 Saturation 94 Oxygen O2 Source Room air - Labs Labs: Laboratory Tests 01/25/19 01/25/19 01/25/19 15:40 15:40 15:55 WBC 16.0 H RBC 3.01 L Hgb 8.8 L Hct 29.6 L MCV 98.3 MCH 29.2 MCHC 29.7 L RDW 14.6 Plt Count 218 MPV 9.3 Neut # (Auto) 14.5 H Lymph # (Auto) 0.7 L [place] # (Auto) 0.7 Eos # (Auto) 0.0 Baso # (Auto) 0.0 Absolute Nucleated RBC 0.00 Nucleated RBC % 0.0 Sodium 139 Potassium 3.6 Chloride 109 Carbon Dioxide 19 L Anion Gap 11.0 BUN 31 H Creatinine 1.3 H Estimated GFR (MDRD) 40 L Glucose 127 H Lactic Acid Calcium 8.8 Total Bilirubin 0.4 AST 17 ALT 14 Alkaline Phosphatase 83 Total Protein 5.8 L Albumin 3.1 L Globulin 2.7 Albumin/Globulin Ratio 1.1 Lipase 20 L Urine Color YELLOW Urine Clarity CLEAR Urine pH 5.0 Ur Specific [place] 1.010 Urine Protein NEGATIVE Urine Glucose (UA) NEGATIVE Urine Ketones TRACE Urine Occult Blood NEGATIVE Urine Nitrite NEGATIVE Urine Bilirubin NEGATIVE Urine Urobilinogen 0.2 (NORMAL) Ur Leukocyte Esterase TRACE H Urine RBC None Seen Urine WBC 0-3 Ur Squamous Epith Cells MOD Squamous H Urine Bacteria None Seen Urine Casts 0-2 Hyaline Casts Ur Microscopic Review INDICATED Urine Culture Comments NOT INDICATED 01/25/19 17:22 WBC RBC Hgb Hct MCV MCH MCHC RDW Plt Count MPV Neut # (Auto) Lymph # (Auto) [place] # (Auto) Eos # (Auto) Baso # (Auto) Absolute Nucleated RBC Nucleated RBC % Sodium Potassium Chloride Carbon Dioxide Anion Gap BUN Creatinine Estimated GFR (MDRD) Glucose Lactic Acid 0.7 Calcium Total Bilirubin AST ALT Alkaline Phosphatase Total Protein Albumin Globulin Albumin/Globulin Ratio Lipase Urine Color Urine Clarity Urine pH Ur Specific [place] Urine Protein Urine Glucose (UA) Urine Ketones Urine Occult Blood Urine Nitrite Urine Bilirubin Urine Urobilinogen Ur Leukocyte Esterase Urine RBC Urine WBC Ur Squamous Epith Cells Urine Bacteria Urine Casts Ur Microscopic Review Urine Culture Comments - Rads (name of study) chest Radiology: Prelim report reviewed (Impression: Chronic pleural-parenchymal disease in the right superimposed acute infiltrate in the base difficult to exclude.), EMP read indepedently, See rad report ct head Radiology: Prelim report reviewed (Impression: No acute intracranial CT abnormality.), EMP read indepedently, See rad report Procedures - IVC sono (time) 1645 Bedside IVC sono: IVC measures (cm) (0.79), IVC collapsed c insp (cm) (complete), Dehydration (est 2+ liter deficit) PD MEDICAL DECISION MAKING - ED course Complexity details: reviewed old records, reviewed results, re-evaluated patient, considered differential, d/w patient ED course: 78-year-old female with generalized weakness is found to be significantly dehydrated on interrogation of the inferior vena cava and she has rhonchi on examination in the right base. She has infiltrate on her chest x-ray and evidence of acute kidney injury on her laboratory work as well as elevated white blood cell count. She arrives to the emergency department hypotensive and is administered saline. Departure - Departure Disposition: [facility] DC/Xfer Clinical Impression: Acute kidney injury, Dehydration Pneumonia Qualifiers: Pneumonia type: due to unspecified organism Laterality: right Lung location: lower lobe of lung Qualified Code(s): J18.1 - Lobar pneumonia, unspecified organism
--- NOTE | 2019-01-25 17:39 | XRAY Report ---
Reason: rhonchi in the right base Procedure Date: 01/25/2019 Accession Number: [id number] / [id number] Procedure: XR - Chest 1 View X-Ray CPT Code: 08011 FULL RESULT: EXAM: CHEST RADIOGRAPHY EXAM DATE: 01/25/2019 05:12 PM. CLINICAL HISTORY: Rhonchi in the right base. COMPARISON: CHEST 2 VIEW 01/26/2018 4:14 PM CHEST 1 VIEW 10/24/2017 8:16 PM. TECHNIQUE: 1 view. FINDINGS: Lungs/Pleura: Generalized prominence of interstitial markings in the right lung with patchy added density decreased in prominence since previous study. No definite acute infiltrate, consolidation, or pneumothorax. Slight right pleural thickening versus trace effusion. No left effusion. Mediastinum: Within exam limitations, the cardiomediastinal contour is normal. Other: Osteopenia. 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 RADIA
[2019-01-25] MEDS ORDERED: ACETAMINOPHEN 325 MG TABLET PO PRN (17:53)
[2019-01-25] MEDS ORDERED: ONDANSETRON 4 MG/2 ML VIAL IVP PRN (17:53)
[2019-01-25] MEDS ORDERED: HYDROmorphone 1 MG/ML CARPUJECT IVP STA (17:56)
[2019-01-25] MEDS ORDERED: ONDANSETRON 4 MG/2 ML VIAL IVP STA (17:56)
[2019-01-25] MEDS ORDERED: cefTRIAXone 1 GM VIAL IVP SCH (17:57)
[2019-01-25] MEDS ORDERED: SODIUM CHLORIDE 0.9% 1,000 ML IV SCH ×2 (18:00→18:47)
[2019-01-25] MEDS ORDERED: ALBUTEROL NEB 2.5 MG/3 ML INH PRN (18:00)
[2019-01-25] MEDS ORDERED: IPRATROPIUM/ALBUTEROL 3 ML NEB INH PRN (18:00)
[2019-01-25] MEDS ORDERED: NITROGLYCERIN SL 0.4 MG TABLET SL PRN (18:01)
--- NOTE | 2019-01-25 18:03 | HISTORY & PHYSICAL EXAMINATION ---
Chief Complaint - Chief Complaint Chief Complaint: cough, weaknee <Menchaca - Last Filed: 01/25/19 18:03> - Chief Complaint Chief Complaint: cough, weakness <Anjum Day - Last Filed: 01/25/19 20:46> History of Present Illness - Admitted From Admitted From:: Home - History Obtained From Records Reviewed: Yes History obtained from: Patient, EMR <Anjum Day - Last Filed: 01/25/19 20:46> - History of Present Illness HPI Comment/Other: This is a 78 year old female with a past medical history significant for COPD (not on home oxygen), Hypertension, and prior CVA who presents from home for worsening weakness over the last few days. She states she has become progressively weak. The weakness is generalized but slightly more prominent in her lower extremities. She has had associated fevers, dyspnea, and cough. She tells me that she had what appears to be a loculated effusion/empyema which required a pleurodesis a few years ago. She believes she has pneumonia a few times over the last year but has never gone to the hospital as she has extra prednisone at home which she just takes whenever she feels short of breath. She is also complaining of a headache over the past week which has persisted without improvement despite taking Hydrocodone. The headache is new and located over the left side of her head back to her neck. She has had associated blurry vision of the left eye. In the emergency department, she was found to be hypotensive with systolic's in the 90's. She underwent a CT of the head which was unremarkable given her headache. She did have leukocytosis and an x-ray was concerning for an infiltrate. Her creatinine was elevated compared to her baseline. Give her presenting symptoms and these findings, medicine was consulted for admission. 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 Her Mother had a brain aneurysm. Her two brother was from cancer, one sister from stroke. She had 3 children. Social History Notes: The patient is originally from near the [facility]. She has been living on [facility] for the last 10 years. Her daughter is a respiratory therapist at [employer] and she moved to be closer to her daughter. The patient had 3 daughters 1 of whom has in an unfortunate car accident and the other one has severe congestive heart failure. The patient has been twice and is now . She smoked 1 pack a day for 53 years quit in 2017. She denies any alcohol or drug use. - Substance History Use: Uses substance without health or social issues: NONE - POLST Patient has POLST: No POLST Status: Full Code <Menchaca - Last Filed: 01/25/19 18:03> - Past Surgical History Other past surgical history: Pleurodesis of the right lung - Substance History Use: Uses substance without health or social issues: Tobacco Tobacco Details: Cigarettes <Anjum Day - Last Filed: 01/25/19 20:46> Meds/Allgy <Menchaca - Last Filed: 01/25/19 18:03> <Anjum Day - Last Filed: 01/25/19 20:46> - Home Medications Home Medications: Ambulatory Orders Medication Instructions Recorded Confirmed Alprazolam [Xanax] 0.25 mg PO BID 09/18/13 01/26/18 Dexlansoprazole [Dexilant] 60 mg PO BID 09/18/13 01/25/19 HYDROcodone/ACET 10/325 [[place] 10 1 tab PO Q6H PRN 10/25/17 01/25/19 mg/325 mg] Metoclopramide [Reglan] 10 mg PO ACHS PRN 10/25/17 01/25/19 Metoprolol Succinate [Toprol Xl] 100 mg PO DAILY 10/25/17 01/25/19 amLODIPine [Norvasc] 5 mg PO DAILY 10/25/17 01/25/19 Atorvastatin [Lipitor] 80 mg PO QPM tablet 10/26/17 01/25/19 Cyanocobalamin (Vitamin B-12) 1,000 mcg IM ONCE 01/26/18 01/25/19 [Cyanocobalamin Injection] Hydralazine HCl 25 mg PO TID 01/26/18 01/25/19 Ibuprofen 200 mg PO Q6H PRN 01/26/18 01/25/19 Oxymetazoline HCl [Nasal Vale] 1 spray MOHINI PRN PRN 01/26/18 01/26/18 diphenhydrAMINE HCl 25 mg PO Q6H PRN 01/26/18 01/26/18 [Diphenhydramine HCl] Levofloxacin [Levaquin] 500 mg PO DAILY #5 tablet 01/30/18 Losartan [Cozaar] 50 mg PO DAILY #10 tablet 01/30/18 Acetaminophen 325 mg PO Q6HR PRN 01/25/19 01/25/19 Aspirin 325 mg PO DAILY 01/25/19 01/25/19 Butalbital/Aspirin/Caffeine 1 - 2 tab ORAL PRN PRN 01/25/19 01/25/19 [Fiorinal 50-325-40 mg Capsule] Chlorthalidone 25 mg ORAL DAILY 01/25/19 01/25/19 Escitalopram Oxalate [Lexapro] 20 mg PO DAILY 01/25/19 01/25/19 Fluticasone Propionate [Flovent 1 puffs IN BID 01/25/19 01/25/19 Hfa] Ipratropium/Albuterol [Duoneb] 3 ml IN QID 01/25/19 01/25/19 Lisinopril 20 mg PO BID 01/25/19 01/25/19 Nitroglycerin [Nitrostat] 1 tab SL PRN PRN 01/25/19 01/25/19 Ondansetron Odt [Zofran Odt] 4 mg PO Q8HR PRN 01/25/19 01/25/19 Polyethylene Glycol 3350 [Miralax] 17 gm PO DAILY PRN 01/25/19 01/25/19 Tiotropium [place] [Spiriva] 1 puffs INH DAILY 01/25/19 01/25/19 - Allergies Allergies/Adverse Reactions: Allergies Allergy/AdvReac Type Severity Reaction Status Date / Time Penicillins Allergy Intermediate Rash Verified 01/26/18 17:15 influenza virus vacc Allergy Rash Verified 01/25/19 16:09 trivalent, split [From Fluzone] diazepam [From Valium] AdvReac Intermediate "run up Verified 01/26/18 17:15 and down the melara" Review of Systems - Constitutional Constitutional: reports: Fever, Weakness - Eyes Eyes: reports: Blurred vision - Cardiovascular Cariovascular: denies: Chest pain, Edema - Respiratory Respiratory: reports: Cough, SOB at rest, SOB with exertion - Gastrointestinal Gastrointestinal: denies: Abdominal pain, Nausea, Vomiting - Genitourinary Genitourinary: denies: Dysuria, Frequency, Hematuria - Neurological Neurological: reports: General weakness, Headache <OsoriodelvisAnjum - Last Filed: 01/25/19 20:46> <OsorioAnjum edmondson - Last Filed: 01/25/19 20:46> Prior Level of Functionality: Ambulates with cane at baseline. Able to perform most ADL's. (Osoriosakshi,Anjum) Exam - Vital Signs Reviewed Vital Signs: Yes - Physical Exam General Appearance: positive: No acute distress Eyes Bilateral: positive: PERRL, EOMI, Other (Left scalp tender to palpation) ENT: positive: Dry mucous membranes Respiratory: positive: No respiratory distress, Rhonchi (Right base) Cardiovascular: positive: Regular rate & rhythm, Systolic murmur Abdomen: positive: Non-tender, No distention. negative: Guarding Skin: positive: No rash, Warm, Dry Extremities: negative: No pedal edema Neurologic/Psychiatric: positive: Oriented x3. negative: Weakness, Facial droop, Slurred/abnml speech <OsoriodelvisAnjum - Last Filed: 01/25/19 20:46> - Vital Signs Vital Signs: Vital Signs x48h Temp Pulse Pulse Resp BP BP Pulse Ox 01/25/19 19:01 36.7 C 85 16 136/62 H 94 01/25/19 18:45 37.2 C 87 12 123/57 L 97 01/25/19 18:21 84 12 122/103 H 94 01/25/19 17:33 79 115/56 L 97 01/25/19 17:32 76 83/49 L 93 01/25/19 17:31 83 106/56 L 96 01/25/19 16:57 37.4 C 77 12 99/61 94 01/25/19 15:34 83 16 106/56 L 96 01/25/19 15:21 37.4 C 86 18 117/61 95 Conclusion/Plan - Lab Results Fish Bones: 01/25/19 15:40 01/25/19 15:40 <Menchaca - Last Filed: 01/25/19 18:03> - Problem List (1) Headache Conclusion/Plan: Her headache has persisted for one week and she does have left scalp tenderness on exam. Considering her age, blurry vision, and scalp tenderness this is concerning for possible giant cell arteritis. Her CT of the head was unremarkable and she does not have relative afferent pupillary defect. - Will start empiric high dose steroids - Check ESR - Morphine PRN - If her ESR is elevated, will discuss with general surgery regarding obtaining a temporal biopsy. If this can not be performed here then she will require transfer to another facility. (2) Pneumonia Conclusion/Plan: She has been complaining of subjective fevers and cough over the past week. She does have leukocytosis and her x-ray may show a possible infiltrate although she does have a history of pleurodesis which may cause these x-ray findings. Review of her prior x-rays suggest that this infiltrate has been present in the past which makes pneumonia less likely. Fortunately she is not hypoxic. - Will start Ceftriaxone and Azithromycin to cover for community acquired pneumonia considering her leukocytosis. Low threshold to discontinue over the next 24-48 hours depending on her clinical picture. - Follow up cultures Qualifiers: Pneumonia type: due to unspecified organism Laterality: right Lung location: lower lobe of lung Qualified Code(s): J18.1 - Lobar pneumonia, unspecified organism (3) Acute kidney injury Conclusion/Plan: She has non-oliguric acute kidney that is likely pre-renal in nature given her poor oral intake over last few days. - IV hydration - Monitor renal function and urine output (4) Hypertension Conclusion/Plan: She is on multiple hypertensives at home. Currently normotensive. - Will resume home medications as blood pressure tolerates Qualifiers: Hypertension type: essential hypertension Qualified Code(s): I10 - Essential (primary) hypertension (5) Hyperlipidemia Conclusion/Plan: Stable. - Continue home statin Qualifiers: Hyperlipidemia type: unspecified Qualified Code(s): E78.5 - Hyperlipidemia, unspecified (6) COPD exacerbation Conclusion/Plan: She did have wheezing on exam and given her dyspnea and cough along with possible infiltrate on chest x-ray. Has had exacerbations in the past and she does keep steroids at home in case she has one. She is on Spiriva at home. - Ceftriaxone and Azithromycin IV - Steroids - Duonebs - Monitor respiratory status - Lab Results Fish Bones: 01/25/19 15:40 01/25/19 15:40 <Anjum Day - Last Filed: 01/25/19 20:46> Core Measures - Anticipated LOS I expect patient to be DC'd or transferred within 96 hours.: Yes - DVT/VTE - Prophylaxis VTE/DVT Device ordered at admit?: Yes VTE/DVT Prophylaxis med ordered at admit?: Yes <Anjum Day - Last Filed: 01/25/19 20:46>
--- NOTE | 2019-01-25 18:33 | CT Report ---
Reason: Left hemicranial pain Procedure Date: 01/25/2019 Accession Number: [id number] / [id number] Procedure: CT - HEAD WO CPT Code: FULL RESULT: EXAM: CT HEAD EXAM DATE: 01/25/2019 06:09 PM. CLINICAL HISTORY: Left hemicranial pain. COMPARISON: HEAD W/O 01/26/2018 4:12 PM. TECHNIQUE: Multiaxial CT images were obtained from the foramen magnum to the vertex. Reformats: Sagittal and coronal. IV contrast: None. In accordance with CT protocol optimization, one or more of the following dose reduction techniques were utilized for this exam: automated exposure control, adjustment of mA and/or KV based on patient size, or use of iterative reconstructive technique. FINDINGS: Parenchyma: No intraparenchymal hemorrhage. No evidence of mass, midline shift, or CT findings of acute infarction. Periventricular white matter hypodensity may represent small vessel ischemic disease. Seymour-white differentiation is distinct. Extraaxial Spaces: Normal for age. No subdural or epidural collections identified. Ventricles: Normal in size and position. Sinuses and Orbits: Imaged paranasal sinuses, orbits, and mastoids show no significant abnormality. Bones: No evidence of fracture or calvarial defect. Other: None. IMPRESSION: No acute intracranial CT abnormality. RADIA
[2019-01-25] MEDS: AZITHROMYCIN INJ 500 MG in SODIUM CHLORIDE 0.9% 250 ML IV SCH (19:52)
[2019-01-25] MEDS: BUTALB/ACETAM/CAFF 50/325/40MG TABLET PO PRN (20:00)
[2019-01-25] MEDS ORDERED: MORPHINE 2 MG/ML CARPUJECT IVP ONE (21:00)
[2019-01-25] MEDS: FAMOTIDINE 20 MG TABLET PO SCH (21:06)
[2019-01-25] MEDS: methylPREDNISolone SUCCINATE 40 MG/ML VIAL IVP SCH (21:33)
[2019-01-26] MEDS ORDERED: SODIUM CHLORIDE 0.9% 500 ML IV ONE (00:17)
[2019-01-26] MEDS: MORPHINE 2 MG/ML CARPUJECT IVP PRN ×6 (02:24→23:39)
[2019-01-26] MEDS: SODIUM CHLORIDE FLUSH 0.9% 10 ML SYRINGE IVP SCH ×4 (02:25→23:30)
[2019-01-26] MEDS: HYDROcod/ACETAM 10 MG/325 MG TABLET PO PRN ×4 (03:03→22:07)
[2019-01-26 05:42] LABS: BASOPHILS % (AUTO) 0.3 %; EOSINOPHILS # (AUTO) 0.1 10^3/uL (0.0-0.7); EOSINOPHILS % (AUTO) 0.5 %; HGB - HEMOGLOBIN 8.7 g/dL (12.0-16.0); LYMPHOCYTES # (AUTO) 0.4 10^3/uL (1.5-3.5); LYMPHOCYTES % (AUTO) 2.3 %; MEAN CORPUSCULAR HEMOGLOBIN 29.9 pg (27.0-31.0); MEAN CORPUSCULAR HGB CONC 29.8 g/dL (32.0-36.0); MEAN CORPUSCULAR VOLUME 100.3 fL (81.0-99.0); MEAN PLATELET VOLUME 9.9 fL (7.9-10.8); MONOCYTES # (AUTO) 0.2 10^3/uL (0.0-1.0); NEUTROPHILS # (AUTO) 14.4 10^3/uL (1.5-6.6); NEUTROPHILS % (AUTO) 95.4 %; PLT - PLATELET COUNT 231 10^3/uL (130-450); RED BLOOD COUNT 2.91 10^6/uL (4.20-5.40); RED CELL DISTRIBUTION WIDTH 14.6 % (12.0-15.0); WHITE BLOOD COUNT 15.1 x10^3/uL (4.8-10.8)
[2019-01-26 05:45] LABS: CALCIUM 8.7 mg/dL (8.5-10.3); CREATININE 1.1 mg/dL (0.4-1.0); MAGNESIUM 1.8 mg/dL (1.7-2.8)
[2019-01-26] MEDS: methylPREDNISolone SUCCINATE 40 MG/ML VIAL IVP SCH ×3 (06:37→22:08)
[2019-01-26] MEDS: SODIUM CHLORIDE FLUSH 0.9% 10 ML SYRINGE IVP PRN ×3 (06:44→15:20)
[2019-01-26] MEDS: AZITHROMYCIN INJ 500 MG in SODIUM CHLORIDE 0.9% 250 ML IV SCH (09:13)
[2019-01-26] MEDS: ASPIRIN 325 MG TABLET PO SCH (09:16)
[2019-01-26] MEDS: METOPROLOL SUCCINATE 50 MG TABLET PO SCH (09:16)
[2019-01-26] MEDS: FAMOTIDINE 20 MG TABLET PO SCH (09:16)
[2019-01-26] MEDS: ENOXAPARIN 40 MG/0.4 ML SYRINGE SUBQ SCH (09:17)
[2019-01-26] MEDS: ESCITALOPRAM 10 MG TABLET PO SCH (09:17)
[2019-01-26] MEDS: POLYETHYLENE GLYCOL 3350 17 GM PACKET PO SCH (09:18)
[2019-01-26] MEDS: cefTRIAXone 1 GM in SODIUM CHLORIDE 0.9% MINIBAG 100 ML IV SCH (10:30)
[2019-01-26] MEDS: SODIUM CHLORIDE 0.9% 1,000 ML IV SCH (13:53)
[2019-01-26] MEDS ORDERED: methylPREDNISolone SUCCINATE 40 MG/ML VIAL IVP SCH ×2 (14:00)
--- NOTE | 2019-01-26 14:46 | PROVIDER PROGRESS NOTE ---
Subjective - Prog Note Date Prog Note Date: 01/26/19 - Subjective Pt reports feeling: Improved Subjective: pt report she feel better. she denies vision change on her both eyes. she report her headache is much better. she denies fever, chill, cough, SOB, chest pain. she still report weakness and difficult to walk Current Medications - Current Medications Current Medications: Active Medications Acetaminophen (Tylenol) 650 mg PO Q4HR PRN PRN Reason: Pain 1 to 4 Acetaminophen/Butalbital/Caffeine (Fioricet) 1 - 2 tab PO PRN PRN PRN Reason: HEADACHE Last Admin: 01/25/19 20:00 Dose: 1 tab Hydrocodone Bitart/Acetaminophen ([place] 10 Mg/325 Mg) 1 tab PO Q6H PRN PRN Reason: PAIN Last Admin: 01/26/19 15:20 Dose: 1 tab Albuterol () 2.5 mg INH RTQ4H PRN PRN Reason: Wheezing Albuterol/Ipratropium (Duoneb) 3 ml INH RTQID PRN PRN Reason: Wheezing Last Admin: 01/26/19 15:37 Dose: 3 ml Aspirin (Maranda) 325 mg PO DAILY [facility] Last Admin: 01/26/19 09:16 Dose: 325 mg Enoxaparin Sodium (Lovenox) 40 mg SUBQ DAILY [facility] Last Admin: 01/26/19 09:17 Dose: 40 mg Escitalopram Oxalate (Lexapro) 20 mg PO DAILY [facility] Last Admin: 01/26/19 09:17 Dose: Not Given Famotidine (Pepcid) 20 mg PO DAILY [facility] Last Admin: 01/26/19 09:16 Dose: 20 mg Azithromycin 500 mg/ Sodium (Chloride) 250 mls @ 250 mls/hr IV DAILY [facility] Last Infusion: 01/26/19 10:13 Dose: Infused Ceftriaxone Sodium 1 gm/ (Sodium Chloride) 100 mls @ 200 mls/hr IV Q24H [facility] Last Infusion: 01/26/19 11:00 Dose: Infused Sodium Chloride (Normal Saline 0.9%) 1,000 mls @ 75 mls/hr IV .[id number] [facility] Last Admin: 01/26/19 13:53 Dose: 75 mls/hr Methylprednisolone (Solu-Medrol (40mg Vial)) 30 mg IVP TID [facility] Last Admin: 01/26/19 13:52 Dose: 30 mg Metoprolol Succinate (Toprol Xl) 100 mg PO DAILY [facility] Last Admin: 01/26/19 09:16 Dose: 100 mg Morphine Sulfate (Morphine (Carpuject)) 1 mg IVP Q4HR PRN PRN Reason: PAIN Last Admin: 01/26/19 15:19 Dose: 1 mg Nitroglycerin (Nitrostat) 0.4 mg SL PRN PRN PRN Reason: Chest Pain Ondansetron HCl (Zofran Inj) 4 mg IVP Q6HR PRN PRN Reason: Nausea / Vomiting Polyethylene Glycol (Miralax) 17 gm PO DAILY [facility] Last Admin: 01/26/19 09:18 Dose: Not Given Sodium Chloride (Normal Saline Flush 0.9%) 10 ml IVP PRN PRN PRN Reason: NEEDED PER PROVIDER ORDERS Last Admin: 01/26/19 15:20 Dose: 10 ml Sodium Chloride (Normal Saline Flush 0.9%) 10 ml IVP 0100,0900,1700 [facility] Last Admin: 01/26/19 10:37 Dose: 10 ml Alprazolam [Xanax] 0.25 mg PO BID PRN 09/18/13 Dexlansoprazole [Dexilant] 60 mg PO BID 09/18/13 HYDROcodone/ACET 10/325 [[place] 10 mg/325 mg] 1 tab PO Q6H PRN 10/25/17 Metoclopramide [Reglan] 10 mg PO TID 10/25/17 Metoprolol Succinate [Toprol Xl] 100 mg PO DAILY 10/25/17 amLODIPine [Norvasc] 5 mg PO DAILY 10/25/17 Cyanocobalamin (Vitamin B-12) [Cyanocobalamin Injection] 1,000 mcg IM Q14D 01/26/18 Hydralazine HCl 25 mg PO TID 01/26/18 Ibuprofen 200 mg PO Q6H PRN 01/26/18 Acetaminophen 325 mg PO Q6HR PRN 01/25/19 Aspirin 325 mg PO DAILY 01/25/19 Fluticasone Propionate [Flovent Hfa] 1 puffs IN BID 01/25/19 Lisinopril 20 mg PO BID 01/25/19 Polyethylene Glycol 3350 [Miralax] 17 gm PO DAILY PRN 01/25/19 Sennosides [Senna] 17.2 mg PO QPM PRN 01/26/19 Objective - Vital Signs/Intake & Output Reviewed Vital Signs: Yes Vital Signs: Vital Signs x48h Temp Pulse Pulse Resp BP Pulse Ox 01/26/19 12:42 36.9 C 72 15 123/47 L 96 01/26/19 10:58 66 14 01/26/19 08:00 37.0 C 83 14 129/59 L 91 L Intake & Output: Intake & Output 01/23/19 01/24/19 01/25/19 01/26/19 23:59 23:59 23:59 23:59 Intake Total 1700 3310 Output Total 1440 Balance 1700 1870 - Objective General Appearance: positive: No acute distress, Alert. negative: Lethargic Eyes Bilateral: positive: Normal inspection, PERRL, No lid inflammation, Conjunctivae nml ENT: positive: ENT inspection nml, Pharynx nml, No signs of dehydration. negative: Purulent nasal drainage, Pharyngeal erythema, Oral lesions Neck: positive: Nml inspection, Thyroid nml, No JVD, Trachea midline. negative: Thyromegaly, Lymphadenopathy (R), Lymphadenopathy (L), Stiff neck, Swelling/bru ising, Tracheal deviation Respiratory: positive: Chest non-tender, No respiratory distress. negative: Wheezes, Rales, Rhonchi Cardiovascular: positive: Regular rate & rhythm, No murmur, No gallop. negative: Irregularly irregular, Extrasystoles, Tachycardia, Bradycardia, JVD present, Systolic murmur, Diastolic murmur Peripheral Pulses: 2+ Radial (R), 2+ Radial (L), 2+ Dorsalis pedis (R), 2+ Dorsalis pedis (L) Abdomen: positive: Non-tender, No organomegaly, Nml bowel sounds, No distention. negative: Tenderness, Guarding, Rebound Back: positive: Nml inspection. negative: CVA tenderness (R), CVA tenderness (L) Skin: positive: No rash, Warm, Dry. negative: Cyanosis, Diaphoresis, Pallor Extremities: positive: Non-tender, Nml appearance. negative: Calf tenderness, Joint swelling, Shine's sign/cords Neurologic/Psychiatric: positive: Oriented x3, Sensation nml, Mood/affect nml. negative: Weakness, Sensory loss, Facial droop, Slurred/abnml speech, Depressed mood/affect - Lab Results Fish Bones: 01/26/19 05:10 01/26/19 05:10 Other Labs: Lab Results x24hrs 01/26/19 01/26/19 01/25/19 Range/Units 05:10 05:10 20:38 WBC 15.1 H (4.8-10.8) x10^3/uL RBC 2.91 L (4.20-5.40) 10^6/uL Hgb 8.7 L (12.0-16.0) g/dL Hct 29.2 L (37.0-47.0) % MCV 100.3 H (81.0-99.0) fL MCH 29.9 (27.0-31.0) pg MCHC 29.8 L (32.0-36.0) g/dL RDW 14.6 (12.0-15.0) % Plt Count 231 (130-450) 10^3/uL MPV 9.9 (7.9-10.8) fL Neut # (Auto) 14.4 H (1.5-6.6) 10^3/uL Lymph # (Auto) 0.4 L (1.5-3.5) 10^3/uL Wright # (Auto) 0.2 (0.0-1.0) 10^3/uL Eos # (Auto) 0.1 (0.0-0.7) 10^3/uL Baso # (Auto) 0.0 (0.0-0.1) 10^3/uL Absolute Nucleated RBC 0.00 x10^3/uL Nucleated RBC % 0.0 /100WBC ESR 41 H (0-30) mm/Hr Sodium 143 (135-145) mmol/L Potassium 4.3 (3.5-5.0) mmol/L Chloride 113 H (101-111) mmol/L Carbon Dioxide 19 L (21-32) mmol/L Anion Gap 11.0 (6-13) BUN 28 H (6-20) mg/dL Creatinine 1.1 H (0.4-1.0) mg/dL Estimated GFR (MDRD) 48 L (>89) Glucose 194 H (70-100) mg/dL Lactic Acid (0.5-2.2) mmol/L Calcium 8.7 (8.5-10.3) mg/dL Magnesium 1.8 (1.7-2.8) mg/dL Total Bilirubin (0.2-1.0) mg/dL AST (10-42) IU/L ALT (10-60) IU/L Alkaline Phosphatase (42-121) IU/L Total Protein (6.7-8.2) g/dL Albumin (3.2-5.5) g/dL Globulin (2.1-4.2) g/dL Albumin/Globulin Ratio (1.0-2.2) Lipase (22-51) U/L Urine Color Urine Clarity (CLEAR) Urine pH (5.0-7.5) PH Ur Specific Graham (1.002-1.030) Urine Protein (NEGATIVE) mg/dL Urine Glucose (UA) (NEGATIVE) mg/dL Urine Ketones (NEGATIVE) mg/dL Urine Occult Blood (NEGATIVE) Urine Nitrite (NEGATIVE) Urine Bilirubin (NEGATIVE) Urine Urobilinogen (NORMAL) E.U./dL Ur Leukocyte Esterase (NEGATIVE) Urine RBC (0-5) /HPF Urine WBC (0-5) /HPF Ur Squamous Epith Cells (<= Few) Urine Bacteria (None Seen) /HPF Urine Casts /LPF Ur Microscopic Review Urine Culture Comments 01/25/19 01/25/19 01/25/19 Range/Units 17:22 15:55 15:40 WBC (4.8-10.8) x10^3/uL RBC (4.20-5.40) 10^6/uL Hgb (12.0-16.0) g/dL Hct (37.0-47.0) % MCV (81.0-99.0) fL MCH (27.0-31.0) pg MCHC (32.0-36.0) g/dL RDW (12.0-15.0) % Plt Count (130-450) 10^3/uL MPV (7.9-10.8) fL Neut # (Auto) (1.5-6.6) 10^3/uL Lymph # (Auto) (1.5-3.5) 10^3/uL Wright # (Auto) (0.0-1.0) 10^3/uL Eos # (Auto) (0.0-0.7) 10^3/uL Baso # (Auto) (0.0-0.1) 10^3/uL Absolute Nucleated RBC x10^3/uL Nucleated RBC % /100WBC ESR (0-30) mm/Hr Sodium 139 (135-145) mmol/L Potassium 3.6 (3.5-5.0) mmol/L Chloride 109 (101-111) mmol/L Carbon Dioxide 19 L (21-32) mmol/L Anion Gap 11.0 (6-13) BUN 31 H (6-20) mg/dL Creatinine 1.3 H (0.4-1.0) mg/dL Estimated GFR (MDRD) 40 L (>89) Glucose 127 H (70-100) mg/dL Lactic Acid 0.7 (0.5-2.2) mmol/L Calcium 8.8 (8.5-10.3) mg/dL Magnesium (1.7-2.8) mg/dL Total Bilirubin 0.4 (0.2-1.0) mg/dL AST 17 (10-42) IU/L ALT 14 (10-60) IU/L Alkaline Phosphatase 83 (42-121) IU/L Total Protein 5.8 L (6.7-8.2) g/dL Albumin 3.1 L (3.2-5.5) g/dL Globulin 2.7 (2.1-4.2) g/dL Albumin/Globulin Ratio 1.1 (1.0-2.2) Lipase 20 L (22-51) U/L Urine Color YELLOW Urine Clarity CLEAR (CLEAR) Urine pH 5.0 (5.0-7.5) PH Ur Specific Graham 1.010 (1.002-1.030) Urine Protein NEGATIVE (NEGATIVE) mg/dL Urine Glucose (UA) NEGATIVE (NEGATIVE) mg/dL Urine Ketones TRACE (NEGATIVE) mg/dL Urine Occult Blood NEGATIVE (NEGATIVE) Urine Nitrite NEGATIVE (NEGATIVE) Urine Bilirubin NEGATIVE (NEGATIVE) Urine Urobilinogen 0.2 (NORMAL) (NORMAL) E.U./dL Ur Leukocyte Esterase TRACE H (NEGATIVE) Urine RBC None Seen (0-5) /HPF Urine WBC 0-3 (0-5) /HPF Ur Squamous Epith Cells MOD Squamous H (<= Few) Urine Bacteria None Seen (None Seen) /HPF Urine Casts 0-2 Hyaline Casts /LPF Ur Microscopic Review INDICATED Urine Culture Comments NOT INDICATED 01/25/19 Range/Units 15:40 WBC 16.0 H (4.8-10.8) x10^3/uL RBC 3.01 L (4.20-5.40) 10^6/uL Hgb 8.8 L (12.0-16.0) g/dL Hct 29.6 L (37.0-47.0) % MCV 98.3 (81.0-99.0) fL MCH 29.2 (27.0-31.0) pg MCHC 29.7 L (32.0-36.0) g/dL RDW 14.6 (12.0-15.0) % Plt Count 218 (130-450) 10^3/uL MPV 9.3 (7.9-10.8) fL Neut # (Auto) 14.5 H (1.5-6.6) 10^3/uL Lymph # (Auto) 0.7 L (1.5-3.5) 10^3/uL Wright # (Auto) 0.7 (0.0-1.0) 10^3/uL Eos # (Auto) 0.0 (0.0-0.7) 10^3/uL Baso # (Auto) 0.0 (0.0-0.1) 10^3/uL Absolute Nucleated RBC 0.00 x10^3/uL Nucleated RBC % 0.0 /100WBC ESR (0-30) mm/Hr Sodium (135-145) mmol/L Potassium (3.5-5.0) mmol/L Chloride (101-111) mmol/L Carbon Dioxide (21-32) mmol/L Anion Gap (6-13) BUN (6-20) mg/dL Creatinine (0.4-1.0) mg/dL Estimated GFR (MDRD) (>89) Glucose (70-100) mg/dL Lactic Acid (0.5-2.2) mmol/L Calcium (8.5-10.3) mg/dL Magnesium (1.7-2.8) mg/dL Total Bilirubin (0.2-1.0) mg/dL AST (10-42) IU/L ALT (10-60) IU/L Alkaline Phosphatase (42-121) IU/L Total Protein (6.7-8.2) g/dL Albumin (3.2-5.5) g/dL Globulin (2.1-4.2) g/dL Albumin/Globulin Ratio (1.0-2.2) Lipase (22-51) U/L Urine Color Urine Clarity (CLEAR) Urine pH (5.0-7.5) PH Ur Specific Graham (1.002-1.030) Urine Protein (NEGATIVE) mg/dL Urine Glucose (UA) (NEGATIVE) mg/dL Urine Ketones (NEGATIVE) mg/dL Urine Occult Blood (NEGATIVE) Urine Nitrite (NEGATIVE) Urine Bilirubin (NEGATIVE) Urine Urobilinogen (NORMAL) E.U./dL Ur Leukocyte Esterase (NEGATIVE) Urine RBC (0-5) /HPF Urine WBC (0-5) /HPF Ur Squamous Epith Cells (<= Few) Urine Bacteria (None Seen) /HPF Urine Casts /LPF Ur Microscopic Review Urine Culture Comments ABX Reporting Has patient been on IV antibiotics over the past 48 hours?: Yes Assessment/Plan - Problem List (1) Headache Impression: 01/26 pt report she has no more headache. she denies vision change. her left scalp tenderness is resolved. CT of head was unremarkable. ESR is 41. Tylenol PRN pt has steroid to treat for her COPD exacerbation (2) Pneumonia Conclusion/Plan: 01/26 now pt has 96% sat on room air, she has no cough, no fever. WBC is slight down from 16 to 15, but pt also use steroid for COPD Ceftriaxone and Azithromycin to cover for community acquired pneumonia blood culture is negative preliminary (3) Acute kidney injury improved. creatinine is down to 1.1 from 1.3 at the admission continue gently IV hydration Monitor renal function and urine output (4) Hypertension Conclusion/Plan: stable. reconcile home medications as blood pressure tolerates (5) Hyperlipidemia Conclusion/Plan: Stable. Continue home statin (6) COPD exacerbation Conclusion/Plan: 01/26 pt present wheezing at the admission on bilateral lobes. today her wheezing sound is better slight reduced solu-metrol from 40mg tid to 30 mg tid continue Duonebs, albuterol PRN Monitor respiratory status (7) weakness pt report she can not walk now. she usually can walk with walker. she feel very weakness consult with PT/OT, will followup
[2019-01-26] MEDS: IPRATROPIUM/ALBUTEROL 3 ML NEB INH PRN (15:37)
[2019-01-26] MEDS ORDERED: ALPRAZolam 0.25 MG TABLET PO PRN (18:13)
[2019-01-26] MEDS: hydrALAZINE 25 MG TABLET PO SCH (22:07)
[2019-01-26] MEDS: LISINOPRIL 20 MG TABLET PO SCH (22:08)
[2019-01-27] MEDS: MORPHINE 2 MG/ML CARPUJECT IVP PRN ×4 (03:38→18:37)
[2019-01-27] MEDS: HYDROcod/ACETAM 10 MG/325 MG TABLET PO PRN ×2 (05:54→21:02)
[2019-01-27] MEDS: methylPREDNISolone SUCCINATE 40 MG/ML VIAL IVP SCH (05:55)
[2019-01-27] MEDS: hydrALAZINE 25 MG TABLET PO SCH ×3 (05:55→21:02)
[2019-01-27 06:34] LABS: BASOPHILS % (AUTO) 0.1 %; HGB - HEMOGLOBIN 8.6 g/dL (12.0-16.0); LYMPHOCYTES # (AUTO) 0.6 10^3/uL (1.5-3.5); MEAN CORPUSCULAR HEMOGLOBIN 30.1 pg (27.0-31.0); MEAN CORPUSCULAR HGB CONC 30.3 g/dL (32.0-36.0); MEAN CORPUSCULAR VOLUME 99.3 fL (81.0-99.0); MEAN PLATELET VOLUME 10.6 fL (7.9-10.8); MONOCYTES # (AUTO) 0.5 10^3/uL (0.0-1.0); MONOCYTES % (AUTO) 3.3 %; NEUTROPHILS % (AUTO) 91.9 %; PLT - PLATELET COUNT 293 10^3/uL (130-450); RED BLOOD COUNT 2.86 10^6/uL (4.20-5.40); RED CELL DISTRIBUTION WIDTH 14.9 % (12.0-15.0); WHITE BLOOD COUNT 15.3 x10^3/uL (4.8-10.8)
[2019-01-27] MEDS: SODIUM CHLORIDE 0.9% 1,000 ML IV SCH (07:06)
[2019-01-27 07:22] LABS: CALCIUM 9.6 mg/dL (8.5-10.3); CREATININE 0.9 mg/dL (0.4-1.0)
[2019-01-27] MEDS ORDERED: INSULIN ASPART 300 UNIT/3 ML PEN SUBQ ONE (07:31)
[2019-01-27] MEDS ORDERED: ALBUTEROL SULF 0.5% 20ML SOLUTION INH ONE (07:33)
[2019-01-27] MEDS ORDERED: SODIUM POLYSTYRENE SULFONATE 15 GM/60 ML BOTTLE PO ONE (07:40)
[2019-01-27] MEDS ORDERED: SODIUM CHLORIDE INHALATION 3 ML NEB ONE (07:57)
[2019-01-27] MEDS ORDERED: DEXTROSE 5%-0.45% NACL 1,000 ML IV SCH (08:00)
[2019-01-27] MEDS: POLYETHYLENE GLYCOL 3350 17 GM PACKET PO SCH (08:37)
[2019-01-27] MEDS: METOPROLOL SUCCINATE 50 MG TABLET PO SCH (08:38)
[2019-01-27] MEDS: ASPIRIN 325 MG TABLET PO SCH (08:38)
[2019-01-27] MEDS: LISINOPRIL 20 MG TABLET PO SCH ×2 (08:38→21:02)
[2019-01-27] MEDS: FAMOTIDINE 20 MG TABLET PO SCH (08:38)
[2019-01-27] MEDS: ESCITALOPRAM 10 MG TABLET PO SCH (08:38)
[2019-01-27] MEDS: amLODIPine 5 MG TABLET PO SCH (08:38)
[2019-01-27] MEDS: ENOXAPARIN 40 MG/0.4 ML SYRINGE SUBQ SCH (08:38)
[2019-01-27] MEDS: AZITHROMYCIN INJ 500 MG in SODIUM CHLORIDE 0.9% 250 ML IV SCH (09:01)
[2019-01-27] MEDS: SODIUM CHLORIDE FLUSH 0.9% 10 ML SYRINGE IVP SCH ×2 (09:02→18:12)
[2019-01-27] MEDS: cefTRIAXone 1 GM in SODIUM CHLORIDE 0.9% MINIBAG 100 ML IV SCH (10:44)
[2019-01-27] MEDS: predniSONE 20 MG TABLET PO SCH (10:46)
[2019-01-27] MEDS: IPRATROPIUM/ALBUTEROL 3 ML NEB INH PRN ×2 (14:46→21:16)
--- NOTE | 2019-01-27 16:43 | PROVIDER PROGRESS NOTE ---
Subjective - Prog Note Date Prog Note Date: 01/27/19 - Subjective Pt reports feeling: No change Subjective: pt has profound weakness today. pt barely can sit the edge of the bed. PT report she need more training because of her weakness, per PT's assessment. PT will work with pt. pt has potassium at 6.4, significant hyperkalemia. pt denies chest pain, pal pitation, shortness of breath, headache, vision change. she also denies fever, chill. pt also present significant anxiety, her hands present shaking, and tremor, when PT try to work with her Current Medications - Current Medications Current Medications: Active Medications Acetaminophen (Tylenol) 650 mg PO Q4HR PRN PRN Reason: Pain 1 to 4 Acetaminophen/Butalbital/Caffeine (Fioricet) 1 - 2 tab PO PRN PRN PRN Reason: HEADACHE Last Admin: 01/25/19 20:00 Dose: 1 tab Hydrocodone Bitart/Acetaminophen ([place] 10 Mg/325 Mg) 1 tab PO Q6H PRN PRN Reason: PAIN Last Admin: 01/27/19 05:54 Dose: 1 tab Albuterol () 2.5 mg INH RTQ4H PRN PRN Reason: Wheezing Albuterol/Ipratropium (Duoneb) 3 ml INH RTQID PRN PRN Reason: Wheezing Last Admin: 01/27/19 14:46 Dose: 3 ml Alprazolam (Xanax) 0.25 mg PO BID [facility] Amlodipine Besylate (Norvasc) 5 mg PO DAILY [facility] Last Admin: 01/27/19 08:38 Dose: 5 mg Aspirin (Maranda) 325 mg PO DAILY [facility] Last Admin: 01/27/19 08:38 Dose: 325 mg Azithromycin (Zithromax) 250 mg PO DAILY [facility] Enoxaparin Sodium (Lovenox) 40 mg SUBQ DAILY [facility] Last Admin: 01/27/19 08:38 Dose: 40 mg Escitalopram Oxalate (Lexapro) 20 mg PO DAILY [facility] Last Admin: 01/27/19 08:38 Dose: Not Given Famotidine (Pepcid) 20 mg PO DAILY [facility] Last Admin: 01/27/19 08:38 Dose: 20 mg Hydralazine HCl (Apresoline) 25 mg PO TID [facility] Last Admin: 01/27/19 13:45 Dose: 25 mg Ceftriaxone Sodium 1 gm/ (Sodium Chloride) 100 mls @ 200 mls/hr IV Q24H [facility] Last Infusion: 01/27/19 11:16 Dose: Infused Sodium Chloride (Normal Saline 0.9%) 1,000 mls @ 75 mls/hr IV .[id number] [facility] Lisinopril (Zestril) 20 mg PO BID [facility] Last Admin: 01/27/19 08:38 Dose: 20 mg Metoprolol Succinate (Toprol Xl) 100 mg PO DAILY [facility] Last Admin: 01/27/19 08:38 Dose: 100 mg Morphine Sulfate (Morphine (Carpuject)) 1 mg IVP Q4HR PRN PRN Reason: PAIN Last Admin: 01/27/19 13:44 Dose: 1 mg Nitroglycerin (Nitrostat) 0.4 mg SL PRN PRN PRN Reason: Chest Pain Ondansetron HCl (Zofran Inj) 4 mg IVP Q6HR PRN PRN Reason: Nausea / Vomiting Polyethylene Glycol (Miralax) 17 gm PO DAILY [facility] Last Admin: 01/27/19 08:37 Dose: 17 gm Prednisone (Deltasone) 30 mg PO DAILYWM [facility] Last Admin: 01/27/19 10:46 Dose: 30 mg Sodium Chloride (Normal Saline Flush 0.9%) 10 ml IVP PRN PRN PRN Reason: NEEDED PER PROVIDER ORDERS Last Admin: 01/26/19 15:20 Dose: 10 ml Sodium Chloride (Normal Saline Flush 0.9%) 10 ml IVP 0100,0900,1700 [facility] Last Admin: 01/27/19 09:02 Dose: Not Given Alprazolam [Xanax] 0.25 mg PO BID PRN 09/18/13 Dexlansoprazole [Dexilant] 60 mg PO BID 09/18/13 HYDROcodone/ACET 10/325 [[place] 10 mg/325 mg] 1 tab PO Q6H PRN 10/25/17 Metoclopramide [Reglan] 10 mg PO TID 10/25/17 Metoprolol Succinate [Toprol Xl] 100 mg PO DAILY 10/25/17 amLODIPine [Norvasc] 5 mg PO DAILY 10/25/17 Cyanocobalamin (Vitamin B-12) [Cyanocobalamin Injection] 1,000 mcg IM Q14D 01/26/18 Hydralazine HCl 25 mg PO TID 01/26/18 Ibuprofen 200 mg PO Q6H PRN 01/26/18 Acetaminophen 325 mg PO Q6HR PRN 01/25/19 Aspirin 325 mg PO DAILY 01/25/19 Fluticasone Propionate [Flovent Hfa] 1 puffs IN BID 01/25/19 Lisinopril 20 mg PO BID 01/25/19 Polyethylene Glycol 3350 [Miralax] 17 gm PO DAILY PRN 01/25/19 Sennosides [Senna] 17.2 mg PO QPM PRN 01/26/19 Objective - Vital Signs/Intake & Output Reviewed Vital Signs: Yes Vital Signs: Vital Signs x48h Temp Pulse Pulse Resp Resp BP BP 01/27/19 15:47 36.7 C 74 20 154/71 H 01/27/19 14:46 63 20 01/27/19 12:10 12 01/27/19 11:33 36.9 C 72 16 156/61 H 01/27/19 10:43 117/84 H 01/27/19 10:40 148/86 H 01/27/19 09:55 136/53 H Pulse Ox Pulse Ox 01/27/19 15:47 97 01/27/19 14:46 01/27/19 12:10 96 01/27/19 11:33 95 01/27/19 10:43 01/27/19 10:40 01/27/19 09:55 Intake & Output: Intake & Output 01/24/19 01/25/19 01/26/19 01/27/19 23:59 23:59 23:59 23:59 Intake Total 1700 3547 2695 Output Total 1940 1250 Balance 1700 1607 1445 - Objective General Appearance: positive: No acute distress, Alert. negative: Lethargic Eyes Bilateral: positive: Normal inspection, PERRL, No lid inflammation, Conjunctivae nml ENT: positive: ENT inspection nml, Pharynx nml, No signs of dehydration. negative: Purulent nasal drainage, Pharyngeal erythema Neck: positive: Nml inspection, Thyroid nml, No JVD, Trachea midline. negative: Thyromegaly, Lymphadenopathy (R), Lymphadenopathy (L), Stiff neck, Swelling/bruising, Tracheal deviation Respiratory: positive: Chest non-tender, No respiratory distress, Breath sounds nml. negative: Wheezes, Rales, Rhonchi Cardiovascular: positive: Regular rate & rhythm, No murmur, No gallop. negative: Irregularly irregular, Extrasystoles, Tachycardia, Bradycardia, JVD present, Systolic murmur, Diastolic murmur Peripheral Pulses: 2+ Radial (R), 2+ Radial (L), 2+ Dorsalis pedis (R), 2+ Dorsalis pedis (L) Abdomen: positive: Non-tender, No organomegaly, Nml bowel sounds, No distention. negative: Tenderness, Guarding, Rebound Back: positive: Nml inspection. negative: CVA tenderness (R), CVA tenderness (L) Skin: positive: Color nml, No rash, Warm, Dry. negative: Cyanosis, Diaphoresis, Pallor, Skin rash Extremities: positive: Non-tender, Full ROM, Nml appearance. negative: Calf tenderness, Joint swelling, Shine's sign/cords Neurologic/Psychiatric: positive: Oriented x3, Sensation nml, Mood/affect nml. negative: Weakness, Sensory loss, Facial droop, Slurred/abnml speech, Depressed mood/affect - Lab Results Fish Bones: 01/27/19 06:18 01/27/19 12:03 Other Labs: Lab Results x24hrs 01/27/19 01/27/19 01/27/19 Range/Units 12:03 06:18 06:18 WBC 15.3 H (4.8-10.8) x10^3/uL RBC 2.86 L (4.20-5.40) 10^6/uL Hgb 8.6 L (12.0-16.0) g/dL Hct 28.4 L (37.0-47.0) % MCV 99.3 H (81.0-99.0) fL MCH 30.1 (27.0-31.0) pg MCHC 30.3 L (32.0-36.0) g/dL RDW 14.9 (12.0-15.0) % Plt Count 293 (130-450) 10^3/uL MPV 10.6 (7.9-10.8) fL Neut # (Auto) 14.0 H (1.5-6.6) 10^3/uL Lymph # (Auto) 0.6 L (1.5-3.5) 10^3/uL [place] # (Auto) 0.5 (0.0-1.0) 10^3/uL Eos # (Auto) 0.0 (0.0-0.7) 10^3/uL Baso # (Auto) 0.0 (0.0-0.1) 10^3/uL Absolute Nucleated RBC 0.00 x10^3/uL Nucleated RBC % 0.0 /100WBC Sodium 143 (135-145) mmol/L Potassium 4.8 6.4 H* (3.5-5.0) mmol/L Chloride 114 H (101-111) mmol/L Carbon Dioxide 20 L (21-32) mmol/L Anion Gap 9.0 (6-13) BUN 31 H (6-20) mg/dL Creatinine 0.9 (0.4-1.0) mg/dL Estimated GFR (MDRD) 61 L (>89) Glucose 149 H (70-100) mg/dL Calcium 9.6 (8.5-10.3) mg/dL ABX Reporting Has patient been on IV antibiotics over the past 48 hours?: Yes Assessment/Plan - Problem List (1) Headache Impression: 01/27 pt report headache today. she denies vision change or scalp tenderness. she report she had chronic headache. CT of head was unremarkable reconcile her home [facility], nurse support 01/26 pt report she has no more headache. she denies vision change. her left scalp tenderness is resolved. CT of head was unremarkable. ESR is 41. Tylenol PRN pt has steroid to treat for her COPD exacerbation (2) Pneumonia Conclusion/Plan: 01/27 improved. pt has 97% sat on room air, continue antibiotics, reduced Azithyromycin to 250mg now since it already was given to pt two dosage of 500 mg 01/26 now pt has 96% sat on room air, she has no cough, no fever. WBC is slight down from 16 to 15, but pt also use steroid for COPD Ceftriaxone and Azithromycin to cover for community acquired pneumonia blood culture is negative preliminary (3) Acute kidney injury 01/27, significant improved. now creatinine is 0.9 now keep hydration, but precaution of fluid overload lab monitor improved. creatinine is down to 1.1 from 1.3 at the admission continue gently IV hydration Monitor renal function and urine output (4) Hypertension Conclusion/Plan: stable. reconcile home medications as blood pressure tolerates (5) Hyperlipidemia Conclusion/Plan: Stable. Continue home statin (6) COPD exacerbation Conclusion/Plan: 01/27 improved, barely can hear wheezing now reduced to predinsone to 30 mg daily, wane off gradually. continue breath treatment as needed 01/26 pt present wheezing at the admission on bilateral lobes. today her wheezing sound is better slight reduced solu-metrol from 40mg tid to 30 mg tid continue Duonebs, albuterol PRN Monitor respiratory status (7) weakness 01/27 pt present weakness significantly today. PT will evaluate and treat pt, will followup recommendations pt report she can not walk now. she usually can walk with walker. she feel very weakness consult with PT/OT, will followup (8)hyperkalemia 01/27 pt has 6.4 potassium level, unknown etiology. pt denies chest pain, palpitation. treat with insulin, Albuterol, Kayetrate recheck potassium again EKG reveals unremarkable (9) anxiety 01/27 pt report she has lots anxiety, pt has hx of anxiety. pt has PRN Xanax but the meds was not given to pt. schedule Xanax meds to pt
[2019-01-27] MEDS ORDERED: SODIUM CHLORIDE 0.9% 1,000 ML IV SCH (17:00)
[2019-01-27] MEDS: ALPRAZolam 0.25 MG TABLET PO SCH (21:02)
[2019-01-27] MEDS: FLUTICASONE NASAL SPRAY NAS SCH (22:31)
[2019-01-28] MEDS: MORPHINE 2 MG/ML CARPUJECT IVP PRN ×3 (00:12→10:36)
[2019-01-28] MEDS: SODIUM CHLORIDE FLUSH 0.9% 10 ML SYRINGE IVP SCH ×2 (00:13→08:35)
[2019-01-28] MEDS: HYDROcod/ACETAM 10 MG/325 MG TABLET PO PRN ×2 (03:28→09:02)
[2019-01-28] MEDS: SODIUM CHLORIDE FLUSH 0.9% 10 ML SYRINGE IVP PRN (04:52)
[2019-01-28] MEDS: IPRATROPIUM/ALBUTEROL 3 ML NEB INH PRN ×2 (05:47→10:27)
[2019-01-28] MEDS: BUTALB/ACETAM/CAFF 50/325/40MG TABLET PO PRN (05:55)
[2019-01-28] MEDS: hydrALAZINE 25 MG TABLET PO SCH (05:56)
[2019-01-28 06:43] LABS: BASOPHILS % (AUTO) 0.2 %; HGB - HEMOGLOBIN 8.4 g/dL (12.0-16.0); LYMPHOCYTES # (AUTO) 1.2 10^3/uL (1.5-3.5); LYMPHOCYTES % (AUTO) 7.7 %; MEAN CORPUSCULAR HEMOGLOBIN 30.4 pg (27.0-31.0); MEAN CORPUSCULAR HGB CONC 30.8 g/dL (32.0-36.0); MEAN CORPUSCULAR VOLUME 98.9 fL (81.0-99.0); MEAN PLATELET VOLUME 9.5 fL (7.9-10.8); MONOCYTES # (AUTO) 0.8 10^3/uL (0.0-1.0); MONOCYTES % (AUTO) 4.8 %; NEUTROPHILS # (AUTO) 13.8 10^3/uL (1.5-6.6); NEUTROPHILS % (AUTO) 86.1 %; PLT - PLATELET COUNT 249 10^3/uL (130-450); RED BLOOD COUNT 2.76 10^6/uL (4.20-5.40)
[2019-01-28 06:52] LABS: CALCIUM 9.1 mg/dL (8.5-10.3); CREATININE 0.9 mg/dL (0.4-1.0)
[2019-01-28] MEDS: ALPRAZolam 0.25 MG TABLET PO SCH (08:33)
[2019-01-28] MEDS: predniSONE 20 MG TABLET PO SCH (08:33)
[2019-01-28] MEDS: LISINOPRIL 20 MG TABLET PO SCH (08:34)
[2019-01-28] MEDS: amLODIPine 5 MG TABLET PO SCH (08:34)
[2019-01-28] MEDS: METOPROLOL SUCCINATE 50 MG TABLET PO SCH (08:34)
[2019-01-28] MEDS: ASPIRIN 325 MG TABLET PO SCH (08:34)
[2019-01-28] MEDS: FAMOTIDINE 20 MG TABLET PO SCH (08:34)
[2019-01-28] MEDS: ENOXAPARIN 40 MG/0.4 ML SYRINGE SUBQ SCH (08:35)
[2019-01-28] MEDS: POLYETHYLENE GLYCOL 3350 17 GM PACKET PO SCH (08:35)
[2019-01-28] MEDS: FLUTICASONE NASAL SPRAY NAS SCH (08:35)
[2019-01-28] MEDS: ESCITALOPRAM 10 MG TABLET PO SCH (08:35)
[2019-01-28] MEDS ORDERED: AZITHROMYCIN 250 MG TABLET PO SCH (09:00)
[2019-01-28] MEDS: cefTRIAXone 1 GM in SODIUM CHLORIDE 0.9% MINIBAG 100 ML IV SCH (10:31)
[2019-01-28 11:52] VITALS: BP 153/74
--- NOTE | 2019-01-28 13:18 | Discharge Plan ---
Discharge Plan Problem Reviewed?: Yes Disposition: 06 Home Health Service Condition: Poor Prescriptions: cefUROXime axetil [Ceftin] 250 mg PO Q12H #10 tablet predniSONE [Deltasone] 10 mg PO [id number] #15 tab Diet: Regular Activity Restrictions: Activity as Tolerated Shower Restrictions: No (fall precaution) Instruction Topics: Pneumonia, COPD Health Concerns: pneumonia, COPD, and weakness Plan of Treatment: continue antibiotics treatment course. quit cigarette smoking. continue home health PT Care Goals: stabilization of your medical conditions Assessment: assessment as the above Additional Instructions or Follow Up instructions: you may followup your PCP in one week. Should your symptoms return or worsen, you may present ER, call 911 or call your PCP for help Follow-Up Care: Home Health - PT No Smoking: If you smoke, Please STOP! Call for help.
--- NOTE | 2019-01-28 13:23 | DISCHARGE SUMMARY ---
Discharge Summary Discharge Date: 01/28/19 Discharging Provider: GALLEGOS Condition at Discharge: Poor Discharge Disposition: Home Health Service Discharge Facility Name: home - DIAGNOSES Admission Diagnoses: (1) Headache (2) Pneumonia (3) Acute kidney injury (4) Hypertension (5) Hyperlipidemia (6) COPD exacerbation Discharge Diagnoses with Status of Each Condition: (1) Headache resolved. Pt denies headache or vision change (2) Pneumonia stable. 97% sat on room air (3) Acute kidney injury resolved (4) Hypertension stable (5) Hyperlipidemia stable (6) COPD exacerbation stable. 97% sat on room air (7) weakness stable/improved (8)hyperkalemia resolved (9) anxiety stable - HPI History of Present Illness: refer from Dr. Day's HPI on 01/25/19 This is a 78 year old female with a past medical history significant for COPD (not on home oxygen), Hypertension, and prior CVA who presents from home for worsening weakness over the last few days. She states she has become progressively weak. The weakness is generalized but slightly more prominent in her lower extremities. She has had associated fevers, dyspnea, and cough. She tells me that she had what appears to be a loculated effusion/empyema which required a pleurodesis a few years ago. She believes she has pneumonia a few times over the last year but has never gone to the hospital as she has extra prednisone at home which she just takes whenever she feels short of breath. She is also complaining of a headache over the past week which has persisted without improvement despite taking Hydrocodone. The headache is new and located over the left side of her head back to her neck. She has had associated blurry vision of the left eye. In the emergency department, she was found to be hypotensive with systolic's in the 90's. She underwent a CT of the head which was unremarkable given her headache. She did have leukocytosis and an x-ray was concerning for an infiltrate. Her creatinine was elevated compared to her baseline. Give her presenting symptoms and these findings, medicine was consulted for admission. - HOSPITAL COURSE Hospital Course: pt was admitted for weakness, wheezing and cough. pt was found to have PNA, exacerbation of COPD, weakness, and headache. CT of head is unremarkable. pt was treated with antibiotics, low dosage of steroid, PT had evaluation and treatment for pt. After treatment, pt can walk, her sat was 97% on room air. pt is pres cribed antibiotics to finish the treatment course. pt denies any more headache or shortness of breath. pt denies vision change. Pt is arranged to have home health PT - ALLERGIES Allergies/Adverse Reactions: Allergies Allergy/AdvReac Type Severity Reaction Status Date / Time Penicillins Allergy Intermediate Rash Verified 01/26/18 17:15 influenza virus vacc Allergy Rash Verified 01/25/19 16:09 trivalent, split [From Fluzone] diazepam [From Valium] AdvReac Intermediate "run up Verified 01/26/18 17:15 and down the melara" - MEDICATIONS Home Medications: Ambulatory Orders Medication Instructions Recorded Confirmed Alprazolam [Xanax] 0.25 mg PO BID PRN 09/18/13 01/26/19 Dexlansoprazole [Dexilant] 60 mg PO BID 09/18/13 01/25/19 HYDROcodone/ACET 10/325 [[place] 10 1 tab PO Q6H PRN 10/25/17 01/25/19 mg/325 mg] Metoclopramide [Reglan] 10 mg PO TID 10/25/17 01/26/19 Metoprolol Succinate [Toprol Xl] 100 mg PO DAILY 10/25/17 01/25/19 amLODIPine [Norvasc] 5 mg PO DAILY 10/25/17 01/25/19 Cyanocobalamin (Vitamin B-12) 1,000 mcg IM Q14D 01/26/18 01/26/19 [Cyanocobalamin Injection] Hydralazine HCl 25 mg PO TID 01/26/18 01/25/19 Ibuprofen 200 mg PO Q6H PRN 01/26/18 01/25/19 Acetaminophen 325 mg PO Q6HR PRN 01/25/19 01/25/19 Aspirin 325 mg PO DAILY 01/25/19 01/25/19 Fluticasone Propionate [Flovent 1 puffs IN BID 01/25/19 01/25/19 Hfa] Lisinopril 20 mg PO BID 01/25/19 01/25/19 Polyethylene Glycol 3350 [Miralax] 17 gm PO DAILY PRN 01/25/19 01/25/19 Sennosides [Senna] 17.2 mg PO QPM PRN 01/26/19 01/26/19 cefUROXime axetil [Ceftin] 250 mg PO Q12H #10 tablet 01/28/19 predniSONE [Deltasone] 10 mg PO [id number] #15 tab 01/28/19 - PHYSICAL EXAM AT DISCHARGE General Appearance: positive: No acute distress, Alert. negative: Lethargic Eyes Bilateral: positive: Normal inspection, PERRL, No lid inflammation, Conjunctivae nml ENT: positive: ENT inspection nml, Pharynx nml, No signs of dehydration. negative: Purulent nasal drainage, Pharyngeal erythema, Oral lesions Neck: positive: Nml inspection, Thyroid nml, No JVD, Trachea midline. negative: Thyromegaly, Lymphadenopathy (R), Lymphadenopathy (L), Stiff neck, Swelling/bruising, Tracheal deviation Respiratory: positive: Chest non-tender, No respiratory distress, Breath sounds nml. negative: Wheezes, Rales, Rhonchi Cardiovascular: positive: Regular rate & rhythm, No murmur, No gallop. negative: Irregularly irregular, Extrasystoles, Tachycardia, Bradycardia, JVD present, Systolic murmur, Diastolic murmur Peripheral Pulses: positive: 2+ Abdomen: positive: Non-tender, No organomegaly, Nml bowel sounds, No distention. negative: Tenderness, Guarding, Rebound Back: positive: Nml inspection. negative: CVA tenderness (R), CVA tenderness (L) Skin: positive: Color nml, No rash, Warm, Dry. negative: Cyanosis, Diaphoresis, Pallor Extremities: positive: Non-tender, Nml appearance. negative: Calf tenderness, Joint swelling, Shine's sign/cords Neurologic/Psychiatric: positive: Oriented x3, Sensation nml, Mood/affect nml. negative: Weakness, Sensory loss, Facial droop, Slurred/abnml speech, Depressed mood/affect - LABS Result Diagrams: 01/28/19 06:27 01/28/19 06:27 - FOLLOW UP Follow Up: you may followup your PCP in one week. Home health is arranged for pt. Should your symptoms return or worsen, you may present ER, call 911 or call your PCP for help - TIME SPENT Time Spent in Discharge (Minutes): 55
== END 2019-01-28 14:01 | disposition home or self-care (01) ==
LOC: ED 15:18 → INTOOBSV 17:53 → MS2 17:53
PROVIDERS: ADMIT Nurse Practitioner Gerontology; ATTEND Nurse Practitioner Gerontology
DX: R51 Headache (principal); J18.1 Lobar pneumonia, unspecified organism; J44.1 Chronic obstructive pulmonary disease with (acute) exacerbation; J44.0 Chronic obstructive pulmonary disease with (acute) lower respiratory infection; N17.9 Acute kidney failure, unspecified; E87.5 Hyperkalemia; E86.0 Dehydration; F41.9 Anxiety disorder, unspecified; H53.8 Other visual disturbances; I10 Essential (primary) hypertension; E78.5 Hyperlipidemia, unspecified; E11.9 Type 2 diabetes mellitus without complications; F32.9 Major depressive disorder, single episode, unspecified; I25.10 Atherosclerotic heart disease of native coronary artery without angina pectoris; M06.9 Rheumatoid arthritis, unspecified; K21.9 Gastro-esophageal reflux disease without esophagitis; K52.9 Noninfective gastroenteritis and colitis, unspecified; R32 Unspecified urinary incontinence; M81.0 Age-related osteoporosis without current pathological fracture; Z96.649 Presence of unspecified artificial hip joint; Z87.891 Personal history of nicotine dependence; Z79.891 Long term (current) use of opiate analgesic; Z79.1 Long term (current) use of non-steroidal anti-inflammatories (NSAID); Z79.82 Long term (current) use of aspirin; I25.2 Old myocardial infarction; Z86.73 Personal history of transient ischemic attack (TIA), and cerebral infarction without residual deficits
CPT/HCPCS: 36415; 70450; 71045; 80048; 80053; 81001; 83605; 83690; 83735; 84132; 85025; 85651; 87040; 93005; 94640; 96361; 96365; 96366; 96367; 96372; 96375; 96376; 97162; 99284; 99285; A9270; G0378; J0131; J1170; J1650; J7512; J7609; 81003; 87086

== ENCOUNTER 2020-09-01 20:20 | Outpatient (CLI) | payer MEDICARE | END 2020-09-01 20:21 | disposition critical access hospital (66) | LOC: ED 20:20 | DX: R51.9 Headache, unspecified (principal); M54.2 Cervicalgia; R55 Syncope and collapse; R42 Dizziness and giddiness; R53.1 Weakness | CPT/HCPCS: A0425; A0427 ==

== ENCOUNTER 2020-09-01 21:04 | Inpatient (IN) | payer MEDICAID, MEDICARE ==
--- NOTE | 2020-09-01 23:17 | ED Physician Documentation ---
PD HPI SYNCOPE - Stated complaint Stated Complaint: PERRY,NECK PAIN, DIZZY - Chief complaint Chief Complaint: Neuro - History obtained from History obtained from: Patient, EMS - History of Present Illness Witnessed: Unwitnessed Timing - onset: Today (Just prior to calling the ambulance coming to the hospital. She was feeling lightheaded some through the day after onset of headache around 11 this morning.) Duration: Unknown Preceding symptoms: Headache (since 11 am this morning.), Light headed, Generalized weakness. No: Chest pain, Abdominal pain Associated symptoms: Headache, Nausea / vomiting. No: Chest pain, Abdominal pain Contributing factors: Just stood up. 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 denies: Abdominal Pain, Vomiting, Diarrhea (but had soft stool today), Bloody / black stool : denies: Dysuria, Frequency Skin: denies: Abrasion (s), Laceration (s) Neurologic: reports: Generalized weakness (today), Syncope (this evening), Headache (today, without injury.). denies: Focal weakness, Numbness Endocrine: denies: Weight loss, Easy bruising / bleeding PD PAST MEDICAL HISTORY - Past Medical History Cardiovascular: Hypertension, High cholesterol, Coronary artery disease, [place] Respiratory: COPD Neuro: CVA, TIA (2018, with CT report stating possible 1.9mm aneurysm ICA versus normal infundibulum. 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 Cardiovascular: Coronary stent - Present Medications Home Medications: Ambulatory Orders Medication Instructions Recorded Confirmed Dexlansoprazole [Dexilant] 60 mg PO BID 09/18/13 09/01/20 Metoclopramide [Reglan] 10 mg PO TID 10/25/17 09/01/20 Hydralazine HCl 25 mg PO TID 01/26/18 09/01/20 Ibuprofen 200 mg PO Q6H PRN 01/26/18 09/01/20 lisinopriL [Lisinopril] 20 mg PO BID 01/25/19 09/01/20 Escitalopram [Lexapro] 20 mg ORAL DAILY 09/01/20 09/01/20 - Allergies Allergies/Adverse Reactions: Allergies Allergy/AdvReac Type Severity Reaction Status Date / Time Penicillins Allergy Intermediate Rash Verified 09/01/20 21:15 influenza virus vacc Allergy Rash Verified 09/01/20 21:15 trivalent, split [From Fluzone] diazepam [From Valium] AdvReac Intermediate "run up Verified 09/01/20 21:15 and down the melara" - Living Situation Living Situation: reports: Alone Living Arrangement: reports: At home - Social History Does the pt smoke?: Yes Smoking Status: Current some day smoker Does the pt drink ETOH?: No Does the pt have substance abuse?: No - Immunizations Immunizations are current?: Yes - POLST Patient has POLST: No POLST Status: Full Code PD ED PE NORMAL - Vitals Vital signs reviewed: Yes (BP is mild hypotensive on presentation.) - General General: Alert and oriented X 3, No acute distress, Well developed/nourished - HEENT HEENT: Atraumatic, Moist mucous membranes, Pharynx benign - Neck Neck: Supple, no meningeal sign, No adenopathy - Cardiac Cardiac: RRR, No murmur - Respiratory Respiratory: Clear bilaterally - Abdomen Abdomen: Normal bowel sounds, Soft, Non tender, Non distended, No organomegaly - Female Female : Deferred - Rectal Rectal: Other (soft stool in vault that is reddish/brick colored; no melena per se. ) - Back Back: No CVA TTP - Derm Derm: Warm and dry. No: Normal color (pale) - Extremities Extremities: No tenderness to palpate, Normal ROM s pain, No edema, No calf tenderness / cord - Neuro Neuro: Alert and oriented X 3, No motor deficit, Normal speech Eye Opening: Spontaneous Motor: Obeys Commands Verbal: Oriented GCS Score: 15 Results - Vitals Vitals: Vital Signs - 24 hr 09/01/20 09/01/20 09/01/20 21:15 23:00 23:57 Temperature 36.6 C Heart Rate 60 82 81 Respiratory 16 16 16 Rate Blood Pressure 102/54 L 92/56 L 125/58 L O2 Saturation 96 93 97 09/02/20 09/02/20 01:08 01:30 Temperature Heart Rate 76 79 Respiratory 13 17 Rate Blood Pressure 112/51 L 112/81 H O2 Saturation 98 97 Oxygen O2 Source [With Activity] Room air O2 Source [Without Activity] Room air O2 Source Room air - Labs Labs: Microbiology 09/02/20 01:38 Occult Blood - Final Stool Laboratory Tests 09/02/20 09/02/20 09/02/20 00:05 00:05 00:05 WBC 10.7 RBC 2.22 L Hgb 6.6 L* Hct 20.9 L MCV 94.1 MCH 29.7 MCHC 31.6 L RDW 15.9 H Plt Count 268 MPV 9.6 Neut # (Auto) 9.3 H Lymph # (Auto) 0.8 L Winkler # (Auto) 0.6 Eos # (Auto) 0.1 Baso # (Auto) 0.0 Absolute Nucleated RBC 0.00 Nucleated RBC % 0.0 Sodium 130 L Potassium 5.0 Chloride 102 Carbon Dioxide 20 L Anion Gap 8.0 BUN 46 H Creatinine 1.0 Estimated GFR (MDRD) 54 L Glucose 120 H Lactic Acid < 0.3 L Calcium 9.0 Magnesium 2.2 Iron TIBC % Saturation Transferrin Total Bilirubin 0.5 AST 11 ALT < 10 L Alkaline Phosphatase 73 Troponin I High Sens Total Protein 5.9 L Albumin 3.6 Globulin 2.3 Albumin/Globulin Ratio 1.6 Lipase 56 H Nasal Adenovirus (PCR) Nasal B. parapertussis DNA (PCR) Nasal Coronavir 229E PCR Nasal Coronavir HKU1 PCR Nasal Coronavir NL63 PCR Nasal Coronavir OC43 PCR Nasal Enterovir/Rhinovir PCR Nasal Influenza B PCR Nasal Influenza A PCR Nasal Parainfluen 1 PCR Nasal Parainfluen 2 PCR Nasal Parainfluen 3 PCR Nasal Parainfluen 4 PCR Nasal RSV (PCR) Nasal B.pertussis DNA PCR Nasal C.pneumoniae (PCR) Andrea Human Metapneumo PCR Nasal M.pneumoniae (PCR) Nasal SARS-CoV-2 (PCR) Blood Type Blood Type Recheck Antibody Screen Crossmatch IS Only 09/02/20 09/02/20 09/02/20 00:05 00:05 00:05 WBC RBC Hgb Hct MCV MCH MCHC RDW Plt Count MPV Neut # (Auto) Lymph # (Auto) Winkler # (Auto) Eos # (Auto) Baso # (Auto) Absolute Nucleated RBC Nucleated RBC % Sodium Potassium Chloride Carbon Dioxide Anion Gap BUN Creatinine Estimated GFR (MDRD) Glucose Lactic Acid Calcium Magnesium Iron 66 TIBC 412 % Saturation 16 L Transferrin 294 Total Bilirubin AST ALT Alkaline Phosphatase Troponin I High Sens 3.3 Total Protein Albumin Globulin Albumin/Globulin Ratio Lipase Nasal Adenovirus (PCR) Nasal B. parapertussis DNA (PCR) Nasal Coronavir 229E PCR Nasal Coronavir HKU1 PCR Nasal Coronavir NL63 PCR Nasal Coronavir OC43 PCR Nasal Enterovir/Rhinovir PCR Nasal Influenza B PCR Nasal Influenza A PCR Nasal Parainfluen 1 PCR Nasal Parainfluen 2 PCR Nasal Parainfluen 3 PCR Nasal Parainfluen 4 PCR Nasal RSV (PCR) Nasal B.pertussis DNA PCR Nasal C.pneumoniae (PCR) Andrea Human Metapneumo PCR Nasal M.pneumoniae (PCR) Nasal SARS-CoV-2 (PCR) Blood Type Blood Type Recheck O POSITIVE Antibody Screen Crossmatch IS Only 09/02/20 09/02/20 00:33 01:03 WBC RBC Hgb Hct MCV MCH MCHC RDW Plt Count MPV Neut # (Auto) Lymph # (Auto) Winkler # (Auto) Eos # (Auto) Baso # (Auto) Absolute Nucleated RBC Nucleated RBC % Sodium Potassium Chloride Carbon Dioxide Anion Gap BUN Creatinine Estimated GFR (MDRD) Glucose Lactic Acid Calcium Magnesium Iron TIBC % Saturation Transferrin Total Bilirubin AST ALT Alkaline Phosphatase Troponin I High Sens Total Protein Albumin Globulin Albumin/Globulin Ratio Lipase Nasal Adenovirus (PCR) NOT DETECTED Nasal B. parapertussis DNA (PCR) NOT DETECTED Nasal Coronavir 229E PCR NOT DETECTED Nasal Coronavir HKU1 PCR NOT DETECTED Nasal Coronavir NL63 PCR NOT DETECTED Nasal Coronavir OC43 PCR NOT DETECTED Nasal Enterovir/Rhinovir PCR NOT DETECTED Nasal Influenza B PCR NOT DETECTED Nasal Influenza A PCR NOT DETECTED Nasal Parainfluen 1 PCR NOT DETECTED Nasal Parainfluen 2 PCR NOT DETECTED Nasal Parainfluen 3 PCR NOT DETECTED Nasal Parainfluen 4 PCR NOT DETECTED Nasal RSV (PCR) NOT DETECTED Nasal B.pertussis DNA PCR NOT DETECTED Nasal C.pneumoniae (PCR) NOT DETECTED Andrea Human Metapneumo PCR NOT DETECTED Nasal M.pneumoniae (PCR) NOT DETECTED Nasal SARS-CoV-2 (PCR) NOT DETECTED Blood Type O POSITIVE Blood Type Recheck Antibody Screen NEGATIVE Crossmatch IS Only See Detail - Rads (name of study) head CT/CT-A Radiology: Prelim report reviewed (no ICH, no masses, no noted aneurysms. ), See rad report PD MEDICAL DECISION MAKING - ED course Complexity details: reviewed results (He is anemic more than baseline. Stool is guaiac positive per lab. BP is improved with fluids. CT does not show any bleeding aneurysms tumors or acute process.), considered differential (Syncopal episode with hypotension. Will check labs. Her blood pressure does improve with some IV fluids. She is alert and conversant. Not clear the cause of the headache and will check CT), d/w patient Departure - Departure Disposition: 66 [facility] DC/Xfer Clinical Impression: Transient hypotension, Guaiac positive stools, Occipital headache Episode of syncope Qualifiers: Syncope type: unspecified Qualified Code(s): R55 - Syncope and collapse Anemia Qualifiers: Anemia type: unspecified type Qualified Code(s): D64.9 - Anemia, unspecified
[2020-09-01] MEDS ORDERED: ONDANSETRON 4 MG/2 ML VIAL IVP STA (23:36)
[2020-09-01] MEDS ORDERED: MORPHINE 2 MG/ML CARPUJECT IVP STA (23:36)
[2020-09-01] MEDS ORDERED: SODIUM CHLORIDE 0.9% 1,000 ML IV STA (23:36)
[2020-09-02 00:16] LABS: BASOPHILS % (AUTO) 0.2 %; EOSINOPHILS # (AUTO) 0.1 10^3/uL (0.0-0.7); EOSINOPHILS % (AUTO) 0.7 %; HCT - HEMATOCRIT 20.9 % (37.0-47.0); LYMPHOCYTES # (AUTO) 0.8 10^3/uL (1.5-3.5); LYMPHOCYTES % (AUTO) 7.2 %; MEAN CORPUSCULAR HEMOGLOBIN 29.7 pg (27.0-31.0); MEAN CORPUSCULAR HGB CONC 31.6 g/dL (32.0-36.0); MEAN CORPUSCULAR VOLUME 94.1 fL (81.0-99.0); MEAN PLATELET VOLUME 9.6 fL (7.9-10.8); MONOCYTES # (AUTO) 0.6 10^3/uL (0.0-1.0); MONOCYTES % (AUTO) 5.2 %; NEUTROPHILS # (AUTO) 9.3 10^3/uL (1.5-6.6); NEUTROPHILS % (AUTO) 86.3 %; PLT - PLATELET COUNT 268 10^3/uL (130-450); RED BLOOD COUNT 2.22 10^6/uL (4.20-5.40); RED CELL DISTRIBUTION WIDTH 15.9 % (12.0-15.0); WHITE BLOOD COUNT 10.7 x10^3/uL (4.8-10.8)
[2020-09-02 00:17] LABS: HGB - HEMOGLOBIN 6.6 g/dL (12.0-16.0)
[2020-09-02 00:25] LABS: ALBUMIN 3.6 g/dL (3.2-5.5); ALBUMIN/GLOBULIN RATIO 1.6 (1.0-2.2); ALKALINE PHOSPHATASE 73 IU/L (42-121); ALT ALANINE AMINOTRANSFERASE < 10 IU/L (10-60); AST ASPARTATE AMINOTRANSFERASE 11 IU/L (10-42); BILIRUBIN,TOTAL 0.5 mg/dL (0.2-1.0); BUN - BLOOD UREA NITROGEN 46 mg/dL (6-20); CARBON DIOXIDE - CO2 20 mmol/L (21-32); CHLORIDE 102 mmol/L (101-111); GFR - MDRD 54 (>89); GLUCOSE 120 mg/dL (70-100); LIPASE 56 U/L (22-51); MAGNESIUM 2.2 mg/dL (1.7-2.8); SODIUM 130 mmol/L (135-145); TOTAL PROTEIN 5.9 g/dL (6.7-8.2)
[2020-09-02 00:39] LABS: % IRON SATURATION 16 % (20-50); IRON 66 ug/dL (28-170); TOTAL IRON BINDING CAPACITY 412 ug/dL (250-450); TRANSFERRIN 294 mg/dL (192-382)
[2020-09-02] MEDS: IOVERSOL 320 100 ML VIAL IVP ONE ×2 (00:52→18:24)
[2020-09-02] MEDS ORDERED: MORPHINE 2 MG/ML CARPUJECT IVP STA (01:47)
[2020-09-02] MEDS ORDERED: FAMOTIDINE 20 MG/2 ML VIAL IVP STA (01:47)
[2020-09-02] MEDS ORDERED: ACETAMINOPHEN 325 MG TABLET PO STA (01:47)
[2020-09-02 01:59] LABS: CORONAVIRUS 229E-RESP PCR NOT DETECTED; CORONAVIRUS HKU1-RESP PCR NOT DETECTED; CORONAVIRUS NL63-RESP PCR NOT DETECTED; CORONAVIRUS OC43-RESP PCR NOT DETECTED; HUMAN METAPNEUMOVIRUS NOT DETECTED; INFLUENZA A- RESP PCR PANEL NOT DETECTED; RHINOVIRUS/ENTEROVIRUS NOT DETECTED; SARS-CoV-2 -RESP PCR PANEL NOT DETECTED
[2020-09-02 02:00] LABS: B. PARAPERTUSSIS- RESP PCR PAN NOT DETECTED; B. PERTUSSIS- RESP PCR PANEL NOT DETECTED; C. PNEUMONIAE- RESP PCR PANEL NOT DETECTED; INFLUENZA B - RESP PCR PANEL NOT DETECTED; M. PNEUMONIAE- RESP PCR PANEL NOT DETECTED; PARAINFLUENZA VIRUS 1 NOT DETECTED; PARAINFLUENZA VIRUS 2 NOT DETECTED; PARAINFLUENZA VIRUS 3 NOT DETECTED; PARAINFLUENZA VIRUS 4 NOT DETECTED; RSV- RESP PCR PANEL NOT DETECTED
[2020-09-02] MEDS ORDERED: SODIUM CHLORIDE 0.9% 1,000 ML IV STA (02:02)
[2020-09-02] MEDS ORDERED: ONDANSETRON 4 MG/2 ML VIAL IVP PRN (02:05)
[2020-09-02 02:26] LABS: FOLATE 10.62 ng/mL (5.90 - >24.8)
--- NOTE | 2020-09-02 02:47 | HISTORY & PHYSICAL EXAMINATION ---
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 The patient presents to the hospital after an episode of syncope. She reports that she had a headache starting at 11 a.m. today and then felt different and lightheaded all day. Her headache was present when she felt severely lightheaded and then had syncope. She awoke on the floor in her kitchen. The grandson heard her fall and found her down, and helped her get into her recliner, from where she herself was able to contact 911. BP at the scene was 93/51 with a heart rate of 80. She stated the headache was no worse after the syncope. In the ER, she underwent imaging of the head, which showed no area of bleeding. No stroke was visible, no midline shift, and the angiogram portion did not reveal any areas of aneurysm or bleeding reported. In the ER, she was found to have a hemoglobin of 6.6 and her baseline hemoglobin is usually 8-10. Her stool was guaiac positive. Her blood pressure in the ER was 92 systolic. She is being admitted for syncope related to hypotension, likely from a GI bleed causing severe anemia. PAST MEDICAL HISTORY: As described above in sentence number one. ALLERGIES 1. PENICILLIN. 2. INFLUENZA TRIVALENT SHOT. 3. DIAZEPAM. MEDICATIONS 1. Dexilant 60 mg p.o. b.i.d. 2. Lexapro 20 mg daily. 3. Hydralazine 25 mg t.i.d. 4. Motrin 200 mg 4 times a day p.r.n. 5. Lisinopril 20 mg b.i.d. 6. Reglan 10 mg t.i.d. FAMILY HISTORY: No inherited diseases. SOCIAL HISTORY: She is a . 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 She was a smoker for over 50 years, quit approximately two years ago. There is no illicit drug use history and no alcohol abuse history. REVIEW OF SYSTEMS: A comprehensive review of systems was performed and the pertinent positives are listed, the rest are negative. PHYSICAL EXAMINATION GENERAL: Elderly, thin white female. She is in no distress. VITAL SIGNS: Blood pressure now 112/81, heart rate 79 in sinus rhythm, afebrile, room air saturation 97%. HEENT: Unremarkable except for pallor. NECK: No JVD. CHEST: Clear, increased AP diameter. HEART: Distant heart sounds, no murmur. ABDOMEN: Soft, nontender. EXTREMITIES: No clubbing, cyanosis, edema. NEUROLOGIC: Intact. LABORATORY DATA: Sodium 130, potassium 5.0, BUN 46, creatinine 1.0. Lactic acid less than 0.03, magnesium 2.2. Percent iron saturation is low. Lipase elevated at 56. Normal liver function tests. White blood count normal at 10.7, hemoglobin 6.6 and her usual is 8-9 over the last two years. Platelet count normal at 268. No INR was done. Urinalysis shows a trace of leukocyte esterase, but moderate squamous cells. BioFire test showed negative COVID. EKG: Normal sinus rhythm at a rate of 86, early R/S transition and no acute changes. IMAGING: Head CTA preliminary report showed no mass, no midline shift, no hemorrhage or infarct, no aneurysm, no abrupt cutoff or thrombosis and no significant stenoses on the angiogram portion. IMPRESSION/DIAGNOSES 1. Syncope, which is probably related to the hypotension. 2. Hypotension, which is probably caused by the anemia. 3. Anemia, which is probably caused by her gastrointestinal bleed. 4. Gastrointestinal bleed, possibly caused by NSAIDs. 5. Hyponatremia. 6. Elevated lipase. 7. Headache, recurrent. 8. Chronic obstructive pulmonary disease, without exacerbation. 9. History of coronary artery disease. 10. History of hypertension. 11. Old stroke. 12. History of colon cancer. PLAN: Admit the patient to inpatient status on telemetry. Obtain an Echo to evaluate her syncope. Hold her blood pressure medications because of the hypotension and now still a "soft" blood pressure. Continue with gentle IV hydration. Two units of blood have been typed and crossed, and we will order them for transfusion. Follow her hemoglobin every 12 hours. Start empiric IV Protonix for ulcer treatment. Follow her electrolytes daily. Hold the aspirin. Obtain General Surgery consult for an EGD. In preparation for this, we will order just a clear liquid diet. We will order no out of bed until her vital signs and her hemoglobin stabilize. Follow the Lipase, a probable phase- reactant. DEEP VENOUS THROMBOSIS PROPHYLAXIS: SCDs or compression stockings. CODE STATUS: FULL CODE. ATTESTATION: Patient is expected to be discharged or transferred to another facility within 96 hours: Yes. cc: Daniella Melton MD TD: 09/02/2020 02:30 MTDD
[2020-09-02] MEDS ORDERED: D5NS W/20 MEQ KCL 1,000 ML IV SCH (03:00)
[2020-09-02] MEDS: SODIUM CHLORIDE FLUSH 0.9% 10 ML SYRINGE IVP PRN (04:21)
[2020-09-02] MEDS: HYDROmorphone 0.5 MG/0.5 ML SYRINGE IVP PRN ×3 (04:21→16:37)
[2020-09-02] MEDS: ESCITALOPRAM 10 MG TABLET PO SCH (08:28)
[2020-09-02] MEDS: PANTOPRAZOLE 40 MG VIAL IVP SCH ×2 (08:33→20:24)
[2020-09-02] MEDS: SODIUM CHLORIDE FLUSH 0.9% 10 ML SYRINGE IVP SCH ×2 (08:36→19:14)
[2020-09-02] MEDS: oxyCODONE 5 MG TABLET PO PRN ×3 (08:56→20:28)
[2020-09-02] MEDS ORDERED: DEXLANSOPRAZOLE 60 MG PO SCH (09:00)
[2020-09-02] MEDS ORDERED: CYANOCOBALAMIN 1,000 MCG/ML VIAL IM ONE (10:05)
[2020-09-02] MEDS ORDERED: IOVERSOL 320 100 ML VIAL IVP ONE ×2 (11:11)
[2020-09-02] MEDS: SODIUM CHLORIDE 0.9% 1,000 ML IV SCH ×2 (11:16→22:21)
--- NOTE | 2020-09-02 12:11 | CT Report ---
PROCEDURE: ANGIO HEAD W/WO INDICATIONS: abrupt headache 11 am today; h/o aneurysm CONTRAST: IV CONTRAST: Optiray 320 ml: 80 PO CONTRAST: *NO PO CONTRAST TECHNIQUE: Precontrast 4.5 mm thick angled axial sections acquired from the foramen magnum to the vertex. Afte r the administration of intravenous contrast, 1 mm thick sections acquired through the [place] of [place] is. Postcontrast 4.5 mm thick sections then re-acquired from the foramen magnum to the vertex. 3-di mensional lefcdko-bocpvkryz-xdcixwvbxa (MIP) and/or volume rendering reformats were acquired of the c entral intracranial vasculature. For radiation dose reduction, the following was used: automated ex posure control, adjustment of mA and/or kV according to patient size. COMPARISON: CT head 01/15/2019, CTA head and neck 10/24/2017 FINDINGS: Image quality: Excellent. The ventricular system and cortical sulci demonstrate atrophy, consistent for patient's stated age. There are areas of hypodensity in the periventricular and subcortical white matter. There is no acut e intra or extra-axial fluid collection. No acute hemorrhage, mass lesion or midline shift. Brainst em is unremarkable. Globes are symmetrical. Sinuses are aerated. Osseous structures are intact. The posterior circulation demonstrates a right vertebral artery dominance. Basilar artery and posteri or cerebral arteries demonstrate no areas of hemodynamically significant stenosis, vascular occlusion or aneurysmal dilation. Posterior communicating arteries are within normal limits. The anterior circulation, including the anterior and middle cerebral arteries, as well as internal ca rotid arteries demonstrates no areas of hemodynamically significant stenosis, vascular occlusion or d issection. It is previously noted an approximate 1 to 2 mm outpouching from the inferomedial aspect o f the right supraclinoid internal carotid artery is again noted, although minimally less prominent. IMPRESSION: 1. No acute intracranial process. 2. Mild atrophy and chronic microvascular ischemic changes. 3. There is a noted approximately 2 mm outpouching from the right supraclinoid internal carotid arter y appears to remain present although slightly less prominent. As previously noted, aneurysm cannot be excluded. The above findings are concordant with preliminary report., CTA head and neck 10/24/2017 Reviewed by: Daniela Murillo MD on 09/02/2020 12:10 PM PST Approved by: Daniela Murillo MD on 09/02/2020 12:10 PM PST Station ID: [id number]
[2020-09-02 12:37] LABS: HCT - HEMATOCRIT 29.1 % (37.0-47.0); HGB - HEMOGLOBIN 9.5 g/dL (12.0-16.0)
[2020-09-02 12:47] LABS: CALCIUM 8.8 mg/dL (8.5-10.3); CREATININE 0.8 mg/dL (0.4-1.0); MAGNESIUM 2.2 mg/dL (1.7-2.8); POTASSIUM 5.3 mmol/L (3.5-5.0)
--- NOTE | 2020-09-02 13:12 | CT Report ---
PROCEDURE: ANGIO NECK W INDICATIONS: neck pain, hx of aneurysm at right internal caroti CONTRAST: IV CONTRAST: Optiray 320 ml: 80 PO CONTRAST: *NO PO CONTRAST TECHNIQUE: After the administration of intravenous contrast, 1.5 mm axial sections acquired from the aortic arch to the [place] of [place]. Coronal 3-D maximum intensity projection (MIP) and/or volume rendering ref ormats were then performed. For radiation dose reduction, the following was used: automated exposur e control, adjustment of mA and/or kV according to patient size. COMPARISON: Correlation is made with the head CT angiogram, 09/01/2020. FINDINGS: Image quality: Excellent. Carotid system: The great vessels demonstrate a conventional anatomy as they arise from the aortic a rc. The aortic arch is minimally aneurysmal, measuring 3.2 cm, within upper limits of normal conside red to be 3 cm. The origins of the common carotid arteries appear patent. The common carotid arterie s demonstrate normal calibers and courses. The bifurcation regions demonstrate atherosclerotic calci fication and irregularity. There is a high-grade stenosis of approximately 90% involving the left pro ximal internal carotid artery. A stenosis of approximately 50% can be seen involving the right proxim al internal carotid artery. The more distal internal carotid arteries are tortuous, and demonstrate n o focal stenosis. There has been described a right supraclinoid internal carotid artery. The aneurysm, which is thought well seen on this study that is optimized for the ventilation portion of the neck. Posterior circulation: The origins of the vertebral arteries appear patent. The more superior porti ons of the vertebral arteries demonstrate normal caliber. The vertebral arteries are tortuous. They j oin to form a normal appearing basilar artery. Soft tissues: Visualized neck soft tissues demonstrate no suspicious abnormalities. The thyroid gla nd is normal in size. Bones: No suspicious bony lesions. Visualized cervical spine appears normally aligned. Degenerati ve changes are seen, including moderate to severe disc space narrowing at the C5-C6 level, with assoc iated endplate irregularity and sclerosis. Milder degenerative changes are seen elsewhere. IMPRESSION: There is a high-grade stenosis of approximately 90% involving the left proximal internal carotid patricia ry. An approximately 50% stenosis can be seen involving the right proximal internal carotid artery. No vertebral artery stenosis can be seen. Incidental note is made of: Tortuosity of the internal carotid arteries and the vertebral arteries Cervical spine degenerative changes, worst at C5-C6. 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 The estimate of stenosis included in the report of the imaging study was calculated using the NASCET method Reviewed by: Elton Baca MD on 09/02/2020 12:11 PM [facility] Approved by: Elton Baca MD on 09/02/2020 12:11 PM [facility] Station ID: [id number]
--- NOTE | 2020-09-02 17:53 | HISTORY & PHYSICAL EXAMINATION ---
Chief Complaint - Chief Complaint Chief Complaint: admitted with dizzyness and found to have significant anemia History of Present Illness - Admitted From Admitted From:: ed - History Obtained From Records Reviewed: yes. limited records available History obtained from: pt Exam Limitations: ? reliability of history - History of Present Illness HPI Comment/Other: She was admitted after a fall and was found to be very anemic. By chart review she has history or surgery for colon cancer. She states she had a colonoscopy 2 years ago in [place] and it was ok. She was taking an nsaid daily. She has not noticed bleeding. She denies upper or lower intestinal symptoms including pain, significant weight loss, difficulty eating, etc History - Past Medical History Cardiovascular: reports: Hypertension, High cholesterol, Coronary artery disease, [place] Respiratory: reports: COPD Neuro: reports: CVA, TIA Endocrine/Autoimmune: reports: Type 2 diabetes GI: reports: GERD, Chronic diarrhea, Other : reports: Incontinence HEENT: reports: None Psych: reports: Depression Musculoskeletal: reports: Rheumatoid arthritis, Osteoporosis Derm: reports: None - Past Surgical History General: reports: Cholecystectomy, Appendectomy, Bowel surgery Ortho: 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 Her Mother had a brain aneurysm. Her two brother was from cancer, one sister from stroke. She had 3 children. Living arrangement: At home Living Situation: Alone Social History Notes: The patient is originally from near the [facility]. She has been living on [facility] for the last 10 years. Her daughter is a respiratory therapist at [employer] and she moved to be closer to her daughter. The patient had 3 daughters 1 of whom has in an unfortunate car accident and the other one has severe congestive heart failure. The patient has been twice and is now . She smoked 1 pack a day for 53 years quit in 2017. She denies any alcohol or drug use. - Substance History Use: Uses substance without health or social issues: NONE - POLST Patient has POLST: No POLST Status: Full Code Meds/Allgy - Home Medications Home Medications: Ambulatory Orders Medication Instructions Recorded Confirmed Dexlansoprazole [Dexilant] 60 mg PO BID 09/18/13 09/01/20 Metoclopramide [Reglan] 10 mg PO TID 10/25/17 09/01/20 Hydralazine HCl 25 mg PO TID 01/26/18 09/01/20 Ibuprofen 200 mg PO Q6H PRN 01/26/18 09/01/20 lisinopriL [Lisinopril] 20 mg PO BID 01/25/19 09/01/20 Escitalopram [Lexapro] 20 mg ORAL DAILY 09/01/20 09/01/20 - Allergies Allergies/Adverse Reactions: Allergies Allergy/AdvReac Type Severity Reaction Status Date / Time Penicillins Allergy Intermediate Rash Verified 09/01/20 21:15 influenza virus vacc Allergy Rash Verified 09/01/20 21:15 trivalent, split [From Fluzone] diazepam [From Valium] AdvReac Intermediate "run up Verified 09/01/20 21:15 and down the melara" Review of Systems - Constitutional Constitutional: reports: Fatigue (10 pt ros as above otherwise unremarkable) Exam - Vital Signs Reviewed Vital Signs: Yes Vital Signs: Vital Signs x48h Temp Pulse Pulse Resp BP BP BP 09/02/20 15:59 36.8 C 63 15 115/48 L 09/02/20 15:00 36.8 C 65 16 131/57 H 09/02/20 11:22 36.4 C L 65 14 92/42 L Pulse Ox 09/02/20 15:59 94 09/02/20 15:00 99 09/02/20 11:22 - Physical Exam General Appearance: positive: No acute distress, Alert Eyes Bilateral: positive: Normal inspection, PERRL, EOMI ENT: positive: No signs of dehydration Neck: positive: No JVD Respiratory: positive: No respiratory distress Abdomen: positive: Non-tender, No distention Conclusion/Plan - Problem List (1) Anemia Conclusion/Plan: She states she is up to date on colon cancer screening. Plan egd tomorrow 09/03 afternoon Qualifiers: Anemia type: unspecified type Qualified Code(s): D64.9 - Anemia, unspecified - Lab Results Fish Bones: 09/02/20 12:32 09/02/20 12:32
[2020-09-02 20:22] LABS: HCT - HEMATOCRIT 29.3 % (37.0-47.0); HGB - HEMOGLOBIN 9.2 g/dL (12.0-16.0)
[2020-09-02] MEDS: ACETAMINOPHEN 325 MG TABLET PO PRN (20:28)
[2020-09-03] MEDS: oxyCODONE 5 MG TABLET PO PRN ×3 (00:17→11:24)
[2020-09-03] MEDS: SODIUM CHLORIDE FLUSH 0.9% 10 ML SYRINGE IVP SCH ×3 (01:00→17:54)
[2020-09-03] MEDS: HYDROmorphone 0.5 MG/0.5 ML SYRINGE IVP PRN ×4 (03:22→22:47)
[2020-09-03] MEDS: ACETAMINOPHEN 325 MG TABLET PO PRN ×3 (03:31→22:27)
[2020-09-03 05:39] LABS: HCT - HEMATOCRIT 28.4 % (37.0-47.0); HGB - HEMOGLOBIN 8.8 g/dL (12.0-16.0); MEAN CORPUSCULAR HEMOGLOBIN 29.4 pg (27.0-31.0); MEAN PLATELET VOLUME 9.3 fL (7.9-10.8); RED BLOOD COUNT 2.99 10^6/uL (4.20-5.40); RED CELL DISTRIBUTION WIDTH 16.8 % (12.0-15.0); WHITE BLOOD COUNT 6.7 x10^3/uL (4.8-10.8)
[2020-09-03 06:17] LABS: CALCIUM 8.5 mg/dL (8.5-10.3); CREATININE 0.7 mg/dL (0.4-1.0); POTASSIUM 5.5 mmol/L (3.5-5.0)
[2020-09-03] MEDS ORDERED: INSULIN REGULAR HUMAN 300 UNIT/3 ML VIAL IVP ONE (06:52)
[2020-09-03] MEDS ORDERED: DEXTROSE 50% ABBOJECT 25 GM/50 ML SYRINGE IVP ONE (06:52)
[2020-09-03] MEDS ORDERED: DEXTROSE 5%-0.9% NACL 1,000 ML IV SCH (08:00)
[2020-09-03] MEDS: PANTOPRAZOLE 40 MG VIAL IVP SCH ×2 (08:13→20:12)
[2020-09-03] MEDS: ESCITALOPRAM 10 MG TABLET PO SCH (08:13)
[2020-09-03] MEDS: SODIUM CHLORIDE FLUSH 0.9% 10 ML SYRINGE IVP PRN (08:17)
--- NOTE | 2020-09-03 11:59 | PROVIDER PROGRESS NOTE ---
Assessment/Plan - Problem List (1) GI bleed Assessment/Plan: Patient Occult stool test is positive for GI bleed. Patient had anemia HGB 6.6 in the admission. Patient had 2 units blood transfusion. Patient hemoglobin still continue to slowly drop. Patient reported he take ibuprofen for his pain. Patient also had elevated BUN. Bleeding is likely Caused by upper GI. Consult with GI surgeon, patient will have EGD on this afternoon. Continue intravenous Protonix, Continue H&H To monitor hemoglobin. (2) Anemia Assessment/Plan: Patient had hemoglobin 6.6 in the admission, Occult stool test is positive. It is more likely from patient GI bleeding. Anemia study show B12 deficiency as well. Patient had a 2 unit blood transfusion. Patient was given intravenous B12. We will continue H&H to monitor patient (3) Syncope Assessment/Plan: Patient's troponin, EKG study, echo study all are unremarkable. Patient has elevated BUN and sightly elevated creatinine. pt Has severe anemia with GI bleed. Patient had hypotension in the admission as well. After the patient was give intravenous IV fluids for dehydration, had 2 unit blood transfusion, patient hypotension was resolved, patient has no syncope hospital. (4) Dehydration Assessment/Plan: Patient has elevated BUN and sightly elevated creatinine. Patient was given intravenous IV fluids. Patient dehydration is improved now. (5) HTN (hypertension) Assessment/Plan: Stable, we will continue home blood pressure medicine (6) Carotid stenosis, left Assessment/Plan: Patient has a history of aneurysm of right internal carotid artery in the admission HPI, and pt complain of neck pain in the admission per pt report. CTA show Approximately 50% stenosis in the right internal carotid artery, No aneurysm found. However CTA of the neck show high-grade stenosis of proximal 90% in left proximal internal carotid artery. Patient has Stroke sentence, patient has no bilaterally or unilaterally weakness Or focal neuro deficits. AT this point, discussed with the patient for further care plan, patient agree for outpatient follow-up with vascular surgeon For further management (7) COPD (chronic obstructive pulmonary disease) Assessment/Plan: Stable, not on exacerbation, We will closely monitor patient respiratory status (8) Hyperkalemia Assessment/Plan: Patient's potassium is gradually increases, potassium 5.5 on today. 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 Current Meds: Current Medications Generic Name Dose Route Start Last Admin Trade Name Freq PRN Reason Stop Dose Admin Acetaminophen 650 mg 09/02/20 02:05 09/03/20 11:24 Acetaminophen 325 Mg Tablet PO 650 mg Q4HR PRN Administration Pain 1 to 4 Escitalopram Oxalate 20 mg 09/02/20 09:00 09/03/20 08:13 Escitalopram 10 Mg Tablet PO 20 mg DAILY ANA Administration Hydromorphone HCl 0.5 mg 09/02/20 02:05 09/03/20 09:51 Hydromorphone 0.5 Mg/0.5 Ml Syringe IVP 0.5 mg Q6H PRN Administration Pain 8 to 10 Dextrose/Sodium Chloride 1,000 mls @ 100 mls/hr 09/03/20 08:00 09/03/20 08:13 D5ns IV 100 mls/hr .Q10H ANA Administration Pantoprazole Sodium 40 mg 09/02/20 09:00 09/03/20 08:13 Pantoprazole 40 Mg Vial IVP 40 mg BID ANA Administration Sodium Chloride 10 ml 09/02/20 02:05 09/03/20 08:17 Sodium Chloride Flush 0.9% 10 Ml Syringe IVP 10 ml PRN PRN Administration NEEDED PER PROVIDER ORDERS Sodium Chloride 10 ml 09/02/20 09:00 09/03/20 08:17 Sodium Chloride Flush 0.9% 10 Ml Syringe IVP 10 ml 0100,0900,1700 ANA Administration - Lab Result Fish Bone Diagrams: 09/03/20 05:07 09/03/20 05:07 - Additional Planning My Orders: My Active Orders 09/03/20 00:01 NPO except Meds at Midnight [DIET] 09/03/20 08:00 Dextrose 5%-0.9% NaCl [D5ns] 1,000 ml IV 100 mls/hr 09/03/20 11:27 HYDROcod/ACETAM 5/325 [[place] 5/325] 1 tab PO Q4HR PRN 09/03/20 13:00 H&H [HEMOGLOBIN AND HEMATOCRIT] [HEME] Q8H 09/03/20 21:00 H&H [HEMOGLOBIN AND HEMATOCRIT] [HEME] Q8H Subjective - Subjective Patient Reports: Feeling Better Objective Vital Signs: Vital Signs - 24 hr 09/02/20 09/02/20 09/02/20 15:00 15:59 19:20 Temperature 36.8 C 36.8 C 36.8 C Heart Rate [ 65 63 70 Brachial] Respiratory 16 15 16 Rate Blood Pressure 115/48 L 95/53 L [Left Brachial artery] Blood Pressure 131/57 H [Right Brachial artery] O2 Saturation 99 94 92 09/02/20 09/02/20 09/03/20 19:47 21:00 01:00 Temperature 36.8 C 36.9 C Heart Rate [ 69 69 Brachial] Respiratory 16 17 Rate Blood Pressure 101/64 [Left Brachial artery] Blood Pressure 100/58 L [Right Brachial artery] O2 Saturation 94 93 93 09/03/20 09/03/20 09/03/20 03:00 04:30 05:20 Temperature 36.9 C 36.9 C Heart Rate [ 75 69 67 Brachial] Respiratory 14 16 16 Rate Blood Pressure 131/57 H 120/40 L [Left Brachial artery] Blood Pressure 136/55 H [Right Brachial artery] O2 Saturation 95 93 94 09/03/20 09/03/20 07:29 11:42 Temperature 36.5 C 37 C Heart Rate [ 65 67 Brachial] Respiratory 14 16 Rate Blood Pressure 137/50 H 128/53 L [Left Brachial artery] Blood Pressure [Right Brachial artery] O2 Saturation 94 97 Oxygen O2 Source [With Activity] Room air O2 Source [Without Activity] Room air O2 Source Room air I&O (Last 24 Hrs): Intake and Output Totals x24h 09/01/20 09/02/20 09/03/20 23:59 23:59 23:59 Intake Total 4590 1000 Output Total 700 100 Balance 3890 900 General: Alert, Oriented x3, Cooperative, No acute distress HEENT: Atraumatic Neck: Supple Lymphatic: no adenopathy Neuro: Alert, Non Focal, Oriented Times 3 Cardiovascular: Regular rate, Normal S1 Respiratory: Chest non-tender, No respiratory distress Abdomen: Normal bowel sounds, Soft, No tenderness Extremities: Normal pulses - Results Results: Laboratory Results WBC 6.7 x10^3/uL (4.8-10.8) 09/03/20 05:07 RBC 2.99 10^6/uL (4.20-5.40) L 09/03/20 05:07 Hgb 8.8 g/dL (12.0-16.0) L 09/03/20 05:07 Hct 28.4 % (37.0-47.0) L 09/03/20 05:07 MCV 95.0 fL (81.0-99.0) 09/03/20 05:07 MCH 29.4 pg (27.0-31.0) 09/03/20 05:07 MCHC 31.0 g/dL (32.0-36.0) L 09/03/20 05:07 RDW 16.8 % (12.0-15.0) H 09/03/20 05:07 Plt Count 233 10^3/uL (130-450) 09/03/20 05:07 MPV 9.3 fL (7.9-10.8) 09/03/20 05:07 Neut # (Auto) 9.3 10^3/uL (1.5-6.6) H 09/02/20 00:05 Lymph # (Auto) 0.8 10^3/uL (1.5-3.5) L 09/02/20 00:05 [place] # (Auto) 0.6 10^3/uL (0.0-1.0) 09/02/20 00:05 Eos # (Auto) 0.1 10^3/uL (0.0-0.7) 09/02/20 00:05 Baso # (Auto) 0.0 10^3/uL (0.0-0.1) 09/02/20 00:05 Absolute Nucleated RBC 0.00 x10^3/uL 09/02/20 00:05 Nucleated RBC % 0.0 /100WBC 09/02/20 00:05 Sodium 136 mmol/L (135-145) 09/03/20 05:07 Potassium 5.5 mmol/L (3.5-5.0) H 09/03/20 05:07 Chloride 111 mmol/L (101-111) 09/03/20 05:07 Carbon Dioxide 20 mmol/L (21-32) L 09/03/20 05:07 Anion Gap 5.0 (6-13) L 09/03/20 05:07 BUN 30 mg/dL (6-20) H 09/03/20 05:07 Creatinine 0.7 mg/dL (0.4-1.0) 09/03/20 05:07 Estimated GFR (MDRD) 81 (>89) L 09/03/20 05:07 Glucose 81 mg/dL (70-100) 09/03/20 05:07 Lactic Acid < 0.3 mmol/L (0.5-2.2) L 09/02/20 00:05 Calcium 8.5 mg/dL (8.5-10.3) 09/03/20 05:07 Magnesium 2.2 mg/dL (1.7-2.8) 09/02/20 12:32 Iron 66 ug/dL (28-170) 09/02/20 00:05 TIBC 412 ug/dL (250-450) 09/02/20 00:05 % Saturation 16 % (20-50) L 09/02/20 00:05 Transferrin 294 mg/dL (192-382) 09/02/20 00:05 Total Bilirubin 0.5 mg/dL (0.2-1.0) 09/02/20 00:05 AST 11 IU/L (10-42) 09/02/20 00:05 ALT < 10 IU/L (10-60) L 09/02/20 00:05 Alkaline Phosphatase 73 IU/L (42-121) 09/02/20 00:05 Troponin I High Sens 3.3 ng/L (2.3-14.8) 09/02/20 00:05 Total Protein 5.9 g/dL (6.7-8.2) L 09/02/20 00:05 Albumin 3.6 g/dL (3.2-5.5) 09/02/20 00:05 Globulin 2.3 g/dL (2.1-4.2) 09/02/20 00:05 Albumin/Globulin Ratio 1.6 (1.0-2.2) 09/02/20 00:05 Lipase 49 U/L (22-51) 09/02/20 12:32 Vitamin B12 150 pg/mL (180-914) L 09/02/20 00:05 Folate 10.62 ng/mL (5.90 - >24.8) 09/02/20 00:05 Nasal Adenovirus (PCR) NOT DETECTED 09/02/20 01:03 Nasal B. parapertussis DNA (PCR) NOT DETECTED 09/02/20 01:03 Nasal Coronavir 229E PCR NOT DETECTED 09/02/20 01:03 Nasal Coronavir HKU1 PCR NOT DETECTED 09/02/20 01:03 Nasal Coronavir NL63 PCR NOT DETECTED 09/02/20 01:03 Nasal Coronavir OC43 PCR NOT DETECTED 09/02/20 01:03 Nasal Enterovir/Rhinovir PCR NOT DETECTED 09/02/20 01:03 Nasal Influenza B PCR NOT DETECTED 09/02/20 01:03 Nasal Influenza A PCR NOT DETECTED 09/02/20 01:03 Nasal Parainfluen 1 PCR NOT DETECTED 09/02/20 01:03 Nasal Parainfluen 2 PCR NOT DETECTED 09/02/20 01:03 Nasal Parainfluen 3 PCR NOT DETECTED 09/02/20 01:03 Nasal Parainfluen 4 PCR NOT DETECTED 09/02/20 01:03 Nasal RSV (PCR) NOT DETECTED 09/02/20 01:03 Nasal B.pertussis DNA PCR NOT DETECTED 09/02/20 01:03 Nasal C.pneumoniae (PCR) NOT DETECTED 09/02/20 01:03 Andrea Human Metapneumo PCR NOT DETECTED 09/02/20 01:03 Nasal M.pneumoniae (PCR) NOT DETECTED 09/02/20 01:03 Nasal SARS-CoV-2 (PCR) NOT DETECTED 09/02/20 01:03 Blood Type O POSITIVE 09/02/20 00:33 Blood Type Recheck O POSITIVE 09/02/20 00:05 Antibody Screen NEGATIVE 09/02/20 00:33 Crossmatch IS Only See Detail 09/02/20 00:33 ABX Reporting Has patient been on IV antibiotics over the past 48 hours?: No Current Medications - Current Medications Current Medications: Active Medications Acetaminophen (Acetaminophen 325 Mg Tablet) 650 mg PO Q4HR PRN PRN Reason: Pain 1 to 4 Last Admin: 09/03/20 11:24 Dose: 650 mg Documented by: Hydrocodone Bitart/Acetaminophen (Hydrocod/Acetam 5/325 Mg Tablet) 1 tab PO Q4HR PRN PRN Reason: PAIN Escitalopram Oxalate (Escitalopram 10 Mg Tablet) 20 mg PO DAILY ANA Last Admin: 09/03/20 08:13 Dose: 20 mg Documented by: Hydromorphone HCl (Hydromorphone 0.5 Mg/0.5 Ml Syringe) 0.5 mg IVP Q6H PRN PRN Reason: Pain 8 to 10 Last Admin: 09/03/20 09:51 Dose: 0.5 mg Documented by: Dextrose/Sodium Chloride (D5ns) 1,000 mls @ 100 mls/hr IV .Q10H [facility] Last Admin: 09/03/20 08:13 Dose: 100 mls/hr Documented by: Ondansetron HCl (Ondansetron 4 Mg/2 Ml Vial) 4 mg IVP Q6HR PRN PRN Reason: Nausea / Vomiting Pantoprazole Sodium (Pantoprazole 40 Mg Vial) 40 mg IVP BID [facility] Last Admin: 09/03/20 08:13 Dose: 40 mg Documented by: Sodium Chloride (Sodium Chloride Flush 0.9% 10 Ml Syringe) 10 ml IVP PRN PRN PRN Reason: NEEDED PER PROVIDER ORDERS Last Admin: 09/03/20 08:17 Dose: 10 ml Documented by: Sodium Chloride (Sodium Chloride Flush 0.9% 10 Ml Syringe) 10 ml IVP 0100,0900,1700 [facility] Last Admin: 09/03/20 08:17 Dose: 10 ml Documented by: Dexlansoprazole [Dexilant] 60 mg PO BID 09/18/13 Metoclopramide [Reglan] 10 mg PO TID 10/25/17 Hydralazine HCl 25 mg PO TID 01/26/18 Ibuprofen 200 mg PO Q6H PRN 01/26/18 lisinopriL [Lisinopril] 20 mg PO BID 01/25/19 Escitalopram [Lexapro] 20 mg ORAL DAILY 09/01/20
[2020-09-03 13:33] LABS: HCT - HEMATOCRIT 27.7 % (37.0-47.0); HGB - HEMOGLOBIN 8.8 g/dL (12.0-16.0)
--- NOTE | 2020-09-03 13:49 | ANESTHESIA ---
Pre-Anesthesia VS, & Labs - Diagnosis anemia - Procedure egd Vital Signs: Temp Pulse Resp BP Pulse Ox 37 C 67 16 128/53 L 97 09/03/20 11:42 09/03/20 11:42 09/03/20 11:42 09/03/20 11:42 09/03/20 11:42 Height: 5 ft 4 in Weight (kg): 56.5 kg Body Mass Index: 21.4 BMI Classification: Healthy weight - NPO >8 hours - Is Patient ?: No - Lab Results Current Lab Results: Laboratory Tests 09/03/20 13:27: Hgb 8.8 L, Hct 27.7 L 09/03/20 05:07: WBC 6.7, RBC 2.99 L, Hgb 8.8 L, Hct 28.4 L, MCV 95.0, MCH 29.4, MCHC 31.0 L, RDW 16.8 H, Plt Count 233, MPV 9.3 09/03/20 05:07: Sodium 136, Potassium 5.5 H, Chloride 111, Carbon Dioxide 20 L, Anion Gap 5.0 L, BUN 30 H, Creatinine 0.7, Estimated GFR (MDRD) 81 L, Glucose 81, Calcium 8.5 09/02/20 20:08: Hgb 9.2 L, Hct 29.3 L 09/02/20 12:32: Hgb 9.5 L, Hct 29.1 L 09/02/20 12:32: Lipase 49 09/02/20 12:32: Sodium 135, Potassium 5.3 H, Chloride 107, Carbon Dioxide 20 L, Anion Gap 8.0, BUN 36 H, Creatinine 0.8, Estimated GFR (MDRD) 69 L, Glucose 90, Calcium 8.8, Magnesium 2.2 09/02/20 00:33: Blood Type O POSITIVE, Antibody Screen NEGATIVE, Crossmatch IS Only See Detail 09/02/20 00:05: Vitamin B12 150 L, Folate 10.62 09/02/20 00:05: Blood Type Recheck O POSITIVE 09/02/20 00:05: Iron 66, TIBC 412, % Saturation 16 L, Transferrin 294 09/02/20 00:05: Troponin I High Sens 3.3 09/02/20 00:05: Lactic Acid < 0.3 L 09/02/20 00:05: Sodium 130 L, Potassium 5.0, Chloride 102, Carbon Dioxide 20 L, Anion Gap 8.0, BUN 46 H, Creatinine 1.0, Estimated GFR (MDRD) 54 L, Glucose 120 H, Calcium 9.0, Magnesium 2.2, Total Bilirubin 0.5, AST 11, ALT < 10 L, Alkaline Phosphatase 73, Total Protein 5.9 L, Albumin 3.6, Globulin 2.3, Albumin/Globulin Ratio 1.6, Lipase 56 H 09/02/20 00:05: WBC 10.7, RBC 2.22 L, Hgb 6.6 L*, Hct 20.9 L, MCV 94.1, MCH 29.7, MCHC 31.6 L, RDW 15.9 H, Plt Count 268, MPV 9.6, Neut # (Auto) 9.3 H, Lymph # (Auto) 0.8 L, [place] # (Auto) 0.6, Eos # (Auto) 0.1, Baso # (Auto) 0.0, Absolute Nucleated RBC 0.00, Nucleated RBC % 0.0 Fish Bones: 09/03/20 13:27 09/03/20 05:07 Home Medications and Allergies Home Medications: Ambulatory Orders Escitalopram [Lexapro] 20 mg ORAL DAILY 09/01/20 Active Medications Acetaminophen (Acetaminophen 325 Mg Tablet) 650 mg PO Q4HR PRN PRN Reason: Pain 1 to 4 Last Admin: 09/03/20 11:24 Dose: 650 mg Documented by: Hydrocodone Bitart/Acetaminophen (Hydrocod/Acetam 5/325 Mg Tablet) 1 tab PO Q4HR PRN PRN Reason: PAIN Escitalopram Oxalate (Escitalopram 10 Mg Tablet) 20 mg PO DAILY [facility] Last Admin: 09/03/20 08:13 Dose: 20 mg Documented by: Hydromorphone HCl (Hydromorphone 0.5 Mg/0.5 Ml Syringe) 0.5 mg IVP Q6H PRN PRN Reason: Pain 8 to 10 Last Admin: 09/03/20 09:51 Dose: 0.5 mg Documented by: Dextrose/Sodium Chloride (D5ns) 1,000 mls @ 100 mls/hr IV .Q10H [facility] Last Admin: 09/03/20 08:13 Dose: 100 mls/hr Documented by: Ondansetron HCl (Ondansetron 4 Mg/2 Ml Vial) 4 mg IVP Q6HR PRN PRN Reason: Nausea / Vomiting Pantoprazole Sodium (Pantoprazole 40 Mg Vial) 40 mg IVP BID [facility] Last Admin: 09/03/20 08:13 Dose: 40 mg Documented by: Sodium Chloride (Sodium Chloride Flush 0.9% 10 Ml Syringe) 10 ml IVP PRN PRN PRN Reason: NEEDED PER PROVIDER ORDERS Last Admin: 09/03/20 08:17 Dose: 10 ml Documented by: Sodium Chloride (Sodium Chloride Flush 0.9% 10 Ml Syringe) 10 ml IVP 0100,0900,1700 [facility] Last Admin: 09/03/20 08:17 Dose: 10 ml Documented by: Dexlansoprazole [Dexilant] 60 mg PO BID 09/18/13 Metoclopramide [Reglan] 10 mg PO TID 10/25/17 Hydralazine HCl 25 mg PO TID 01/26/18 Ibuprofen 200 mg PO Q6H PRN 01/26/18 lisinopriL [Lisinopril] 20 mg PO BID 01/25/19 Escitalopram [Lexapro] 20 mg ORAL DAILY 09/01/20 Allergies/Adverse Reactions: Allergies Allergy/AdvReac Type Severity Reaction Status Date / Time Penicillins Allergy Intermediate Rash Verified 09/01/20 21:15 influenza virus vacc Allergy Rash Verified 09/01/20 21:15 trivalent, split [From Fluzone] diazepam [From Valium] AdvReac Intermediate "run up Verified 09/01/20 21:15 and down the melara" Anes History & Medical History - Anesthetic History Anesthesia Complications: reports: No previous complications - Medical History Cardiovascular: reports: Hypertension, High cholesterol, Coronary artery disease, MD Pulmonary: reports: COPD Gastrointestinal: reports: GERD, Chronic diarrhea, Other Urinary: reports: Incontinence Neuro: reports: CVA, TIA Musculoskeletal: reports: Rheumatoid arthritis, Osteoporosis Endocrine/Autoimmune: reports: Type 2 diabetes Blood Disorders: reports: Anemia Skin: reports: None Smoking Status: Current every day smoker - Surgical History General: Cholecystectomy, Appendectomy, Bowel surgery Cardiothoracic: Coronary stent Gynecologic: Hysterectomy Orthopedic: Hip replacement Exam General: Alert, Oriented x3 Dental: Dentures full Upper, Dentures full Lower Mouth Opening: Greater than 4 Fingerbreadths Neck Mobility: Normal Mallampati classification: II Respiratory: Lungs clear Cardiovascular: Regular rate Plan Anesthesia Type: MAC Consent for Procedure(s) Verified and Reviewed: Yes Code Status: Attempt Resuscitation ASA classification: 3-Severe systemic disease Is this case an emergency?: No
[2020-09-03] MEDS ORDERED: LIDO GARGLE 30 ML BOTTLE ONE (13:55)
[2020-09-03] MEDS ORDERED: MIDAZOLAM 2 MG/2 ML VIAL ONE (14:04)
[2020-09-03] MEDS ORDERED: KETAMINE 500 MG/10 ML VIAL ONE (14:04)
[2020-09-03] MEDS ORDERED: PROPOFOL 200 MG/20 ML VIAL IVP ONE (14:05)
[2020-09-03] MEDS ORDERED: LIDOCAINE-MPF 2% 5 ML VIAL ONE (14:07)
[2020-09-03] MEDS ORDERED: LACTATED RINGERS 1,000 ML IV ONE (14:28)
[2020-09-03] MEDS ORDERED: HYDROmorphone 0.5 MG/0.5 ML SYRINGE IVP PRN (14:54)
[2020-09-03] MEDS ORDERED: ePHEDrine 50 MG/ML VIAL IVP PRN (14:54)
[2020-09-03] MEDS ORDERED: ATROPINE ABBOJECT 1 MG/10 ML SYRINGE IVP PRN (14:54)
[2020-09-03] MEDS ORDERED: MORPHINE 2 MG/ML CARPUJECT IVP PRN (14:54)
[2020-09-03] MEDS ORDERED: METOCLOPRAMIDE 10 MG/2 ML VIAL IVP PRN (14:54)
[2020-09-03] MEDS ORDERED: fentaNYL 100 MCG/2 ML VIAL IVP PRN (14:54)
[2020-09-03] MEDS ORDERED: ONDANSETRON 4 MG/2 ML VIAL IVP PRN (14:54)
[2020-09-03] MEDS ORDERED: NALOXONE 0.4 MG/ML VIAL IVP PRN (14:54)
--- NOTE | 2020-09-03 14:54 | ANESTHESIA POST OP EVALUATION ---
Anesthesia Post Eval - Post Anesthesia Eval Vitals: Last Vital Signs Temp 36.4 C L 09/03/20 14:42 Pulse 71 09/03/20 14:42 Resp 12 09/03/20 14:42 BP 130/60 09/03/20 14:42 Pulse Ox 96 09/03/20 14:42 CV Function Including HR & BP: positive: Stable Pain Control: positive: Satisfactory Nausea & Vomiting: positive: Negative Mental Status: positive: Patient Participates Respiratory Status: Airway Patent Hydration Status: Satisfactory Anesthesia Complications: positive: None
[2020-09-03] MEDS ORDERED: LACTATED RINGERS 1,000 ML IV SCH (15:00)
[2020-09-03] MEDS: HYDROcod/ACETAM 5/325 MG TABLET PO PRN (20:40)
[2020-09-03 21:22] LABS: HCT - HEMATOCRIT 26.5 % (37.0-47.0); HGB - HEMOGLOBIN 8.3 g/dL (12.0-16.0)
[2020-09-04] MEDS: SODIUM CHLORIDE FLUSH 0.9% 10 ML SYRINGE IVP SCH ×2 (00:01→05:10)
[2020-09-04 00:34] LABS: HCT - HEMATOCRIT 25.7 % (37.0-47.0); MEAN CORPUSCULAR HEMOGLOBIN 29.2 pg (27.0-31.0); MEAN CORPUSCULAR HGB CONC 31.1 g/dL (32.0-36.0); MEAN CORPUSCULAR VOLUME 93.8 fL (81.0-99.0); MEAN PLATELET VOLUME 9.3 fL (7.9-10.8); RED BLOOD COUNT 2.74 10^6/uL (4.20-5.40); RED CELL DISTRIBUTION WIDTH 16.4 % (12.0-15.0); WHITE BLOOD COUNT 6.9 x10^3/uL (4.8-10.8)
[2020-09-04] MEDS: HYDROcod/ACETAM 5/325 MG TABLET PO PRN ×2 (01:47→09:03)
[2020-09-04] MEDS: HYDROmorphone 0.5 MG/0.5 ML SYRINGE IVP PRN ×2 (05:11→11:49)
[2020-09-04] MEDS: ACETAMINOPHEN 325 MG TABLET PO PRN (05:21)
[2020-09-04 05:46] LABS: CHOL/HDL RATIO 3.2 (<4.4); CHOLESTEROL 112 mg/dL; HDL CHOLESTEROL 35 mg/dL; LDL CHOLESTEROL,CALCULATED 59 mg/dL; LDL/HDL RATIO 1.7 (<4.4); TRIGLYCERIDES 92 mg/dL; VLDL CHOLESTEROL 18 mg/dL
[2020-09-04 05:50] LABS: CALCIUM 8.6 mg/dL (8.5-10.3); CREATININE 0.7 mg/dL (0.4-1.0); POTASSIUM 4.7 mmol/L (3.5-5.0)
[2020-09-04] MEDS ORDERED: hydrALAZINE 25 MG TABLET PO SCH (08:00)
[2020-09-04 08:30] LABS: HCT - HEMATOCRIT 26.1 % (37.0-47.0); HGB - HEMOGLOBIN 8.2 g/dL (12.0-16.0)
[2020-09-04] MEDS ORDERED: lisinopriL 20 MG TABLET PO SCH (09:00)
[2020-09-04] MEDS: ESCITALOPRAM 10 MG TABLET PO SCH (09:03)
[2020-09-04] MEDS: PANTOPRAZOLE 40 MG VIAL IVP SCH (09:09)
--- NOTE | 2020-09-04 10:07 | Discharge Plan ---
Discharge Plan Problem Reviewed?: Yes Disposition: Home, Self Care Condition: Stable Prescriptions: HYDROcod/ACETAM 5/325 [[place] 5/325] 1 tab PO Q4HR PRN #20 g PRN Reason: Pain Sucralfate [Carafate] 1 gm PO TID #90 g Diet: Regular Activity Restrictions: Activity as Tolerated Shower Restrictions: No (fall precaution) Instruction Topics: Bleeding Gastrointestinal, Gastric Ulcer Health Concerns: GI bleed, left carotid stenosis Plan of Treatment: you had EGD done in hospital, you were found to have gastric ulcers. Advise you hold your home Ibuprofen and other NSAIDs, you may continue your home Dexlansoprazole and you are prescribed new meds Carafate to help healing your gastric ulcers, you may followup with GI surgeon in 4-6 weeks to monitor your gastric ulcer healing. You were found to have stenosis of proximal 90% in left proximal internal carotid artery, you have no symptoms and stable now. you may followup with vascular surgeon as out-pt continue to monitor and manage. Care Goals: stabilization and improvement of your medical conditions Assessment: discussed the care plan with you, answered your questions, you understood. Additional Instructions or Follow Up instructions: You may followup with your PCP in one week, recheck CBC to monitor your HGB in one week, followup with GI surgeon in 4-6 to monitor your gastric ulcer healing, followup with vascular surgeon as out-pt to monitor and manage your left internal carotid stenosis. Should your symptoms return or worsen, you may present ER or call 911 for help. No Smoking: If you smoke, Please STOP! Call for help. Follow-up with: Daniella Melton MD [Primary Care Provider] -
--- NOTE | 2020-09-04 10:29 | DISCHARGE SUMMARY ---
Discharge Summary Admit Date: 09/02/20 Discharge Date: 09/04/20 Discharging Provider: Sp Tinajero Primary Care Provider: Daniella Gillespie Condition at Discharge: Stable Discharge Disposition: 01 Home, Self Care Discharge Facility Name: home - DIAGNOSES Discharge Diagnoses with Status of Each Condition: (1) GI bleed Patient had a EGD done in hospital which show patient has gastric ulcers. Biopsy was done by the GI surgeon. Patient will give PPI IV in hospital. Patient hemoglobin is stable and continue increases. continue home PPI and prescribed carafate, followup With GI surgeon in 4 to 6 weeks to monitor gastric ulcer healing (2) Anemia Patient had hemoglobin 6.6 in the admission, Occult stool test is positive. It is more likely from patient GI bleeding. Anemia study show B12 deficiency as well. Patient had a 2 unit blood transfusion. Patient was given intravenous B12. Patient had a EGD done in hospital which show patient has gastric ulcers. Patient hemoglobin is stable and continue increases. Follow-up PCP in 1 week to check hemoglobin again. (3) Syncope Resolved. Echo and EKG, troponin study all are unremarkable. Is likely caused by combination of GI bleeding, severe anemia and dehydration. pt Was give blood transfusion and the intravenous IV fluids. Patient is hemodynamic stable (4) Dehydration resolved. Patient has elevated BUN and sightly elevated creatinine in the admission. Patient was given intravenous IV fluids. Patient dehydration is resolved. (5) HTN (hypertension) Stable, continue home blood pressure medicine (6) Carotid stenosis, left Patient has a history of aneurysm of right internal carotid artery in the admission HPI, and pt complain of neck pain in the admission per pt report. CTA show Approximately 50% stenosis in the right internal carotid artery, No aneurysm found. However CTA of the neck show high-grade stenosis of proximal 90% in left proximal internal carotid artery. Patient has no Stroke symptoms, patient has no bilaterally or unilaterally weakness Or focal neuro deficits. AT this point, discussed the test result with the patient for further care plan, patient agree for outpatient follow-up with vascular surgeon For further management. (7) COPD (chronic obstructive pulmonary disease) Stable (8) Hyperkalemia resolved. - HPI History of Present Illness: This is a 80-years old female with a past medical history Significant for Stroke, Hypotension, CAD with coronary stent, Hyperlipidemia, colon cancer status post colon resection, History of hip fracture with hip repair, COPD, Who present to ER complain one episode of syncope. Patient was found significant anemia of hemoglobin 6.6 and stool occult blood test is positive. Patient reported she take ibuprofen frequently For her pain control. - CONSULTS | PROCEDURES Consultations: Dr. Matt Procedures: EGD - HOSPITAL COURSE Hospital Course: Patient was admitted for an episode of syncope. Patient was found to have severe anemia, dehydration, Patient also present hypotension in the admission. Patient was found to have GI bleeding, stool occult tested is positive. Patient frequently take ibuprofen in the home for chronic pain control. Patient had a EGD done in hospital which did find patient had a gastric ulcers. Patient was given intravenous PPI in the hospital. Patient's echo, EKG, troponin study all are unremarkable. Patient had elevated potassium, pt was given insulin, then her hyperkalemia was resolved. Patient was discharged in hemodynamic stable cond ition. - ALLERGIES Allergies/Adverse Reactions: Allergies Allergy/AdvReac Type Severity Reaction Status Date / Time Penicillins Allergy Intermediate Rash Verified 09/01/20 21:15 influenza virus vacc Allergy Rash Verified 09/01/20 21:15 trivalent, split [From Fluzone] diazepam [From Valium] AdvReac Intermediate "run up Verified 09/01/20 21:15 and down the melara" - MEDICATIONS Home Medications: Ambulatory Orders Medication Instructions Recorded Confirmed Dexlansoprazole [Dexilant] 60 mg PO BID 09/18/13 09/01/20 Metoclopramide [Reglan] 10 mg PO TID 10/25/17 09/01/20 Hydralazine HCl 25 mg PO TID 01/26/18 09/01/20 lisinopriL [Lisinopril] 20 mg PO BID 01/25/19 09/01/20 Escitalopram [Lexapro] 20 mg ORAL DAILY 09/01/20 09/01/20 Gabapentin [Neurontin] 300 mg PO TID 09/04/20 09/04/20 HYDROcod/ACETAM 5/325 [Henderson 5/325] 1 tab PO Q4HR PRN #20 g 09/04/20 Sucralfate [Carafate] 1 gm PO TID #90 g 09/04/20 - PHYSICAL EXAM AT DISCHARGE General Appearance: positive: No acute distress, Alert. negative: Lethargic Eyes Bilateral: positive: Normal inspection, PERRL, No lid inflammation ENT: positive: ENT inspection nml, No signs of dehydration. negative: Purulent nasal drainage Neck: positive: Nml inspection, Trachea midline. negative: Thyromegaly, Tracheal deviation Respiratory: positive: Chest non-tender, No respiratory distress. negative: Wheezes, Rales Cardiovascular: positive: Regular rate & rhythm, No murmur. negative: Tachycardia, Bradycardia, Systolic murmur, Diastolic murmur Peripheral Pulses: positive: 2+ Abdomen: positive: Non-tender, Nml bowel sounds, No distention. negative: Tenderness, Guarding, Rebound Back: positive: Nml inspection. negative: CVA tenderness (R), CVA tenderness (L) Skin: positive: Color nml, Warm, Dry. negative: Cyanosis, Diaphoresis, Pallor Extremities: positive: Non-tender, Nml appearance. negative: Calf tenderness Neurologic/Psychiatric: positive: Oriented x3, Sensation nml. negative: Weakness, Sensory loss, Facial droop, Slurred/abnml speech, Depressed mood/affect - LABS Result Diagrams: 09/04/20 12:15 09/04/20 05:19 - FOLLOW UP Follow Up: you had EGD done in hospital, you were found to have gastric ulcers. Advise you hold your home Ibuprofen and other NSAIDs, you may continue your home Dexlan soprazole and you are prescribed new meds Carafate to help healing your gastric ulcers, you may followup with GI surgeon in 4-6 weeks to monitor your gastric ulcer healing. You were found to have stenosis of proximal 90% in left proximal internal carotid artery, you have no symptoms and stable now. you may followup with vascular surgeon as out-pt continue to monitor and manage. You may followup with your PCP in one week, recheck CBC to monitor your HGB in one week, followup with GI surgeon in 4-6 to monitor your gastric ulcer healing, followup with vascular surgeon as out-pt to monitor and manage your left internal carotid stenosis. Should your symptoms return or worsen, you may present ER or call 911 for help. - TIME SPENT Time Spent in Discharge (Minutes): 30
[2020-09-04 12:29] LABS: HCT - HEMATOCRIT 27.2 % (37.0-47.0); HGB - HEMOGLOBIN 8.5 g/dL (12.0-16.0); MEAN CORPUSCULAR HEMOGLOBIN 29.4 pg (27.0-31.0); MEAN CORPUSCULAR HGB CONC 31.3 g/dL (32.0-36.0); MEAN CORPUSCULAR VOLUME 94.1 fL (81.0-99.0); MEAN PLATELET VOLUME 8.9 fL (7.9-10.8); RED BLOOD COUNT 2.89 10^6/uL (4.20-5.40); RED CELL DISTRIBUTION WIDTH 16.1 % (12.0-15.0); WHITE BLOOD COUNT 7.4 x10^3/uL (4.8-10.8)
[2020-09-04 12:34] VITALS: BP 146/58
== END 2020-09-04 12:45 | disposition home or self-care (01) | DRG 378 ==
LOC: EDUNIT# → ED 21:04 → MS2 09-02 02:05
PROVIDERS: ADMIT Internal Medicine; ATTEND Nurse Practitioner Gerontology
PROC: 30233N1 Transfusion of Nonautologous Red Blood Cells into Peripheral Vein, Percutaneous Approach (ICD-10-PCS; principal; 2020-09-02)
PROC: 0DB78ZX Excision of Stomach, Pylorus, Via Natural or Artificial Opening Endoscopic, Diagnostic (ICD-10-PCS; 2020-09-03)
PROC: 0DB68ZX Excision of Stomach, Via Natural or Artificial Opening Endoscopic, Diagnostic (ICD-10-PCS; 2020-09-03)
DX: I95.89 Other hypotension (principal); R19.5 Other fecal abnormalities; K25.4 Chronic or unspecified gastric ulcer with hemorrhage; E87.1 Hypo-osmolality and hyponatremia; R55 Syncope and collapse; D64.9 Anemia, unspecified; D50.0 Iron deficiency anemia secondary to blood loss (chronic); D51.9 Vitamin B12 deficiency anemia, unspecified; E86.0 Dehydration; R11.0 Nausea; F17.200 Nicotine dependence, unspecified, uncomplicated; I65.23 Occlusion and stenosis of bilateral carotid arteries; Z20.822 Contact with and (suspected) exposure to COVID-19; E87.5 Hyperkalemia; E11.9 Type 2 diabetes mellitus without complications; K21.9 Gastro-esophageal reflux disease without esophagitis; J44.9 Chronic obstructive pulmonary disease, unspecified; I95.9 Hypotension, unspecified; I10 Essential (primary) hypertension; W18.30XA Fall on same level, unspecified, initial encounter; E78.5 Hyperlipidemia, unspecified; I25.10 Atherosclerotic heart disease of native coronary artery without angina pectoris; R74.8 Abnormal levels of other serum enzymes; R51.9 Headache, unspecified; Y92.000 Kitchen of unspecified non-institutional (private) residence as the place of occurrence of the external cause; Z87.891 Personal history of nicotine dependence; Z86.73 Personal history of transient ischemic attack (TIA), and cerebral infarction without residual deficits; Z79.899 Other long term (current) drug therapy; Z85.038 Personal history of other malignant neoplasm of large intestine; I25.2 Old myocardial infarction; Z90.49 Acquired absence of other specified parts of digestive tract; Z95.5 Presence of coronary angioplasty implant and graft
CPT/HCPCS: 36415; 70496; 70498; 80048; 80053; 80061; 82272; 82607; 82746; 83540; 83605; 83690; 83735; 84466; 84484; 85014; 85018; 85025; 85027; 86850; 86900; 86901; 86920; 87631; 88305; 93005; 93306; 96361; 96374; 96375; 99285; A9270; J1170; J1815; J7120; P9016; Q9967; 0202U; 83721

== ENCOUNTER 2020-09-11 17:06 | Outpatient (CLI) | payer MEDICARE | END 2020-09-11 17:07 | disposition short-term general hospital (02) | LOC: EMS 17:06 | DX: R06.02 Shortness of breath (principal) | CPT/HCPCS: A0425; A0429 ==